=== PATIENT | male | born 1975 | race Caucasian/White ===

== ENCOUNTER 2020-02-05 02:57 | Emergency (ER) | payer MEDICARE, OTHER ==
[~2020-02-05] VITALS: Ht 172.7 cm; Wt 90.0 kg
[2020-02-05] MEDS ORDERED: ASPIRIN 81 MG CHEW TABLET PO ONE (03:30)
[2020-02-05 03:47] LABS: BASO % 0.4 % (0.0-1.0); EOS # 0.2 10^3/uL (0.0-0.5); EOS % 2.5 % (0.0-3.0); HEMATOCRIT 27.3 % (42.0-52.0); HEMOGLOBIN 9.1 g/dl (13.5-17.5); LYMPH % 11.6 % (24.0-44.0); MEAN CORPUSCULAR HEMOGLOBIN 28.5 pg (27.0-33.0); MEAN CORPUSCULAR HGB CONC 33.3 g/dl (32.0-36.5); MEAN CORPUSCULAR VOLUME 85.6 fl (80.0-96.0); MONO # 0.6 10^3/uL (0.0-0.8); MONO % 7.3 % (0.0-5.0); NEUTROPHILS # 6.6 10^3/uL (1.5-8.5); NEUTROPHILS % 77.4 % (36.0-66.0); PLATELET COUNT, AUTOMATED 177 10^3/uL (150-450); RED BLOOD COUNT 3.19 10^6/uL (4.30-6.10); WHITE BLOOD COUNT 8.5 10^3/uL (4.0-10.0)
[2020-02-05 03:57] LABS: INR 0.96
[2020-02-05 03:58] LABS: PARTIAL THROMBOPLASTIN TIME 26.6 SECONDS (24.2-38.5)
--- NOTE | 2020-02-05 04:22 | REPVR ---
PROCEDURE INFORMATION: Exam: XR Chest, 2 Views Exam date and time: 02/05/2020 3:57 AM Age: 44 years old Clinical indication: Chest pain; Type not specified TECHNIQUE: Imaging protocol: XR of the chest Views: 2 views. COMPARISON: No relevant prior studies available. FINDINGS: Lungs: Unremarkable. No consolidation. Pleural space: Unremarkable. No pleural effusion. No pneumothorax. Heart/Mediastinum: Unremarkable. No cardiomegaly. Bones/joints: Unremarkable. IMPRESSION: No acute findings. Electronically signed by: Jenifer Olson On 02/05/2020 04:23:00 AM
--- NOTE | 2020-02-05 04:23 | REPVR ---
PROCEDURE INFORMATION: Exam: US Duplex Lower Extremity Veins, Bilateral Exam date and time: 02/05/2020 4:16 AM Age: 44 years old Clinical indication: Swelling (edema) of limb; Lower extremity, bilateral; Additional info: Leg pain edema R/O dvt TECHNIQUE: Imaging protocol: Real-time duplex ultrasound of the extremities with 2-D elizabeth scale, color Doppler flow and spectral waveform analysis with image documentation. Complete exam focused on the bilateral lower extremity veins. COMPARISON: No relevant prior studies available. FINDINGS: Right deep veins: Unremarkable. The common femoral, femoral, proximal profunda femoral and popliteal veins are patent without thrombus. Normal Doppler waveforms. Normal compressibility and/or augmentation response. Right superficial veins: Saphenofemoral junction is patent without thrombus. Left deep veins: Unremarkable. The common femoral, femoral, proximal profunda femoral and popliteal veins are patent without thrombus. Normal Doppler waveforms. Normal compressibility and/or augmentation response. Left superficial veins: Saphenofemoral junction is patent without thrombus. Soft tissues: Unremarkable. IMPRESSION: No evidence of deep vein thrombosis. Electronically signed by: Jenfier Olson On 02/05/2020 04:24:08 AM
[2020-02-05 04:34] LABS: ALBUMIN 2.7 GM/DL (3.2-5.2); ALT/SGPT 27 U/L (12-78); BILIRUBIN,DIRECT < 0.1 MG/DL (0.0-0.2); BILIRUBIN,TOTAL 0.2 MG/DL (0.2-1.0); BLOOD UREA NITROGEN 98 MG/DL (7-18); CALCIUM LEVEL 7.7 MG/DL (8.5-10.1); CARBON DIOXIDE LEVEL 29 MEQ/L (21-32); CHLORIDE LEVEL 100 MEQ/L (98-107); CK-MB VALUE MASS 7.6 NG/ML (<3.6); CPK CREATINE PHOSPHOKINASE 482 U/L (39-308); GLOMERULAR FILTRATION RATE 4.2 (>60); GLUCOSE, FASTING 285 MG/DL (70-100); LIPASE 451 U/L (73-393); MB/CK RELATIVE INDEX 1.58 (< OR =4); POTASSIUM SERUM 4.5 MEQ/L (3.5-5.1); SODIUM LEVEL 137 MEQ/L (136-145); TOTAL PROTEIN 5.6 GM/DL (6.4-8.2); TROPONIN I 0.02 NG/ML (< 0.10)
--- NOTE | 2020-02-05 06:12 | ECGEPIP ---
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
[2020-02-05 10:02] LABS: CK-MB VALUE MASS 7.4 NG/ML (<3.6); MB/CK RELATIVE INDEX 1.67 (< OR =4); TROPONIN I 0.02 NG/ML (< 0.10)
[2020-02-05 10:23] VITALS: BP 172/85
--- NOTE | 2020-02-06 08:23 | ECGEPIP ---
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
== END 2020-02-05 10:40 | disposition home or self-care (01) ==
LOC: M ED 02:57
DX: R07.89 Other chest pain (principal); E11.9 Type 2 diabetes mellitus without complications; I10 Essential (primary) hypertension; N18.6 End stage renal disease; Z99.2 Dependence on renal dialysis

== ENCOUNTER 2020-04-26 16:35 | Emergency (ER) | payer MEDICARE, OTHER ==
[~2020-04-26] VITALS: Ht 165.1 cm; Wt 80.9 kg
[2020-04-26] MEDS ORDERED: NIFE1POW PO (17:13)
[2020-04-26] MEDS ORDERED: CARV25TA PO (17:13)
[2020-04-26] MEDS ORDERED: INSUH10VL (17:13)
[2020-04-26] MEDS ORDERED: GENT0.1C2 TOP (17:13)
[2020-04-26] MEDS ORDERED: HYDR-3910 PO (17:13)
[2020-04-26] MEDS ORDERED: CLON-412 PO (17:13)
[2020-04-26] MEDS ORDERED: [UNRECOGNIZED DRUG - CODE] PO (17:13)
[2020-04-26] MEDS ORDERED: SEVE800T3 PO (17:13)
[2020-04-26] MEDS ORDERED: LOSA100T50 PO (17:13)
--- NOTE | 2020-04-26 17:22 | REP ---
INDICATION: CHEST PAIN. COMPARISON: 02/05/2020. TECHNIQUE: SINGLE PORTABLE AP VIEW OF THE CHEST WAS PERFORMED. FINDINGS: THERE IS NO ACUTE INFILTRATE OR PULMONARY EDEMA. LUNGS ARE CLEAR. HEART IS NOT SIGNIFICANTLY ENLARGED. MEDIASTINAL SILHOUETTE IS UNREMARKABLE. THE VISUALIZED OSSEOUS STRUCTURES ARE INTACT. IMPRESSION: NO ACUTE PULMONARY DISEASE. <Electronically signed by Gustavo Ivory > 04/26/20 [id number]
[2020-04-26 17:35] LABS: BASO % 0.3 % (0.0-1.0); EOS # 0.1 10^3/uL (0.0-0.5); EOS % 2.1 % (0.0-3.0); HEMATOCRIT 21.8 % (42.0-52.0); HEMOGLOBIN 7.2 g/dl (13.5-17.5); LYMPH # 0.6 10^3/uL (1.5-5.0); LYMPH % 10.8 % (24.0-44.0); MEAN CORPUSCULAR HEMOGLOBIN 30.4 pg (27.0-33.0); MONO # 0.5 10^3/uL (0.0-0.8); NEUTROPHILS # 4.6 10^3/uL (1.5-8.5); NEUTROPHILS % 78.5 % (36.0-66.0); PLATELET COUNT, AUTOMATED 197 10^3/uL (150-450); RED BLOOD COUNT 2.37 10^6/uL (4.30-6.10); WHITE BLOOD COUNT 5.8 10^3/uL (4.0-10.0)
[2020-04-26 18:15] LABS: ALBUMIN 2.2 GM/DL (3.2-5.2); ALT/SGPT 14 U/L (12-78); BILIRUBIN,DIRECT < 0.1 MG/DL (0.0-0.2); BILIRUBIN,TOTAL 0.5 MG/DL (0.2-1.0); BLOOD UREA NITROGEN 55 MG/DL (7-18); CALCIUM LEVEL 7.6 MG/DL (8.5-10.1); CARBON DIOXIDE LEVEL 32 MEQ/L (21-32); CHLORIDE LEVEL 101 MEQ/L (98-107); CK-MB VALUE MASS 4.7 NG/ML (<3.6); CPK CREATINE PHOSPHOKINASE 256 U/L (39-308); GLOMERULAR FILTRATION RATE 5.8 (>60); GLUCOSE, FASTING 65 MG/DL (70-100); LIPASE 96 U/L (73-393); MB/CK RELATIVE INDEX 1.84 (< OR =4); POTASSIUM SERUM 4.7 MEQ/L (3.5-5.1); SODIUM LEVEL 140 MEQ/L (136-145); TOTAL PROTEIN 5.2 GM/DL (6.4-8.2); TROPONIN I < 0.02 NG/ML (< 0.10)
[2020-04-26 19:30] VITALS: BP 121/69
--- NOTE | 2020-04-27 19:53 | ECGEPIP ---
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
== END 2020-04-26 19:47 | disposition home or self-care (01) ==
LOC: M ED 16:35
DX: D64.9 Anemia, unspecified (principal); I10 Essential (primary) hypertension; E11.9 Type 2 diabetes mellitus without complications; Z99.2 Dependence on renal dialysis; Z79.4 Long term (current) use of insulin; Z79.899 Other long term (current) drug therapy

== ENCOUNTER 2020-04-29 21:19 | Inpatient (IN) | payer OTHER, MEDICARE ==
[~2020-04-29] VITALS: Ht 172.7 cm; Wt 75.6 kg
[~2020-04-29 21:19] MED LIST: CARV25TA PO; CLON-412 PO; GENT0.1C2 TOP; HYDR-3910 PO; HumaLOG INSULIN (NovoLOG) PER UNIT SC SCH; INSUH10VL; LOSA100T50 PO; NIFE1POW PO; SEVE800T3 PO; [UNRECOGNIZED DRUG - CODE] PO
[2020-04-29] MEDS ORDERED: MORPHINE 2 MG/ML 1ML VIAL (J2270) IV ONE (21:30)
[2020-04-29] MEDS ORDERED: MORPHINE 4 MG/ML 1ML VIAL/SYRINGE (J2270) IV ONE (21:45)
[2020-04-29 22:09] LABS: BASO % 0.3 % (0.0-1.0); EOS # 0.1 10^3/uL (0.0-0.5); EOS % 0.5 % (0.0-3.0); HEMATOCRIT 23.4 % (42.0-52.0); HEMOGLOBIN 7.6 g/dl (13.5-17.5); LYMPH # 0.5 10^3/uL (1.5-5.0); LYMPH % 5.1 % (24.0-44.0); MEAN CORPUSCULAR HEMOGLOBIN 29.7 pg (27.0-33.0); MEAN CORPUSCULAR HGB CONC 32.5 g/dl (32.0-36.5); MEAN CORPUSCULAR VOLUME 91.4 fl (80.0-96.0); MONO # 0.9 10^3/uL (0.0-0.8); MONO % 8.7 % (2.0-8.0); NEUTROPHILS # 8.3 10^3/uL (1.5-8.5); NEUTROPHILS % 85.1 % (36.0-66.0); PLATELET COUNT, AUTOMATED 240 10^3/uL (150-450); RED BLOOD COUNT 2.56 10^6/uL (4.30-6.10); WHITE BLOOD COUNT 9.8 10^3/uL (4.0-10.0)
[2020-04-29 22:42] LABS: ALBUMIN 2.1 GM/DL (3.2-5.2); ALT/SGPT 13 U/L (12-78); BILIRUBIN,DIRECT < 0.1 MG/DL (0.0-0.2); BILIRUBIN,TOTAL 0.2 MG/DL (0.2-1.0); BLOOD UREA NITROGEN 38 MG/DL (7-18); CALCIUM LEVEL 8.1 MG/DL (8.5-10.1); CARBON DIOXIDE LEVEL 32 MEQ/L (21-32); CHLORIDE LEVEL 97 MEQ/L (98-107); CK-MB VALUE MASS 4.6 NG/ML (<3.6); CPK CREATINE PHOSPHOKINASE 216 U/L (39-308); CREATININE FOR GFR 9.47 MG/DL (0.70-1.30); GLOMERULAR FILTRATION RATE 6.4 (>60); GLUCOSE, FASTING 145 MG/DL (70-100); LIPASE 73 U/L (73-393); MB/CK RELATIVE INDEX 2.13 (< OR =4); POTASSIUM SERUM 3.8 MEQ/L (3.5-5.1); SODIUM LEVEL 138 MEQ/L (136-145); TOTAL PROTEIN 5.5 GM/DL (6.4-8.2); TROPONIN I < 0.02 NG/ML (< 0.10)
--- NOTE | 2020-04-29 23:02 | REPVR ---
PROCEDURE INFORMATION: Exam: CT Abdomen And Pelvis Without Contrast Exam date and time: 04/29/2020 10:36 PM Age: 44 years old Clinical indication: Abdominal pain; Generalized; Additional info: Umbilical hernia, peritoneal dialysis, abd pain TECHNIQUE: Imaging protocol: Computed tomography of the abdomen and pelvis without contrast. Radiation optimization: All CT scans at this facility use at least one of these dose optimization techniques: automated exposure control; mA and/or kV adjustment per patient size (includes targeted exams where dose is matched to clinical indication); or iterative reconstruction. COMPARISON: No relevant prior studies available. FINDINGS: Tubes, catheters and devices: Peritoneal dialysis catheter extending into the posterior pelvis. Lungs: Minimal bibasilar fibro-atelectatic change. Liver: Normal. No mass. Gallbladder and bile ducts: Normal. No calcified stones. No ductal dilation. Pancreas: Normal. No ductal dilation. Spleen: Normal. No splenomegaly. Adrenal glands: Normal. No mass. Kidneys and ureters: Moderate bilateral renal atrophy. Stomach and bowel: Unremarkable. No obstruction. No mucosal thickening. Appendix: There are no changes of appendicitis. A normal appendix is not seen. Intraperitoneal space: Moderate peritoneal ascites with foci of free air consistent with peritoneal dialysis with intraperitoneal catheter. Vasculature: There is mild calcification of the abdominal aorta with extension into the iliac arteries. Lymph nodes: Unremarkable. No enlarged lymph nodes. Urinary bladder: There is bladder wall thickening, however, the bladder is nondistended and is nonspecific. Reproductive: Calcification of the vas deferens. Bones/joints: Unremarkable. No acute fracture. Soft tissues: Moderate epigastric periumbilical hernia containing fat and fluid. IMPRESSION: 1. There is calcification of the vas deferens consistent with diabetes. 2. Peritoneal dialysis catheter in position with intraperitoneal fluid and free air. 3. Moderate epigastric periumbilical hernia containing fluid and fat. 4. Moderate bilateral renal atrophy. 5. There is bladder wall thickening, however, the bladder is nondistended and is nonspecific. Electronically signed by: Manish Recinos On 04/29/2020 23:03:17 PM
[2020-04-30] VITALS (11 sets, daily range): BP systolic 119–178; BP diastolic 54–88
[2020-04-30 00:36] LABS: APPEARANCE, BODY FLUID CLOUDY (CLEAR); PERITONEAL DIALYSATE FL COLOR PALE YELLOW (COLORLESS); SOURCE, BODY FLUID PERITONEAL DIALYSATE
[2020-04-30] MEDS ORDERED: SEVE800T3 PO (01:02)
[2020-04-30] MEDS ORDERED: INSUH10VL SC (01:02)
[2020-04-30] MEDS ORDERED: NIFE90TA20 PO (01:02)
[2020-04-30] MEDS ORDERED: HYDR-3910 PO (01:02)
[2020-04-30] MEDS ORDERED: CLON-412 PO (01:02)
[2020-04-30] MEDS ORDERED: CLOB0.0548 TOP (01:02)
[2020-04-30] MEDS ORDERED: LOSA100T50 PO (01:02)
[2020-04-30] MEDS ORDERED: MIRA1POW3 PO (01:02)
[2020-04-30] MEDS ORDERED: GENT0.1C2 TOP (01:02)
[2020-04-30] MEDS ORDERED: CARV25TA PO (01:02)
[2020-04-30] MEDS ORDERED: CLOBETASOL PROPIONATE EMOLLIENT 0.05% CR 60 GM TOP PRN (01:05)
[2020-04-30] MEDS ORDERED: GLUCAGON INJ 1MG VIAL SC PRN (01:05)
[2020-04-30] MEDS ORDERED: DEXTROSE 50% 50 ML SYRINGE IV PRN (01:05)
[2020-04-30] MEDS ORDERED: GLUCOSE 4GM CHEW TABLET PO PRN (01:05)
[2020-04-30 01:08] LABS: RSV AMPLIFICATION NEGATIVE (NEGATIVE)
[2020-04-30] MEDS ORDERED: MORPHINE 4 MG/ML 1ML VIAL/SYRINGE (J2270) IV PRN (01:10)
[2020-04-30 01:33] LABS: FERRITIN 1260 NG/ML (26-388); IRON (FE) 14 UG/DL (65-175); LDH LACTATE DEHYDROGENASE 160 U/L (87-241); PERCENT SATURATION 6.9 % (19.7-50.0); TOTAL IRON BINDING CAPACITY 203 UG/DL (250-450)
[2020-04-30 01:51] LABS: ERYTHROCYTE SEDIMENTATION RATE 128 mm/hr (0-15)
[2020-04-30] MEDS ORDERED: GENTAMICIN SULF 80MG/2ML VIAL IP ONE ×2 (02:00→23:05)
[2020-04-30] MEDS ORDERED: VANCOMYCIN 1000MG/20ML VIAL IP ONE (02:00)
--- NOTE | 2020-04-30 02:06 | HPEPDOC ---
[facility] Medical History & Physical Date of Admission Apr 30, 2020 Date of Service: Apr 30, 2020 History and Physical CHIEF COMPLAINT: Abdominal pain for months, worse in the past few days HISTORY OF PRESENT ILLNESS: 44-year-old male with history of hypertension, diabetes, end-stage renal disease on peritoneal dialysis for the past 1-1/2 years was in his usual state of health until a month ago when he noticed a pop in his belly without fever or chills, dialysate fluid was examined last Tuesday, which was negative for infection. He presents today due to worsening pain that he noted for the past couple days, described as very sharp and sore from left to right, worsened when the machine is draining. He describes bloating without nausea, vomiting. Pain is described in the lower abdomen moving from left to right, worse with movement, better with laying still, 5 out of 10 on a pain scale, crampy on and off intermittent. No medications were taken for pain. He denies hematuria or dysuria. He also complains of bilateral shoulder pain that he first noticed when the abdominal pain occurred. Patient has a reducible umbilical hernia worsens when he carries his granddaughter and his peritoneal bags. In the emergency room, CT abdomen and pelvis was negative for nephrolithiasis, incarceration, bowel obstruction. He was found to have a normal lactic acid level in a reducible umbilical hernia. Clinically. Dialysate fluid, however, had white blood cell count of 3504, 86% neutrophils. EKG sinus rhythm metrical rate [address] T wave changes. Troponin negative. Patient is admitted for peritonitis secondary to peritoneal dialysis, uncontrolled hypertension with presenting blood pressure 166/87 due to pain, and anemia hemoglobin of 7.6, but patient refused blood transfusion. Patient says he gets IV iron infusion from his die barber, and denies coffee- ground emesis, hematemesis, bright red blood per rectum, melena, black tarry stools, chest pain, pressure, tightness, shortness of breath, lightheadedness, dizziness or near syncope. He complains of chronic fatigue which is unchanged. PAST MEDICAL HISTORY: hypertension, diabetes, end-stage renal disease on peritoneal dialysis for the past 1-1/2 years PAST SURGICAL HISTORY: Left arm fistula, peritoneal dialysis catheter SOCIAL HISTORY: Denies alcohol, cigarettes or recreational drug use. Full code. No healthcare proxy. Patient wants his daughter Yenny [phone] to be called for emergencies FAMILY HISTORY: Father COPD mother with bone disease, pacemaker, low blood pressure ALLERGIES: Please see below. REVIEW OF SYSTEMS: 12 point review of systems negative aside from positive findings on history of present illness HOME MEDICATIONS: Please see below. PHYSICAL EXAMINATION: VITAL SIGNS: See below GENERAL APPEARANCE: Pale, no icterus, jaundice HEENT: Pupils equally round, reactive to light accommodation. Extra muscles intact. Moist mucous membranes. No JVD, no thyromegaly or cervical lymphadenopathy CARDIOVASCULAR: S1, S2 regular rate rhythm. Systolic ejection murmur at the apex without radiation. Nondisplaced PMI. No carotid bruits LUNGS: Air entry is equal bilaterally. Clear to auscultation. No wheezing or rales ABDOMEN: Slightly distended. Reducible umbilical hernia, tender bilateral lower quadrants without radiation. Positive bowel sounds, soft 4 quadrants EXTREMITIES: Left arm fistula. No cyanosis, clubbing or pitting edema LABORATORY DATA: See below. IMAGING: Exam: CT Abdomen And Pelvis Without Contrast Exam date and time: 04/29/2020 10:36 PM Age: 44 years old Clinical indication: Abdominal pain; Generalized; Additional info: Umbilical hernia, peritoneal dialysis, abd pain TECHNIQUE: Imaging protocol: Computed tomography of the abdomen and pelvis without contrast. Radiation optimization: All CT scans at this facility use at least one of these dose optimization techniques: automated exposure control; mA and/or kV adjustment per patient size (includes targeted exams where dose is matched to clinical indication); or iterative reconstruction. COMPARISON: No relevant prior studies available. FINDINGS: Tubes, catheters and devices: Peritoneal dialysis catheter extending into the posterior pelvis. Lungs: Minimal bibasilar fibro-atelectatic change. Liver: Normal. No mass. Gallbladder and bile ducts: Normal. No calcified stones. No ductal dilation. Pancreas: Normal. No ductal dilation. Spleen: Normal. No splenomegaly. Adrenal glands: Normal. No mass. Kidneys and ureters: Moderate bilateral renal atrophy. Stomach and bowel: Unremarkable. No obstruction. No mucosal thickening. Appendix: There are no changes of appendicitis. A normal appendix is not seen. Intraperitoneal space: Moderate peritoneal ascites with foci of free air consistent with peritoneal dialysis with intraperitoneal catheter. Vasculature: There is mild calcification of the abdominal aorta with extension into the iliac arteries. Lymph nodes: Unremarkable. No enlarged lymph nodes. Urinary bladder: There is bladder wall thickening, however, the bladder is nondistended and is nonspecific. Reproductive: Calcification of the vas deferens. Bones/joints: Unremarkable. No acute fracture. Soft tissues: Moderate epigastric periumbilical hernia containing fat and fluid. IMPRESSION: 1. There is calcification of the vas deferens consistent with diabetes. 2. Peritoneal dialysis catheter in position with intraperitoneal fluid and free air. 3. Moderate epigastric periumbilical hernia containing fluid and fat. 4. Moderate bilateral renal atrophy. 5. There is bladder wall thickening, however, the bladder is nondistended and is nonspecific. Electronically signed by: Manish Recinos On 04/29/2020 23:03:17 PM MICROBIOLOGY: Please see below. ASSESSMENT/PLAN: 44-year-old male with history of hypertension, diabetes, end-stage renal disease on peritoneal dialysis for the past 1-1/2 years was in his usual state of health until a month ago when he noticed a pop in his belly without fever or chills, dialysate fluid was examined last Tuesday, which was negative for infection. He presents today due to worsening pain that he noted for the past couple days, described as very sharp and sore from left to right, worsened when the machine is draining. He describes bloating without nausea, vomiting. Pain is described in the lower abdomen moving from left to right, not to the back. No hematuria or dysuria. Patient has a reducible umbilical hernia worsens when he carries his granddaughter and his peritoneal bags. In the emergency room, CT abdomen and pelvis was negative for nephrolithiasis, incarceration, bowel obstruction. He was found to have a normal lactic acid level in a reducible umbilical herniaClinically. Dialysate fluid, however, had white blood cell count of 3504, 86% neutrophils. Patient is admitted for peritonitis secondary to peritoneal dialysis, uncontrolled hypertension with presenting blood pressure 166/87 due to pain, and anemia hemoglobin of 7.6, but patient refused blood transfusion. Patient says he gets IV iron infusion from his die barber, and denies coffee- ground emesis, hematemesis, bright red blood per rectum, melena, black tarry stools, chest pain, pressure, tightness, shortness of breath, lightheadedness, dizziness or near syncope. He complains of chronic fatigue which is unchanged. Peritonitis secondary to peritoneal dialysis catheter -Nephrology managing intraperitoneal antibiotics End-stage renal disease on peritoneal dialysis -Managed by nephrology Reducible umbilical hernia with normal lactic acid -Patient has noticed worsening pain with exertion. No incarceration on CT .surgery consulted. Uncontrolled Hypertension due to abdominal pain from peritonitis -As needed Percocet and IV morphine for breakthrough pain -Resume home Coreg, hydralazine, clonidine , losartan and nifedipine Diabetes -Insulin pump. Fingersticks every before meals at bedtime check A1c in the morning DVT prophylaxis -Compression stockings Diet -Consistent carbohydrate renal diet CODE STATUS: Full code Vital Signs Vital Signs Date Time Temp Pulse Resp B/P (MAP) Pulse Ox O2 Delivery O2 Flow Rate FiO2 04/29/20 23:30 85 168/84 (112) 96 04/29/20 22:06 19 Room Air 04/29/20 21:33 97.9 Laboratory Data Labs 24H Laboratory Tests 2 04/29/20 21:37: Immature Granulocyte % (Auto) 0.3, Neutrophils (%) (Auto) 85.1H, Lymphocytes (%) (Auto) 5.1L, Monocytes (%) (Auto) 8.7H, Eosinophils (%) (Auto) 0.5, Basophils (%) (Auto) 0.3, Neutrophils # (Auto) 8.3, Lymphocytes # (Auto) 0.5L, Monocytes # (Auto) 0.9H, Eosinophils # (Auto) 0.1, Basophils # (Auto) 0.0, Reticulocyte # (auto) 55.9, Nucleated Red Blood Cells % (auto) 0.0, Differential Slide Review Report, Peripheral Blood Smear Path Consult PERIPHERAL SMEAR, Percent Re ticulocyte Count 2.2H, Reticulocyte Hemoglobin Equivalent 32.2, Anion Gap 9, Glomerular Filtration Rate 6.4L, Lactic Acid Level 1.3, Calcium Level 8.1L, Iron Level 14L, Total Iron Binding Capacity 203L, Transferrin % Saturation 6.9L, Ferritin 1260H, Total Bilirubin 0.2, Direct Bilirubin < 0.1, Aspartate Amino Transf (AST/SGOT) 8, Alanine Aminotransferase (ALT/SGPT) 13, Alkaline Phosphatase 66, Lactate Dehydrogenase 160, Total Creatine Kinase 216, Creatine Kinase MB 4.6H, Creatine Kinase MB Relative Index 2.13, Troponin I < 0.02, C- Reactive Protein, Quantitative 7.30H, Total Protein 5.5L, Albumin 2.1L, Albumin/Globulin Ratio 0.6, Lipase 73 3/3/21 00:19: Coronavirus (COVID-19)(PCR) NEGATIVE, Influenza Type A (RT-PCR) NEGATIVE, Influenza Type B (RT-PCR) NEGATIVE, Respiratory Syncytial Virus (PCR) NEGATIVE 04/30/20 00:20: Body Fluid Source PERITONEAL DIALYSATE, Body Fluid WBC (Auto) 3504H, Body Fluid RBC (Auto) < 2, Body Fluid Mononuclear Cells % Auto 13.6H, Fluid Polymorphonuclear Cell % Auto 86.4H, Peritoneal Fluid Color PALE YELLOW, Peritoneal Fluid Appearance CLOUDY CBC/BMP Laboratory Tests 04/29/20 21:37 Microbiology Microbiology 04/30/20 Gram Stain, Received Pending 04/30/20 Body Fluid Culture, Received Pending 04/29/20 Blood Culture, Received Pending 04/29/20 Blood Culture, Received Pending Home Medications Scheduled Carvedilol (Carvedilol) 25 Mg Tablet, 25 MG PO BID Clonidine HCl (Clonidine HCl) 0.1 Mg Tablet, 0.1 MG PO BID Gentamicin Sulfate (Gentamicin Sulfate) 30 Gm Cream..g., 1 DOSE TOP DAILY APPLY TO DRESSING AND TAPE OVER PORT AFTER SHOWER Hydralazine HCl (Hydralazine HCl) 25 Mg Tablet, 25 MG PO QHS HOLD IF SBP<190 Insulin Human Lispro (Novolog) 100 Unit/1 Ml Vial, 1 DOSE SC ASDIRECTED VIA INSULIN PUMP Losartan Potassium (Losartan Potassium) 100 Mg Tablet, 100 MG PO DAILY Nifedipine (Nifedipine ER) 90 Mg Tablet.er, 90 MG PO BID Sevelamer Carbonate (Sevelamer Carbonate) 800 Mg Tablet, 2,400 MG PO BIDWM Scheduled PRN Clobetasol Propionate/Emoll (Clobetasol Emollient 0.05% Crm) 0.05% 15GM Cream..g., 1 DOSE TOP BID PRN for RASH/ITCHING APPLY TO HANDS NEEDED Polyethylene Glycol 3350 (Miralax) 17 Gm Powd.pack, 17 GM PO DAILY PRN for CONS TIPATION Allergies Coded Allergies: No Known Allergies (Unverified , 02/05/20) A-FIB/CHADSVASC A-FIB History Current/History of A-Fib/PAF?: No Current PO Anticoag Therapy: No MARISOL BURDICK MD Apr 30, 2020 02:06
[2020-04-30] MEDS: cloNIDine 0.1MG TABLET PO SCH ×4 (02:45→22:02)
[2020-04-30] MEDS: NIFEdipine 30 MG XL TAB PO SCH ×3 (02:45→22:03)
[2020-04-30] MEDS: CARVedilol 12.5 MG TAB PO SCH ×3 (02:46→22:02)
[2020-04-30] MEDS ORDERED: LOSARTAN 50MG TABLET PO ONE (03:30)
[2020-04-30] MEDS: PERCOCET 5MG/325MG TAB PO PRN ×3 (03:56→22:12)
[2020-04-30 06:21] LABS: BASO % 0.3 % (0.0-1.0); EOS # 0.1 10^3/uL (0.0-0.5); EOS % 1.6 % (0.0-3.0); LYMPH # 0.5 10^3/uL (1.5-5.0); LYMPH % 8.3 % (24.0-44.0); MEAN CORPUSCULAR HEMOGLOBIN 30.5 pg (27.0-33.0); MEAN CORPUSCULAR HGB CONC 33.5 g/dl (32.0-36.5); MEAN CORPUSCULAR VOLUME 91.1 fl (80.0-96.0); MONO # 0.7 10^3/uL (0.0-0.8); MONO % 10.6 % (2.0-8.0); NEUTROPHILS # 4.9 10^3/uL (1.5-8.5); NEUTROPHILS % 78.9 % (36.0-66.0); PLATELET COUNT, AUTOMATED 203 10^3/uL (150-450); RED BLOOD COUNT 2.13 10^6/uL (4.30-6.10); WHITE BLOOD COUNT 6.3 10^3/uL (4.0-10.0)
[2020-04-30 06:25] LABS: HEMATOCRIT 19.4 % (42.0-52.0); HEMOGLOBIN 6.5 g/dl (13.5-17.5)
[2020-04-30 06:39] LABS: CALCIUM LEVEL 7.9 MG/DL (8.5-10.1); CREATININE FOR GFR 9.79 MG/DL (0.70-1.30); GLOMERULAR FILTRATION RATE 6.2 (>60); POTASSIUM SERUM 3.7 MEQ/L (3.5-5.1)
[2020-04-30] MEDS ORDERED: HumaLOG INSULIN (NovoLOG) PER UNIT SC SCH ×2 (07:30→09:00)
[2020-04-30] MEDS ORDERED: NON-FORMULARY 1 EA EA SQ SCH (07:30)
[2020-04-30] MEDS: (RENVELA) SEVELAMER **CARBONate** 800 MG TAB PO SCH ×3 (08:00→18:00)
--- NOTE | 2020-04-30 08:39 | IPN ---
PROGRESS NOTE DATE: 04/30/2020 SUBJECTIVE: Tariq is seen [facility]. He is a new resident to [facility]. He previously was living in [facility]. His cardiac specialist was in [place]. He has a history of diabetes, endstage renal disease, on peritoneal dialysis for the past year and a half, chronic anemia related to his chronic kidney disease, presented with an umbilical hernia which was reduced in the Emergency Room and was discovered to have peritonitis for which he is on antibiotic treatment as directed by Nephrology. He also has a history of hypertensive heart disease. Denies any chest pain, shortness of breath, fevers or chills. The abdominal pain is better than yesterday but still feels his abdomen is fairly tenderness. OBJECTIVE: VITAL SIGNS: Afebrile. T-max is 98 degrees, blood pressure 133/79. GENERAL APPEARANCE: He is alert, conversant in no distress. LUNGS: Clear. HEART: Regular rate and rhythm. ABDOMEN: Soft, diffusely mildly tender. His umbilical hernia is reducible and nontender. EXTREMITIES: Trace peripheral edema. LABORATORY DATA: White count 6.3, hemoglobin is down to 6.5 (patient is refusing transfusion or iron infusion). Platelets 203,000, sodium 138, potassium is 3.7, creatinine is 9.7. Iron studies are pending. COVID test is negative. IMPRESSION: 1. Peritonitis secondary to peritoneal dialysis catheter. Nephrology is managing intraperitoneal antibiotics. I had a discussion with him that if he plans to live in [facility] he might be well-served to have local Nephrology. His cardiac specialist is currently in [place], they have a good relationship. He is hesitant to change cardiac specialist but understands the logistic problems of being three hours away from his cardiac specialist. 2. Umbilical hernia. Surgery has been consulted. Awaiting for written consultation. 3. Hypertension, blood pressure was elevated probably from pain and blood pressure is under better control now. 4. Diabetes, on an insulin bump. Hemoglobin A1c is ordered and pending. 5. Endstage renal disease, on peritoneal dialysis. Nephrology note is pending.
[2020-04-30] MEDS: LOSARTAN 50MG TABLET PO SCH (08:55)
[2020-04-30] MEDS: GENTAMICIN SULFATE 0.1% OINT 15 GM TOP SCH (08:57)
--- NOTE | 2020-04-30 09:47 | REP ---
INDICATION: shoulder pain COMPARISON: None. TECHNIQUE: Internal rotation, external rotation, and Y view right and left shoulder. FINDINGS: Right shoulder demonstrates subtle cortical irregularity and washed out appearance to the calcified glenoid along with similar subtle washed out appearance to the humeral head with subtle subchondral heterogeneity could changes and findings to suggest old Hill-Sachs deformity. The acromioclavicular joint appears relatively normal. Subacromial space is normal. No significant periarticular calcifications are identified. Left shoulder demonstrates subtle cortical irregularity and washed out appearance to the ossified glenoid. The humeral head appears normal. The acromioclavicular joint appears normal. The subacromial space is normal. IMPRESSION: 1. Changes related to the right shoulder may reflect old dislocation injury. 2. Subtle age-related changes to the bilateral glenoid. <Electronically signed by Will Coffman > 04/30/20 0943
--- NOTE | 2020-04-30 11:00 | CR.PDOC ---
General Surgery Consultation Date of Consultation 04/30/20 History and Physical General Surgery Dr Dang. HISTORY OF PRESENT ILLNESS: The patient is a 44-year-old male with history of end-stage renal disease on peritoneal dialysis for the past 1-1/2 years. The patient states he has been having abdominal discomfort for the past 1-2 weeks. Reports that dialysate fluid was examined last Tuesday, which was negative for infection. He was admitted 04/30/20 due to worsening abdominal pain that he noted for the past couple days, described as very sore and the patient stated it worsened when the machine was draining. He has felt bloated. The patient denies nausea, vomiting. Denies diarrhea, constipation, melena, hematochezia. Patient reports he has had an umbilical hernia for some time. He states it sometimes becomes sore to touch but there has been no redness or swelling. He does report that he notices it feels worse if he carries his granddaughter or his peritoneal bags, or does a lot of physical activity. In the emergency room, the patient was noted to have reducible umbilical hernia. The patient was subsequently admitted for peritonitis secondary to peritoneal dialysis catheter. Gen. surgery is consulted for opinion regarding umbilical hernia. PAST MEDICAL HISTORY: Hypertension Diabetes ESRD, on peritoneal dialysis for the past one to one and half years Chronic anemia secondary to ESRD PAST SURGICAL HISTORY: INCLUDES: History of left arm AV fistula placement Her to kneel dialysis catheter placement ALLERGIES: Please see below. FAMILY HISTORY: Father COPD mother with bone disease, pacemaker, low blood pressure SOCIAL HISTORY: Denies alcohol, cigarettes or recreational drug use. HOME MEDICATIONS: Please see below. REVIEW OF SYSTEMS: As noted in HPI otherwise 10 point review of systems unremarkable. PHYSICAL EXAMINATION: VITALS SIGNS: Please see below. GENERAL APPEARANCE:Patient seen sitting up in bed, awake, alert, and oriented. Comfortable, in no acute distress. SKIN: Warm and moist. HEENT: Normocephalic, atraumatic. [place] palpebral conjunctiva, anicteric sclerae. Lips and mucosa appear moist. NECK: Supple, no thyromegaly. No obvious jugular venous distention LUNGS:Clear to auscultation bilaterally. No wheezing appreciated. HEART: Regular rate and rhythm with no murmurs appreciated. ABDOMEN: Abdomen is mildly distended but soft and mild tenderness is noted with palpation in the lower left and right quadrants. No hepatosplenomegaly. Peritoneal dialysis catheter with dressing intact, no drainage is noted. Umbilical hernia is noted however there is no specific tenderness around this area, no erythema, no swelling. No groin herniations noted. No guarding. No grimacing with palpation. No rebound tenderness. No masses appreciated. EXTREMITIES: Extremities have no deformities. No edema identified LABORATORY DATA: Hemoglobin 6.5, mag rate 19.4, platelet 203 Actiq acid 0.9 IMAGING STUDIES: CT abdomen/pelvis without contrast 04/29/20 indicated peritoneal dialysis catheter in position with intraperitoneal fluid and free air. periumbilical hernia containing fluid and fat. IMPRESSION AND PLAN: Umbilical hernia. The patient is reviewed and examined as per Dr. Dang. Could possibly consider umbilical hernia repair electively as an outpatient after he completes treatment for his peritonitis. The patient would need to be placed temporarily on hemodialysis perioperatively. Peritonitis secondary to peritoneal dialysis catheter. Nephrology managing intraperitoneal antibiotics. Monitor need for peritoneal dialysis catheter removal if requested by nephrology. ADDENDUM: I spoke to Mr. Crane and independently examined him. He has been having on and off abdominal pain for the past two weeks, worse the past 2 days. In the ER, he may have had 2 issues, one is possible acute incarceration of his long standing (at least 2 years) umbilical hernia and peritonitis related to his PD catheter. It was reported that the umbilical hernia was reduced back in the ED.He was started on antibiotics for the PD catheter associated peritonitis. Today patient reports improvement of his abdominal pain. No nausea, severe bloating. Afebrile. On exam, abdomen slightly rounded, not distended. roughly about a 4 cm soft bulging at the umbilicus, slight redundant skin, no skin breakdown or ulceration, no leakage of dialysate through skin. no skin redness. mild discomfort on manipulation but reducible. No generalized guarding or rebound. I reviewed his imaging, this shows a roughly 3x 3 cm fascial defect, the tract of the PD cath is close to the left side of the umbilical hernia. This is containing fluid and soft tissue, probably omentum. No bowels within the hernia defect/sac. Impression and Plan PD catheter associated peritonitis seems to be responding to antibiotics. Umbilical hernia no indication for emergent/urgent repair both clinically and on imaging. He has actually spoken to a surgeon in [place] regarding this and from my conversation maybe planning to follow up with him. Either way will need some surgical planning including temporary halt fo peritoneal dialysis, hemodialysis probably for 4 weeks postop to allow for healing and incorporating of mesh. will need to find a way to thread the catheter away from the mesh. If he would like to have procedure done here, can follow up with us as an outpatient. Vital Signs Vital Signs Date Time Temp Pulse Resp B/P (MAP) Pulse Ox O2 Delivery O2 Flow Rate FiO2 04/30/20 08:55 135/79 04/30/20 08:55 77 04/30/20 06:00 97.7 18 96 Room Air I&Os I&O- Last 24 Hours up to 6 AM 04/30/20 06:00 Intake Total 1500 ml Output Total 1900 ml Balance -400 ml Laboratory Data Labs 24H Laboratory Tests 2 04/29/20 21:37: Immature Granulocyte % (Auto) 0.3, Neutrophils (%) (Auto) 85.1H, Lymphocytes (%) (Auto) 5.1L, Monocytes (%) (Auto) 8.7H, Eosinophils (%) (Auto) 0.5, Basophils (%) (Auto) 0.3, Neutrophils # (Auto) 8.3, Lymphocytes # (Auto) 0.5L, Monocytes # (Auto) 0.9H, Eosinophils # (Auto) 0.1, Basophils # (Auto) 0.0, Reticulocyte # (auto) 55.9, Nucleated Red Blood Cells % (auto) 0.0, Differential Slide Review Report, Peripheral Blood Smear Path Consult PERIPHERAL SMEAR, Erythrocyte Sedimentation Rate 128H, Percent Reticulocyte Count 2.2H, Reticulocyte Hemoglobin Equivalent 32.2, Anion Gap 9, Glomerular Filtration Rate 6.4L, Lactic Acid Level 1.3, Calcium Level 8.1L, Iron Level 14L, Total Iron Binding Capacity 203L, Transferrin % Saturation 6.9L, Ferritin 1260H, Total Bilirubin 0.2, Direct Bilirubin < 0.1, Aspartate Amino Transf (AST/SGOT) 8, Alanine Aminotransferase (ALT/SGPT) 13, Alkaline Phosphatase 66, Lactate Dehydrogenase 160, Total Creatine Kinase 216, Creatine Kinase MB 4.6H, Creatine Kinase MB Relative Index 2.13, Troponin I < 0.02, C-Reactive Protein, Quantitative 7.30H, Total Protein 5.5L, Albumin 2.1L, Albumin/Globulin Ratio 0.6, Lipase 73, Procalcitonin 0.48 04/30/20 00:19: Coronavirus (COVID-19)(PCR) NEGATIVE, Influenza Type A (RT-PCR) NEGATIVE, Influenza Type B (RT-PCR) NEGATIVE, Respiratory Syncytial Virus (PCR) NEGATIVE 04/30/20 00:20: Body Fluid Source PERITONEAL DIALYSATE, Body Fluid WBC (Auto) 3504H, Body Fluid RBC (Auto) < 2, Body Fluid Mononuclear Cells % Auto 13.6H, Fluid Polymorphonuclear Cell % Auto 86.4H, Peritoneal Fluid Color PALE YELLOW, Perito aaron Fluid Appearance CLOUDY 04/30/20 03:09: Bedside Glucose (Misc Panel) 81 04/30/20 06:03: Immature Granulocyte % (Auto) 0.3, Neutrophils (%) (Auto) 78.9H, Lymphocytes (%) (Auto) 8.3L, Monocytes (%) (Auto) 10.6H, Eosinophils (%) (Auto) 1.6, Basophils (%) (Auto) 0.3, Neutrophils # (Auto) 4.9, Lymphocytes # (Auto) 0.5L, Monocytes # (Auto) 0.7, Eosinophils # (Auto) 0.1, Basophils # (Auto) 0.0, Nucleated Red Blood Cells % (auto) 0.0, Anion Gap 8, Glomerular Filtration Rate 6.2L, Lactic Acid Level 0.9, Calcium Level 7.9L CBC/BMP Laboratory Tests 04/29/20 21:37 04/30/20 06:03 Microbiology Microbiology 04/30/20 Gram Stain - Final, Resulted 04/30/20 Body Fluid Culture, Resulted Pending 04/29/20 Blood Culture, Received Pending 04/29/20 Blood Culture, Received Pending Home Medications Scheduled Carvedilol (Carvedilol) 25 Mg Tablet, 25 MG PO BID, (Reported) Clonidine HCl (Clonidine HCl) 0.1 Mg Tablet, 0.1 MG PO BID, (Reported) Gentamicin Sulfate (Gentamicin Sulfate) 30 Gm Cream..g., 1 DOSE TOP DAILY, (Reported) APPLY TO DRESSING AND TAPE OVER PORT AFTER SHOWER Hydralazine HCl (Hydralazine HCl) 25 Mg Tablet, 25 MG PO QHS, (Reported) HOLD IF SBP<190 Insulin Human Lispro (Novolog) 100 Unit/1 Ml Vial, 1 DOSE SC ASDIRECTED, (Reported) VIA INSULIN PUMP Losartan Potassium (Losartan Potassium) 100 Mg Tablet, 100 MG PO DAILY, (Reported) Nifedipine (Nifedipine ER) 90 Mg Tablet.er, 90 MG PO BID, (Reported) Sevelamer Carbonate (Sevelamer Carbonate) 800 Mg Tablet, 2,400 MG PO BIDWM, (Reported) Scheduled PRN Clobetasol Propionate/Emoll (Clobetasol Emollient 0.05% Crm) 0.05% 15GM Cream..g., 1 DOSE TOP BID PRN for RASH/ITCHING, (Reported) APPLY TO HANDS NEEDED Polyethylene Glycol 3350 (Miralax) 17 Gm Powd.pack, 17 GM PO DAILY PRN for CONSTIPATION, (Reported) Allergies Coded Allergies: No Known Allergies (Unverified , 02/05/20) Chacha Uriarte Apr 30, 2020 11:00 KAI DANG MD Apr 30, 2020 23:41
[2020-04-30 11:58] LABS: SOURCE, BODY FLUID PERITONEAL
[2020-04-30 11:59] LABS: APPEARANCE, BODY FLUID CLOUDY (CLEAR); PERITONEAL FL COLOR PALE YELLOW (COLORLESS)
[2020-04-30] MEDS ORDERED: IRON SUCROSE 100MG 5ML VIAL (J1756 PER 1MG) IV ONE (12:00)
[2020-04-30] MEDS ORDERED: IRON SUCROSE 25 MG in NS 25 ML IV ONE (14:00)
[2020-04-30] MEDS ORDERED: IRON SUCROSE 275 MG in NS 250 ML IV ONE (14:15)
--- NOTE | 2020-04-30 14:22 | ECGEPIP ---
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
--- NOTE | 2020-04-30 16:32 | CR ---
CONSULTATION DATE: 04/30/2020 REQUESTING PHYSICIAN: Dr. Lily Canseco CONSULTING PHYSICIAN: Dr. Fallon Cabezas REASON FOR CONSULTATION: Management of end-stage renal disease, on peritoneal dialysis and management of peritonitis. HISTORY OF PRESENT ILLNESS: Mr. Crane is previously unknown to me. He is a 44-year-old male with a past medical history of end-stage renal disease, on peritoneal dialysis since 2018. His bereavement counselor is Dr. Ashley. Patient reports end-stage renal disease secondary to diabetes mellitus and also a past medical history of hypertension, umbilical hernia, anemia, secondary hyperparathyroidism, and other comorbid conditions mentioned below. Patient tells me that he has been traveling and has recently been in [place] and did not receive his usual Aranesp. He also notes that his umbilical hernia has been increasing over the past year, but he has not yet followed up with general surgery, as he has been directed to do by his primary bereavement counselor. Patient presented to the emergency room last night due to complaint of sharp abdominal pains, especially when his cycler has been draining his peritoneal dialysis (PD) fluid. In the emergency room, CT of the abdomen and pelvis revealed a moderate periumbilical hernia, and laboratory studies were consistent with peritonitis with white blood cell (WBC) count of 3500 (peritoneal cell count). Patient was also found to be severely anemic with hemoglobin of 6.5 and extremely deficient iron stores. He was refusing blood transfusion overnight for concern of sensitization and trouble with kidney transplant in the future. Overnight he was treated with intraperitoneal vancomycin and gentamicin, and peritoneal cultures are pending. He reports that his abdominal pain has improved. MEDICAL HISTORY: 1. End-stage renal disease secondary to diabetes, on peritoneal dialysis. 2. Anemia related to chronic renal failure and iron deficiency. 3. Periumbilical hernia. 4. Secondary hyperparathyroidism of renal origin. 5. Hypertension. SURGICAL HISTORY: 1. Left arm arteriovenous (AV) fistula. 2. Peritoneal dialysis catheter. SOCIAL HISTORY: Denies alcohol, cigarettes, or drug use. FAMILY HISTORY: Denies a family history of renal failure. ALLERGIES: No known drug allergies. REVIEW OF SYSTEMS: CONSTITUTIONAL: Denies fevers or chills. EYES: Denies visual changes or tearing. ENT: Denies odynophagia or rhinorrhea. CARDIAC: Denies chest pain or palpitations. RESPIRATORY: Denies cough. Does report some dyspnea with exertion. GASTROINTESTINAL: Reports periumbilical hernia and abdominal pain, mostly when his cycler is draining. Denies any trouble with his PD catheter exit site. GENITOURINARY: Denies dysuria or hematuria. MUSCULOSKELETAL: Denies leg swelling or arthralgias or myalgias. NEUROLOGIC: Denies seizure or syncope. HEMATOLOGIC: Reports anemia. Denies ever having blood transfusions in the past. Reports he has missed his last doses of Aranesp. SKIN: Denies any new rashes or ulcers. Remainder review of systems is negative or as per history of present illness (HPI). VITAL SIGNS: Temperature 98.1, pulse 71, respiratory rate 18, blood pressure 132/79, saturating 97% on room air. GENERAL: Patient is seen awake, alert, oriented, comfortable in no apparent distress. Extraocular muscles are intact. There is conjunctival pallor. Mucous membranes are moist. Neck is supple. There is no jugular venous distention. There is carotid bruit. HEART: Sounds are regular, S1, S2. Peripheral pulses are palpable. LUNGS: Clear to auscultation bilaterally. No crackle or rale. ABDOMEN: Distended. There is peritoneal dialysis fluid in situ. He has periumbilical hernia. His PD catheter exit site is clean, dry, and intact with dressing. EXTREMITIES: Negative for edema, clubbing, or cyanosis. There is a patent AV fistula in the left arm with thrill and bruit. SKIN: Shows pallor. NEUROLOGIC: He is oriented times three, interactive and at baseline mentation. LABORATORY DATA: Sodium 138, potassium 3.8, bicarbonate 32, BUN 38. Iron 14, transferrin saturation 6%, ferritin 1200. Albumin 2.1. Hemoglobin 6.5, platelets 203. Peritoneal cell count shows WBC 3500 with polymorphs being 86%. Peritoneal fluid culture shows few gram-positive cocci and many WBC. Blood cultures are pending. CT abdomen and pelvis is noted with moderate epigastric periumbilical hernia containing fluid and fat. INPATIENT MEDICATIONS: - Venofer 300 mg IV times one is ordered. - carvedilol 25 mg by mouth twice a day - clonidine 0.1 mg by mouth twice a day - Aranesp 100 mcg subcutaneous times one dose tomorrow - He received vancomycin 2 grams intraperitoneal times one dose. - gentamicin 80 mg intraperitoneal times one dose - losartan 100 mg by mouth daily - morphine as needed - nifedipine 90 mg by mouth twice a day - Percocet as needed - Renvela 2.4 grams by mouth twice a day with meals PROBLEMS: 1. End-stage renal disease, on peritoneal dialysis. Orders are written to continue peritoneal dialysis with 1.5 liter volume, five daily exchanges with all 2.5% dianeal. He will need to followup closely with surgery as a outpatient to repair his periumbilical hernia. I have advised him of the same at length. He has been putting this off for at least 1 year. He does have a backup AV fistula. Once his abdominal pain related to the peritonitis improves, we will increase the volume of his exchanges to 2 liters. PD orders were discussed with the nurse. I also updated his home peritoneal dialysis nurse, Elisabeth, phone number [phone]. 2. Peritonitis associated with peritoneal dialysis. His peritoneal cell count is consistent with peritonitis. He reports it is his first episode. He was treated overnight with intraperitoneal vancomycin and gentamicin. His cultures are pending. His cell count will be repeated daily. His pain is improving. 3. Anemia related to chronic renal failure and severe iron deficiency. Patient reports he has been traveling, and he has missed his "last couple doses" of Aranesp and has not received any iron supplementation recently. Understandably, he wanted to avoid blood transfusion in view of antibody sensitization. I discussed with him we will give Venofer and Aranesp and transfuse 1 unit of packed red blood cells, as hemoglobin is severely low at 6.5. 4. Hypertension. Blood pressures are well controlled. No change is being made to the home regimen. 5. Moderate periumbilical hernia. It is reducible. General surgery has evaluated him. He will need to get this repaired after acute issues resolve. He has been putting it off for almost a year.
[2020-04-30] MEDS ORDERED: **hydrALAZINE HCL** 25 MG TAB PO SCH (21:00)
[2020-04-30] MEDS: [UNRECOGNIZED DRUG - OTHER] XX SCH (21:00)
[2020-05-01 05:41] LABS: APPEARANCE, BODY FLUID CLEAR (CLEAR); PERITONEAL FL COLOR PALE YELLOW (COLORLESS); SOURCE, BODY FLUID PERITONEAL
[2020-05-01] MEDS: PERCOCET 5MG/325MG TAB PO PRN (05:48)
[2020-05-01 06:00] VITALS: BP 142/83
[2020-05-01 06:22] LABS: HEMATOCRIT 24.8 % (42.0-52.0); MEAN CORPUSCULAR HEMOGLOBIN 30.5 pg (27.0-33.0); MEAN CORPUSCULAR HGB CONC 34.3 g/dl (32.0-36.5); MEAN CORPUSCULAR VOLUME 88.9 fl (80.0-96.0); PLATELET COUNT, AUTOMATED 249 10^3/uL (150-450); RED BLOOD COUNT 2.79 10^6/uL (4.30-6.10); WHITE BLOOD COUNT 6.1 10^3/uL (4.0-10.0)
[2020-05-01 06:28] LABS: HEMOGLOBIN 8.5 g/dl (13.5-17.5)
[2020-05-01 06:47] LABS: CREATININE FOR GFR 10.2 MG/DL (0.70-1.30); GLOMERULAR FILTRATION RATE 5.9 (>60); POTASSIUM SERUM 4.3 MEQ/L (3.5-5.1); VANCOMYCIN RANDOM 18.8 UG/ML
[2020-05-01] MEDS: (RENVELA) SEVELAMER **CARBONate** 800 MG TAB PO SCH ×3 (06:49→18:54)
[2020-05-01 08:08] LABS: HAPTOGLOBIN 431 mg/dL (23-355); TRANSFERRIN 135 mg/dL (177-329)
[2020-05-01] MEDS: cloNIDine 0.1MG TABLET PO SCH ×3 (09:00→20:30)
[2020-05-01] MEDS ORDERED: DARBEPOETIN 100 MCG/0.5 ML *NON-DIALYSIS* SYRINGE (J0881) SC SCH (09:00)
--- NOTE | 2020-05-01 09:33 | IPN ---
PROGRESS NOTE DATE: 05/01/2020 SUBJECTIVE: Tariq is seen [facility], he is feeling better, less abdominal pain. He had a repeat peritoneal wash and has decreasing white cells suggesting appropriate response to treatment. He did consent to blood transfusion so his hemoglobin is improved as well. He met with Dr. Cabezas [facility] and plans to transfer his nephrology care to her. PHYSICAL EXAMINATION: VITAL SIGNS: Blood pressure 142/83, pulse 84, respiratory rate 16, 95% O2 saturation. GENERAL APPEARANCE: He looks better and brighter, not so pale. HEENT: Unremarkable. LUNGS: Clear. HEART: Regular rate and rhythm. ABDOMEN: Soft, mildly tender diffusely but better than yesterday. LABORATORY DATA: Labs today: White count 6.l, hemoglobin 8.5, platelets 249,000, sodium 137, potassium 4.3, creatinine is 10.2. Iron studies confirmed anemia as well as chronic inflammation. ASSESSMENT AND PLAN: 1. Umbilical hernia which was reduced in the Emergency Room has not recurred. He has a surgeon in [place] that he has seen and has had conversations about having this surgically addressed. Would have to halt peritoneal dialysis, go on hemodialysis for about four weeks postop to allow wound healing and incorporation of the mesh, would need to find a way to thread the peritoneal catheter away from the mesh. Appreciate Surgery's input from ELKIN Quarles. 2. Peritonitis secondary to peritoneal dialysis, appears to be responding to treatments, appreciate Dr. Fallon Cabezas's input. Disposition will depend on his response to treatment and I will defer to Nephrology to let me know when they think he is ready to be discharged.
[2020-05-01] MEDS: LOSARTAN 50MG TABLET PO SCH (10:04)
[2020-05-01] MEDS: NIFEdipine 30 MG XL TAB PO SCH ×2 (10:04→20:31)
[2020-05-01] MEDS: CARVedilol 12.5 MG TAB PO SCH ×2 (10:05→20:30)
[2020-05-01] MEDS: GENTAMICIN SULFATE 0.1% OINT 15 GM TOP SCH (10:06)
[2020-05-01 14:00] VITALS: BP 133/78
[2020-05-01 20:00] VITALS: BP 159/90
[2020-05-01] MEDS ORDERED: HEPARIN SOD (PORCINE) 5000UNITS/ML 1ML VIAL/SYRINGE IP ONE (20:15)
[2020-05-01] MEDS: MIRALAX *UNIT DOSE* 17GM PACKET PO PRN (20:28)
[2020-05-01] MEDS ORDERED: NOVOLOG 100 UNIT/ML SQ PRN (23:30)
[2020-05-02 05:48] LABS: HEMOGLOBIN 7.8 g/dl (13.5-17.5); MEAN CORPUSCULAR HEMOGLOBIN 30.4 pg (27.0-33.0); MEAN CORPUSCULAR HGB CONC 33.9 g/dl (32.0-36.5); MEAN CORPUSCULAR VOLUME 89.5 fl (80.0-96.0); PLATELET COUNT, AUTOMATED 243 10^3/uL (150-450); RED BLOOD COUNT 2.57 10^6/uL (4.30-6.10); WHITE BLOOD COUNT 4.7 10^3/uL (4.0-10.0)
[2020-05-02 06:00] VITALS: BP 134/77
[2020-05-02 06:12] LABS: CALCIUM LEVEL 7.5 MG/DL (8.5-10.1); CREATININE FOR GFR 10.8 MG/DL (0.70-1.30); GLOMERULAR FILTRATION RATE 5.5 (>60); VANCOMYCIN RANDOM 17.4 UG/ML
[2020-05-02 06:45] LABS: APPEARANCE, BODY FLUID CLEAR (CLEAR); PERITONEAL FL COLOR PALE YELLOW (COLORLESS); SOURCE, BODY FLUID PERITONEAL
[2020-05-02] MEDS: (RENVELA) SEVELAMER **CARBONate** 800 MG TAB PO SCH ×3 (07:31→17:41)
--- NOTE | 2020-05-02 08:45 | IPN ---
NEPHROLOGY PROGRESS NOTE DATE: 05/01/2020 SUBJECTIVE: The patient was seen and examined this morning at the bedside. He reports his abdominal pain is much better. He is no longer having drain pain. His hemoglobin has improved. He was transfused one unit packed red blood cells yesterday. His peritoneal cell count has normalized and his Vancomycin random level remains therapeutic. OBJECTIVE: PHYSICAL EXAMINATION: VITAL SIGNS: Temperature 97.9, pulse 79, respiratory rate 18, blood pressure 133/78, saturating 98% on room air. INTAKE AND OUTPUT: Reviewed. Weight in the bed scale today is 76.1 kg. GENERAL APPEARANCE: This patient is seen awake, alert, oriented, comfortable, in bed in no apparent distress. HEENT: The extraocular muscles are intact. Tongue is moist. NECK: Supple. LUNGS: He is comfortable on room air. Jugular veins are not elevated. HEART: Regular, S1, S2. There is no peripheral edema. Peripheral pulses are palpable. LUNGS: Clear to auscultation bilaterally. No crackles or rales. ABDOMEN: Soft and the PD catheter exit site has a dressing. There is peritoneal dialysis fluid in place. EXTREMITIES: Negative for clubbing, cyanosis, or edema. There is a left arm fistula which is patent with thrill and bruit. SKIN: Some generalized pallor. LABORATORY STUDIES: Sodium 137, potassium 4.3, bicarbonate 32, hemoglobin 8.5. Peritoneal cell count today shows WBC 124 of which polymorphs are 42%. INPATIENT MEDICATIONS: The patient's medications were reviewed by myself. He is back on his sevelamer phosphorous binder. He got a dose of Aranesp today. His remainder of medications are unchanged as compared to yesterday. PROBLEMS: 1. Peritonitis associated with peritoneal dialysis his peritoneal cell count has improved substantially and is now within normal limits. His culture is still pending but did show gram positive cocci. There is no need to continue with intraperitoneal Gentamicin. His Vancomycin random level remains therapeutic. His peritoneal Vancomycin is typically re-dosed after 4 days and can be done through is outpatient peritoneal dialysis clinic, however date of re-dose will fall over the weekend and the patient also reports some trouble traveling to his clinic. I will likely re-dose his Vancomycin on Tuesday night (with one gram of Vancomycin) and the patient can be discharged over the weekend and follow up with his peritoneal dialysis clinic in [place] next week. I will update his peritoneal dialysis nurse prior to that. 2. End-stage renal disease, on peritoneal dialysis - continue with 5 daily exchanges, two liters volume each, all 2.5% dianeal. Volume status and electrolytes are acceptable. 3. Periumbilical hernia he will follow up with General Surgery outpatient for hernia repair. He does have a back AV fistula for a short term hemodialysis while his hernia is repaired. 4. Anemia related to chronic renal failure and severe iron deficiency he received Venofer and a dose of Aranesp and one unit of packed red blood cells. 5. Hypertension - continue current regimen. Blood pressures are well controlled.
[2020-05-02] MEDS: NIFEdipine 30 MG XL TAB PO SCH ×2 (09:00→21:47)
[2020-05-02] MEDS: CARVedilol 12.5 MG TAB PO SCH ×2 (09:00→21:47)
[2020-05-02] MEDS: cloNIDine 0.1MG TABLET PO SCH ×2 (09:00→21:46)
[2020-05-02] MEDS: LOSARTAN 50MG TABLET PO SCH (09:00)
[2020-05-02] MEDS: GENTAMICIN SULFATE 0.1% OINT 15 GM TOP SCH (09:00)
--- NOTE | 2020-05-02 09:01 | IPN ---
PROGRESS NOTE DATE: 05/02/2020 SUBJECTIVE: Tariq is seen [facility]. He seems to be progressing. He says his peritoneal fluid is clear with less fibrin, less abdominal pain. His appetite is improved. His hernia is not bothering him. OBJECTIVE: PHYSICAL EXAMINATION: VITAL SIGNS: Stable, afebrile. LUNGS: Clear. HEART: Regular rhythm. ABDOMEN: Soft, felt less tender. Local hernia is reduced. LABORATORY STUDIES: Hemoglobin 7.8, potassium is 4.0, creatinine 10.8. Yesterday his white count in his peritoneal fluid was down to 84. IMPRESSION: 1. Peritonitis secondary to peritoneal dialysis catheter and peritoneal dialysis - continue his antibiotic therapy. I will be following Nephrology's feed as far as duration of therapy and when he is stable for discharge. 2. Umbilical hernia this is reduced. On his phone and he has an appointment to see a surgeon as an outpatient. 3. Hypertension - blood pressure is well controlled. 4. Diabetes he is on an insulin pump with good control of his blood sugars.
[2020-05-02] MEDS: HumaLOG INSULIN (NovoLOG) PER UNIT SC SCH ×2 (12:17→17:30)
--- NOTE | 2020-05-02 12:31 | IPN ---
PROGRESS NOTE DATE: 05/02/2020 SUBJECTIVE: The patient is seen and examined this morning at the bedside. The nurse called me last night when the patient had an episode of vomiting. The patient tells me this morning that that is fairly usual for him and he has been told that he likely has diabetic gastroparesis. He reports he has minimal discomfort with filling and draining and manual exchanges. He did have fibrin with his drainage overnight and received heparin with an overnight exchange and the fibrin cleared this morning. Hemoglobin is down to 7.8 today, but the patient declines any further blood transfusion and I discussed discharge plans with him. OBJECTIVE: Temperature 97.0, pulse 79, respiratory rate 20, blood pressure 134/77, saturating 97% on room air. Intake and output yesterday was recorded, net-negative 2 liters. Weight in the bed scale today is 83.7 kg. General: The patient is seen awake, alert, oriented, comfortable in no apparent distress. Tongue is moist. Neck is supple. Jugular veins are not elevated. Heart sounds are regular, S1, S2. There is no peripheral edema. Peripheral pulses are palpable. Lungs are clear to auscultation bilaterally. No crackles, rales or rhonchi. Abdomen is soft. There is a periumbilical hernia. The PD catheter exit site has a dressing. There is PD fluid in situ. Extremities are negative for cyanosis, clubbing or edema. There is a left arm fistula with thrill and bruit. Skin has some generalized pallor. Neurologic: He is alert and oriented x3. No focal deficit. LABORATORY: Today's laboratory study shows white count 4.7, hemoglobin 7.8, platelets 243. Sodium 139, potassium 4.0. His peritoneal fluid culture grew Staphylococcus epidermitis sensitive to vancomycin. His vancomycin random level this morning is 17. INPATIENT MEDICATIONS: Reviewed by myself. He received a dose of Aranesp yesterday. He received 500 units of heparin with his peritoneal dialysis exchange overnight. His remainder of medications are unchanged as compared to yesterday. PROBLEMS: 1. Staphylococcus epidermitis peritonitis. His peritoneal cell count has normalized. His WBCs are less than 100. His culture grew Staphylococcus epidermitis sensitive to vancomycin. I was unable to arrange for him to brick picker antibiotics through the local [facility] clinic and his clinic in [place] will not have antibiotics for him to brick picker until Tuesday. I will re-dose him with intraperitoneal vancomycin tonight and we will plan for discharge on Tuesday and the patient will complete his outpatient antibiotics through his [place] clinic and I have discussed with his PD nurse. 2. End-stage renal disease on peritoneal dialysis. Continue with 5 daily manual exchanges, all 2.5% Dianeal. His volume status and electrolytes are acceptable. 3. Periumbilical hernia. He will follow up with general surgery outpatient hernia repair. 4. Episode of nausea and vomiting, probably related to diabetic gastroparesis. The patient reports that this is a chronic issue for him. 5. Anemia related to chronic renal failure and severe iron deficiency. He received Venofer and a dose of Aranesp along with 1 unit packed red blood cells (PRBCs). Hemoglobin today is 7.8. The patient declines further transfusion in view of ongoing transplant evaluation. 6. Hypertension. Blood pressures are well controlled. Continue current regimen. DISPOSITION: Plan is for discharge on Tuesday after he receives a dose of intraperitoneal vancomycin on Tuesday night and further outpatient antibiotics have been arranged through his [place] clinic.
[2020-05-02 14:22] VITALS: BP 128/78
[2020-05-02] MEDS ORDERED: HumaLOG INSULIN (NovoLOG) PER UNIT SC SCH (21:00)
[2020-05-02] MEDS: MIRALAX *UNIT DOSE* 17GM PACKET PO PRN (21:48)
[2020-05-02 22:00] VITALS: BP 161/91
[2020-05-02] MEDS ORDERED: VANCOMYCIN 1000MG/20ML VIAL IP ONE (22:00)
[2020-05-03] MEDS: [UNRECOGNIZED DRUG - OTHER] XX SCH ×2 (00:29→03:57)
[2020-05-03 06:00] VITALS: BP 163/84
[2020-05-03 06:25] LABS: HEMATOCRIT 26.1 % (42.0-52.0); HEMOGLOBIN 8.7 g/dl (13.5-17.5); MEAN CORPUSCULAR HEMOGLOBIN 30.1 pg (27.0-33.0); MEAN CORPUSCULAR HGB CONC 33.3 g/dl (32.0-36.5); MEAN CORPUSCULAR VOLUME 90.3 fl (80.0-96.0); PLATELET COUNT, AUTOMATED 253 10^3/uL (150-450); RED BLOOD COUNT 2.89 10^6/uL (4.30-6.10); WHITE BLOOD COUNT 4.3 10^3/uL (4.0-10.0)
[2020-05-03 06:50] LABS: CALCIUM LEVEL 8.2 MG/DL (8.5-10.1); CREATININE FOR GFR 11.4 MG/DL (0.70-1.30); GLOMERULAR FILTRATION RATE 5.2 (>60); POTASSIUM SERUM 3.5 MEQ/L (3.5-5.1)
[2020-05-03] MEDS: (RENVELA) SEVELAMER **CARBONate** 800 MG TAB PO SCH ×4 (07:33→18:23)
[2020-05-03] MEDS: NIFEdipine 30 MG XL TAB PO SCH ×2 (08:31→21:12)
[2020-05-03] MEDS: LOSARTAN 50MG TABLET PO SCH (08:31)
[2020-05-03] MEDS: CARVedilol 12.5 MG TAB PO SCH ×2 (08:31→21:12)
[2020-05-03] MEDS: cloNIDine 0.1MG TABLET PO SCH ×2 (08:31→21:11)
[2020-05-03] MEDS: GENTAMICIN SULFATE 0.1% OINT 15 GM TOP SCH (08:32)
--- NOTE | 2020-05-03 08:52 | IPN ---
PROGRESS NOTE DATE: 05/03/2020 SUBJECTIVE: Tariq is up and around in his room. He looks quite well. No fever. No chills. His peritoneal fluid analysis from today is still pending. OBJECTIVE: VITAL SIGNS: Afebrile. Vital signs stable. LUNGS: Clear. HEART: Regular rate and rhythm. ABDOMEN: Soft, nontender. Umbilical hernia is reduced. EXTREMITIES: Trace peripheral edema. LABORATORY DATA: CBC and CMP are both stable. Potassium is 3.5. IMPRESSION: 1. Peritonitis from peritoneal dialysis. Continue current regimen. I appreciate Nephrology's help, Staph epidermidis grew out on a culture. I have reviewed Nephrology's, it looks like they think he can be discharged today if his peritoneal fluid shows continued trend for improvement with outpatient antibiotics through [facility] has been arranged by Dr. Cabezas through the patient's peritoneal dialysis nurse. 2. Periumbilical hernia, follow-up with General Surgery which he already has as an outpatient. 3. Anemia from chronic kidney disease with iron deficiency. He has received Venofer, Aranesp and 1 unit of packed red blood cells. Declines further transfusion in view of ongoing transplant evaluation. 4. Hypertension, blood pressure is adequately controlled for now.
[2020-05-03 09:07] LABS: APPEARANCE, BODY FLUID CLEAR (CLEAR); PERITONEAL FL COLOR COLORLESS (COLORLESS); SOURCE, BODY FLUID PERITONEAL
[2020-05-03] MEDS ORDERED: HEPARIN SOD (PORCINE) 5000UNITS/ML 1ML VIAL/SYRINGE PD ONE (10:00)
--- NOTE | 2020-05-03 13:35 | IPN ---
PROGRESS NOTE DATE: 05/03/2020 Mr. Crane is seen this morning on his bedside. He is lying in his bed and denies any complaints at present. Nursing staff called me earlier and reported fibrin in the peritoneal dialysis fluid. He is being treated for peritonitis and did receive vancomycin intraperitoneally last night. This morning peritoneal fluid white blood cell count is down to 40. PHYSICAL EXAMINATION: Patient is awake and alert and without any acute distress. Temperature 97.8 degrees Fahrenheit, heart rate 83 per minute, respiratory rate 16 per minute, blood pressure 163/84 mmHg, and oxygen saturation 96% on room air. Head is atraumatic. Neck supple and without jugular venous distention (JVD) or thyroid enlargement. Heart sounds are regular and lungs clear to auscultation. Abdomen soft, distended with peritoneal dialysis fluid. Large umbilical hernia is present. Peritoneal dialysis catheter is intact. Extremities without any cyanosis or clubbing. Neurologically, he is awake, alert, and without a focal deficit. Peritoneal dialysis cell count is down to 40, and rest of his labs are appropriate. Sodium is 137, potassium 3.5, BUN 69, and creatinine 11.4. Glucose 104 and calcium 8.2. WBC count 4.3, hemoglobin 8.7, and hematocrit 26.1. PROBLEMS: 1. Peritonitis. Patient is being treated with intraperitoneal vancomycin. He was given a vancomycin dose last evening and will require another dose as an outpatient in about 5 days. This has already been arranged at his outpatient dialysis clinic. 2. End-stage renal disease. Patient continues with peritoneal dialysis and should resume his home prescription when he gets home tonight. 3. Anemia. His anemia improved following transfusion, and at present it is stable. He will continue with chronic anemia management with his primary computational mathematician as an outpatient. 4. Umbilical hernia. Patient has a large hernia, which he reports that he has intention to get surgery done at some point in future. I encouraged him to not ignore it, as his hernia is significant and likely to get worse. DISPOSITION: From a renal standpoint, patient can be discharged to home, and he will followup with his primary computational mathematician as an outpatient.
[2020-05-03 14:00] VITALS: BP 154/89
[2020-05-03] MEDS: ONDANSETRON 4MG/2ML VIAL IV PRN (17:04)
[2020-05-03 22:00] VITALS: BP 154/80
[2020-05-04 06:00] VITALS: BP 150/89
[2020-05-04] MEDS: (RENVELA) SEVELAMER **CARBONate** 800 MG TAB PO SCH (07:20)
[2020-05-04] MEDS: MIRALAX *UNIT DOSE* 17GM PACKET PO PRN (07:24)
[2020-05-04 08:05] LABS: HEMATOCRIT 27.6 % (42.0-52.0); HEMOGLOBIN 9.2 g/dl (13.5-17.5); MEAN CORPUSCULAR HGB CONC 33.3 g/dl (32.0-36.5); MEAN CORPUSCULAR VOLUME 89.9 fl (80.0-96.0); PLATELET COUNT, AUTOMATED 284 10^3/uL (150-450); RED BLOOD COUNT 3.07 10^6/uL (4.30-6.10)
[2020-05-04] MEDS: ONDANSETRON 4MG/2ML VIAL IV PRN (08:12)
[2020-05-04 08:25] LABS: CALCIUM LEVEL 8.2 MG/DL (8.5-10.1); CREATININE FOR GFR 11.7 MG/DL (0.70-1.30); POTASSIUM SERUM 3.5 MEQ/L (3.5-5.1)
[2020-05-04 09:14] VITALS: BP 150/89
[2020-05-04] MEDS: LOSARTAN 50MG TABLET PO SCH (09:14)
[2020-05-04] MEDS: CARVedilol 12.5 MG TAB PO SCH (09:14)
[2020-05-04] MEDS: NIFEdipine 30 MG XL TAB PO SCH (09:14)
[2020-05-04] MEDS: cloNIDine 0.1MG TABLET PO SCH (09:15)
[2020-05-04] MEDS: GENTAMICIN SULFATE 0.1% OINT 15 GM TOP SCH (09:16)
--- NOTE | 2020-05-04 10:58 | DSES ---
DISCHARGE SUMMARY DATE OF ADMISSION: 04/30/2020 DATE OF DISCHARGE: 05/04/2020 CONSULTANTS: 1. Dr. Jazlyn Cabezas, nephrology 2. Dr. Mendez, general surgery HISTORY OF PRESENT ILLNESS: Tariq Crane is a 44-year-old with end-stage renal disease on peritoneal dialysis for the past year and a half, who presented with abdominal discomfort. He had an umbilical hernia that initially caused the abdominal pain, presented to the Emergency Room and was found to have peritonitis secondary to peritoneal dialysis catheter and was admitted for treatment of this. The hernia itself was reduced in the Emergency Room and did not present further problems during this hospitalization. HOSPITAL COURSE: The patient was admitted to a medical bed. His peritonitis was managed by nephrology with intraperitoneal Vancomycin; last dose was on 05/02/2020 and his next dose is scheduled for about 5 days and can be arranged by his outpatient clinic. Nephrology has called and discussed this with the peritoneal dialysis nurse that the patient's uses. He was anemic, initially declined transfusions. He did receive a unit of blood as well as an iron infusion. DISCHARGE PHYSICAL EXAMINATION: GENERAL: On the day of discharge, he is resting comfortable. VITAL SIGNS: His vital signs are stable; blood pressure 150/89. LUNGS: Clear. HEART: Regular rhythm, 1/6 systolic ejection murmur. ABDOMEN: Soft, nontender. Hernia is reduced. DISCHARGE LABORATORY DATA: White count 9, hemoglobin 9.2, platelets 284,000. Sodium 141, potassium 3.5, creatinine 1.7 today. Iron studies were consistent with anemia of chronic kidney disease. High ferritin 1260, low TIBC 203. He also was iron deficient with a percent saturation of 6.9. Someone did a haptoglobin, it was high. His reticulocyte hemoglobin equivalent was normal at 32. DISPOSITION: He is discharged home in improved and stable condition. He will follow-up with his balloon pilot as previously scheduled. He also has a general surgeon that he already has an appointment with for definitive treatment of the hernia. His activity is as tolerated. He is on a renal diet. He will continue his current dialysis schedule. Next dose of intraperitoneal Vancomycin is due on 05/07/20. DISCHARGE MEDICINES: 1. Carvedilol 25 mg b.i.d. 2. Clonidine 0.1 mg b.i.d. 3. Gentamicin topically over port after showering. 4. Hydralazine 25 mg q.h.s. if systolic blood pressure is greater than 190. 5. Sliding scale of insulin via insulin pump. 6. Losartan 100 mg daily. 7. Nifedipine ER 90 mg daily. 8. MiraLax as needed. 9. Sevelamer 2,400 mg b.i.d. with meals. 10.He uses topical Clobetasol p.r.n. for rash or itching. There are no pending labs. ADDENDUM: Peritoneal dialysis fluid grew out a moderate amount of Staph epidermidis sensitive to Vancomycin. Peritoneal dialysis fluid showed decrease in white cells, 3,500 on admission, 2,500 the next day and then decreasing down to 40 yesterday.
== END 2020-05-04 11:12 | disposition home or self-care (01) | DRG 919 ==
LOC: M ED 21:19 → M ED INP 04-30 00:53 → ENRESERV 04-30 01:26 → M MSPAV 04-30 02:30
PROVIDERS: ADMIT General Practice; ATTEND Family Medicine
PROC: 30233N1 Transfusion of Nonautologous Red Blood Cells into Peripheral Vein, Percutaneous Approach (ICD-10-PCS; principal; 2020-04-30)
DX: T85.71XA Infection and inflammatory reaction due to peritoneal dialysis catheter, initial encounter (principal); N18.6 End stage renal disease; K65.0 Generalized (acute) peritonitis; N25.81 Secondary hyperparathyroidism of renal origin; I12.0 Hypertensive chronic kidney disease with stage 5 chronic kidney disease or end stage renal disease; E11.22 Type 2 diabetes mellitus with diabetic chronic kidney disease; Z79.899 Other long term (current) drug therapy; D63.1 Anemia in chronic kidney disease; K42.9 Umbilical hernia without obstruction or gangrene; Y83.1 Surgical operation with implant of artificial internal device as the cause of abnormal reaction of the patient, or of later complication, without mention of misadventure at the time of the procedure

== ENCOUNTER 2020-05-14 15:21 | Emergency (ER) | payer OTHER ==
[~2020-05-14] VITALS: Ht 172.7 cm; Wt 80.9 kg
[~2020-05-14 15:21] MED LIST changes: +CLOB0.0548 TOP; -HumaLOG INSULIN (NovoLOG) PER UNIT SC SCH; +INSUH10VL SC; +MIRA1POW3 PO; +NIFE90TA20 PO
[2020-05-14] MEDS ORDERED: MORPHINE 4 MG/ML 1ML VIAL/SYRINGE (J2270) IV PRN (16:10)
[2020-05-14] MEDS ORDERED: ONDANSETRON 4MG/2ML VIAL IV ONE (16:10)
[2020-05-14 16:41] LABS: BASO # 0.1 10^3/uL (0.0-0.2); BASO % 0.7 % (0.0-1.0); EOS # 0.2 10^3/uL (0.0-0.5); EOS % 2.8 % (0.0-3.0); HEMATOCRIT 31.7 % (42.0-52.0); HEMOGLOBIN 10.3 g/dl (13.5-17.5); LYMPH # 0.8 10^3/uL (1.5-5.0); LYMPH % 10.6 % (24.0-44.0); MEAN CORPUSCULAR HGB CONC 32.5 g/dl (32.0-36.5); MEAN CORPUSCULAR VOLUME 92.4 fl (80.0-96.0); MONO # 0.5 10^3/uL (0.0-0.8); MONO % 6.9 % (2.0-8.0); NEUTROPHILS # 5.7 10^3/uL (1.5-8.5); NEUTROPHILS % 78.6 % (36.0-66.0); PLATELET COUNT, AUTOMATED 211 10^3/uL (150-450); RED BLOOD COUNT 3.43 10^6/uL (4.30-6.10); WHITE BLOOD COUNT 7.2 10^3/uL (4.0-10.0)
[2020-05-14 17:08] LABS: ALBUMIN 2.4 GM/DL (3.2-5.2); ALT/SGPT 24 U/L (12-78); BILIRUBIN,DIRECT < 0.1 MG/DL (0.0-0.2); BILIRUBIN,TOTAL 0.4 MG/DL (0.2-1.0); LIPASE 248 U/L (73-393); TOTAL PROTEIN 5.6 GM/DL (6.4-8.2)
[2020-05-14 17:59] LABS: APPEARANCE, BODY FLUID CLEAR (CLEAR); PERITONEAL FL COLOR PALE YELLOW (COLORLESS); SOURCE, BODY FLUID PERITONEAL; SPEC. GRAVITY BODY FLUIDS 1.013 (NOT ESTABLISHED)
[2020-05-14 18:13] LABS: RSV AMPLIFICATION NEGATIVE (NEGATIVE)
[2020-05-14 18:16] LABS: SOURCE, BODY FLUID ALBUMIN P.DIALYSIS; SOURCE, BODY FLUID GLUCOSE P.DIALYSIS; SOURCE, BODY FLUID TOT PROTEIN ASCITES; TOTAL PROTEIN, BODY FLUID 1.3 G/DL (NOT ESTABLISHED)
[2020-05-14 18:45] VITALS: BP 210/109
--- NOTE | 2020-05-14 18:51 | REPVR ---
PROCEDURE INFORMATION: Exam: CT Abdomen And Pelvis Without Contrast Exam date and time: 05/14/2020 6:36 PM Age: 44 years old Clinical indication: Abdominal pain; Prior surgery; Surgery date: 6+ months; Additional info: Deisy TECHNIQUE: Imaging protocol: Computed tomography of the abdomen and pelvis without contrast. Radiation optimization: All CT scans at this facility use at least one of these dose optimization techniques: automated exposure control; mA and/or kV adjustment per patient size (includes targeted exams where dose is matched to clinical indication); or iterative reconstruction. COMPARISON: CT ABD PELVIS W/O CONTRAST 04/29/2020 10:24 PM FINDINGS: Tubes, catheters and devices: Peritoneal dialysis catheter demonstrated in the peritoneal cavity with the distal portion of the catheter coiled in the pelvis. Lungs: Bibasilar atelectasis. Liver: Normal. No mass. Gallbladder and bile ducts: Normal. No calcified stones. No ductal dilation. Pancreas: There is peripancreatic inflammatory stranding and fluid, consistent with acute pancreatitis. Spleen: Normal. No splenomegaly. Adrenal glands: Normal. No mass. Kidneys and ureters: Normal. No hydronephrosis. Stomach and bowel: There is increased feces throughout the colon consistent with constipation. Appendix: No evidence of appendicitis. Intraperitoneal space: There is a small amount of free intraperitoneal fluid present. Vasculature: Extensive vascular calcifications in calcifications in the vas deferens consistent with history of diabetes mellitus. The aortoiliac vessels demonstrate mild atherosclerotic calcification. Lymph nodes: Unremarkable. No enlarged lymph nodes. Urinary bladder: Thick-walled bladder is partially collapsed. Reproductive: Unremarkable as visualized. Bones/joints: Unremarkable. No acute fracture. Soft tissues: Large umbilical hernia containing herniated fat and fluid. There is mild soft tissue edema demonstrated in the abdominal wall, flanks and buttock regions consistent with anasarca. IMPRESSION: 1. There is increased feces throughout the colon consistent with constipation. 2. There is a small amount of free intraperitoneal fluid present. 3. Extensive vascular calcifications in calcifications in the vas deferens consistent with history of diabetes mellitus. 4. There is peripancreatic inflammatory stranding and fluid, consistent with acute pancreatitis. 5. Large umbilical hernia containing herniated fat and fluid. 6. Anasarca. Electronically signed by: Kris Avalos On 05/14/2020 18:51:13 PM
--- NOTE | 2020-05-15 01:08 | ECGEPIP ---
[facility] - ED Test Date: 2020-05-14 Pat Name: KATIE CORDERO Department: Room: - Gender: Male Director Of Materials Management: Sandy CASON : 1975 Requested By: Katie Pham Order Number: [id number] Reading MD: Juan Luis Cross Measurements Intervals [place] Rate: 72 P: 67 MD: 184 QRS: 0 QRSD: 88 T: 27 QT: 412 QTc: 451 Interpretive Statements Normal sinus rhythm POOR R WAVE PROGRESSION NONSPECIFIC T WAVE ABNORMALITY(S) SIMILAR TO 04/29/20 Electronically Signed on 05-15-2020 1:08:32 EDT by Juan Luis Cross
== END 2020-05-14 19:44 | disposition home or self-care (01) ==
LOC: EDBD 15:21 → M ED 15:21
DX: K42.9 Umbilical hernia without obstruction or gangrene (principal); E11.9 Type 2 diabetes mellitus without complications; I12.0 Hypertensive chronic kidney disease with stage 5 chronic kidney disease or end stage renal disease; N18.6 End stage renal disease; Z99.2 Dependence on renal dialysis; Z79.899 Other long term (current) drug therapy; Z79.4 Long term (current) use of insulin
CPT/HCPCS: 74176; 80047; 80076; 82042; 82945; 83690; 84157; 84315; 85025; 87040; 87070; 87075; 87102; 87116; 87205; 87206; 87631; 89051; 93005; 96374; 96375; 99284; J2270; J2405

== ENCOUNTER 2020-05-17 17:22 | Emergency (ER) | payer OTHER, MEDICAID ==
[~2020-05-17] VITALS: Ht 172.7 cm; Wt 84.3 kg
[2020-05-17 18:50] LABS: BASO % 0.7 % (0.0-1.0); EOS # 0.2 10^3/uL (0.0-0.5); EOS % 2.6 % (0.0-3.0); HEMATOCRIT 28.4 % (42.0-52.0); HEMOGLOBIN 9.2 g/dl (13.5-17.5); LYMPH # 0.8 10^3/uL (1.5-5.0); LYMPH % 13.3 % (24.0-44.0); MEAN CORPUSCULAR HEMOGLOBIN 30.2 pg (27.0-33.0); MEAN CORPUSCULAR HGB CONC 32.4 g/dl (32.0-36.5); MEAN CORPUSCULAR VOLUME 93.1 fl (80.0-96.0); MONO # 0.5 10^3/uL (0.0-0.8); MONO % 8.1 % (2.0-8.0); NEUTROPHILS # 4.6 10^3/uL (1.5-8.5); NEUTROPHILS % 74.8 % (36.0-66.0); PLATELET COUNT, AUTOMATED 191 10^3/uL (150-450); RED BLOOD COUNT 3.05 10^6/uL (4.30-6.10); WHITE BLOOD COUNT 6.1 10^3/uL (4.0-10.0)
[2020-05-17 19:02] LABS: SPEC. GRAVITY BODY FLUIDS 1.008 (NOT ESTABLISHED)
[2020-05-17 19:08] LABS: APPEARANCE, BODY FLUID CLEAR (CLEAR); PERITONEAL FL COLOR COLORLESS (COLORLESS); SOURCE, BODY FLUID PERITONEAL
[2020-05-17 19:19] LABS: CALCIUM LEVEL 7.8 MG/DL (8.5-10.1); GLOMERULAR FILTRATION RATE 4.2 (>60); POTASSIUM SERUM 5.3 MEQ/L (3.5-5.1)
[2020-05-17 19:19] LABS: SOURCE, BODY FLUID ALBUMIN ASCITES; SOURCE, BODY FLUID GLUCOSE PERITONEAL; SOURCE, BODY FLUID TOT PROTEIN ASCITES; TOTAL PROTEIN, BODY FLUID 0.2 G/DL (NOT ESTABLISHED)
[2020-05-17 19:20] LABS: CREATININE FOR GFR 13.7 MG/DL (0.70-1.30)
[2020-05-17 19:40] VITALS: BP 126/78
== END 2020-05-17 19:42 | disposition home or self-care (01) ==
LOC: M ED 17:22
DX: N18.6 End stage renal disease (principal); E11.9 Type 2 diabetes mellitus without complications; Z99.2 Dependence on renal dialysis; Z79.4 Long term (current) use of insulin; Z79.899 Other long term (current) drug therapy

== ENCOUNTER → 2020-07-22 | Outpatient (CLI) | payer MEDICARE, OTHER ==
[~2020-07-22] MED LIST changes: +CINA30TA4 PO; -NIFE1POW PO; +ROCA0.5C PO; +[UNRECOGNIZED DRUG - CODE] PO; +[UNRECOGNIZED DRUG - REMARK] PO
--- NOTE | 2020-07-22 20:45 | ECGEPIP ---
[facility] Test Date: 2020-07-22 Pat Name: KATIE CORDERO Department: Room: - Gender: Male Er Medical Technician: ELLIE : 1975 Requested By: Santhosh Parikh Order Number: [id number] Reading MD: Saqib Whittington Measurements Intervals [place] Rate: 64 P: 25 NV: 198 QRS: 5 QRSD: 96 T: 32 QT: 426 QTc: 439 Interpretive Statements Normal sinus rhythm Delayed anterior R wave progression No significant change when compared to prior tracing of 05/14/2020 Electronically Signed on 07-22-2020 20:45:04 EDT by Saqib Whittington
== END ==
LOC: M EKG 06:16
PROVIDERS: ATTEND Anesthesiology
DX: Z01.818 Encounter for other preprocedural examination (principal); E11.9 Type 2 diabetes mellitus without complications

== ENCOUNTER → 2020-07-26 | Outpatient (CLI) | payer OTHER, MEDICARE | LOC: M LABSMTC 10:13 | PROVIDERS: ATTEND Anesthesiology | DX: Z01.812 Encounter for preprocedural laboratory examination (principal); Z20.822 Contact with and (suspected) exposure to COVID-19 ==

== ENCOUNTER → 2020-10-01 | Outpatient (CLI) | payer OTHER, MEDICARE ==
[~2020-10-01] MED LIST changes: +OMEP1CAP73 PO
== END ==
LOC: M LABSMTC 10:01
PROVIDERS: ATTEND Anesthesiology
DX: Z01.812 Encounter for preprocedural laboratory examination (principal); Z20.822 Contact with and (suspected) exposure to COVID-19

== ENCOUNTER 2020-10-04 00:20 | Inpatient (IN) | payer MEDICARE, OTHER ==
[~2020-10-04] VITALS: Ht 172.7 cm; Wt 85.8 kg
[2020-10-04] MEDS ORDERED: niCARdipine IV 40 MG in IV 1 EA IV SCH ×2 (01:15→04:10)
[2020-10-04 01:33] LABS: BASO % 0.5 % (0.0-1.0); EOS # 0.2 10^3/uL (0.0-0.5); EOS % 4.3 % (0.0-3.0); HEMATOCRIT 27.6 % (42.0-52.0); HEMOGLOBIN 9.5 g/dl (13.5-17.5); LYMPH # 1.1 10^3/uL (1.5-5.0); MEAN CORPUSCULAR HEMOGLOBIN 31.7 pg (27.0-33.0); MEAN CORPUSCULAR HGB CONC 34.4 g/dl (32.0-36.5); MONO # 0.6 10^3/uL (0.0-0.8); MONO % 10.1 % (2.0-8.0); NEUTROPHILS # 3.7 10^3/uL (1.5-8.5); NEUTROPHILS % 65.7 % (36.0-66.0); PLATELET COUNT, AUTOMATED 120 10^3/uL (150-450); WHITE BLOOD COUNT 5.6 10^3/uL (4.0-10.0)
[2020-10-04 02:12] LABS: BLOOD UREA NITROGEN 74 MG/DL (7-18); CALCIUM LEVEL 8.3 MG/DL (8.5-10.1); CARBON DIOXIDE LEVEL 30 MEQ/L (21-32); CHLORIDE LEVEL 102 MEQ/L (98-107); CK-MB VALUE MASS 3.7 NG/ML (<3.6); CPK CREATINE PHOSPHOKINASE 497 U/L (39-308); GLOMERULAR FILTRATION RATE 4.2 (>60); GLUCOSE, FASTING 161 MG/DL (70-100); MB/CK RELATIVE INDEX 0.74 (< OR =4); POTASSIUM SERUM 3.3 MEQ/L (3.5-5.1); SODIUM LEVEL 142 MEQ/L (136-145); TROPONIN I < 0.02 NG/ML (< 0.10)
[2020-10-04] MEDS ORDERED: VELP5CHW PO (02:49)
[2020-10-04] MEDS ORDERED: HOME MED LIST COMPLETE! XX SCH (02:50)
--- NOTE | 2020-10-04 02:54 | REPVR ---
PROCEDURE INFORMATION: Exam: XR Chest Exam date and time: 10/04/20 (1:04am) Age: 45 years old Clinical indication: Chest pain TECHNIQUE: Imaging protocol: Portable CXR Views: 1 view COMPARISON: Portable CXR of 04/26/20 FINDINGS: Lungs: Unremarkable. No consolidation. Pleural spaces: Unremarkable. No pleural effusions. No pneumothorax. Heart/Mediastinum: Unremarkable. No cardiomegaly. Bones/joints: Unremarkable. IMPRESSION: No acute findings. Lung mallory remain clear. Electronically signed by: Lashell Petersen On 10/04/2020 02:53:53 AM
[2020-10-04 03:28] LABS: RSV AMPLIFICATION NEGATIVE (NEGATIVE)
--- NOTE | 2020-10-04 03:42 | HPEPDOC ---
[facility] Medical History & Physical Date of Admission Oct 04, 2020 Date of Service: Oct 04, 2020 History and Physical CHIEF COMPLAINT: hypertensive urgency HISTORY OF PRESENT ILLNESS: 45 yo M with a PMHx of HTN, DM2, ESRD on PD, anemia, peritonitis, umbilical hernia, presented to ER after he found his SBP> 220 at home. He felt some warmth on the face and mild headache. He took some clonidine at home, but it did not improve his BP. He states good compliance with medications and PD. He also complains of slightly worsened lower extremity edema. He denies chest pain, palpitations, n/v/d, subjective fevers, and chills. Found to have BP of 234/112 on arrival to ER. Started on nicardipine infusion. Will be admitted to ICU for titration of nicardipine drip. PAST MEDICAL HISTORY: HTN DM2 ESRD on PD Umbilical hernia peritonitis PAST SURGICAL HISTORY: L arm fistula PD catheter insertion SOCIAL HISTORY: non smoker non drinker no illicit drug FAMILY HISTORY: Father COPD mother with bone disease, pacemaker, low blood pressure ALLERGIES: Please see below. REVIEW OF SYSTEMS: 10 point ROS conducted, relevant findings are noted in the HPI HOME MEDICATIONS: Please see below. PHYSICAL EXAMINATION: VITAL SIGNS: please see below General: NAD, comfortable HEENT: PERRLA, EOMI, sclerae clear Neck: supple, normal ROM, no JVD Respiratory: lungs CTAB, no wheeze, no rales, no crackles CVS: RRR, normal S1, S2, no murmurs Abdo: Umbilical hernia, soft, no overlying skin changes. No pain to palpation. Extremities: no edema, pulses 2+ MSK: no joint deformities, normal ROM Neuro: no focal neuro deficits, moving all 4 extremities, CN2-12 intact. Strength 5/5 in all 4 extremities. No nystagmus. Psych: calm, cooperative, AAO x 3 LABORATORY DATA: See below. IMAGING: CXR (10/04/20): IMPRESSION: No acute findings. Lung mallory remain clear. MICROBIOLOGY: Please see below. ASSESSMENT: 45 yo M with a PMHx of HTN, DM2, ESRD on PD, anemia, peritonitis, umbilical hernia, presented to ER after he found his SBP> 220 at home. He felt some warmth on the face and mild headache. He took some clonidine at home, but it did not improve his BP. He states good compliance with medications and PD. He also complains of slightly worsened lower extremity edema. He denies chest pain, palpitations, n/v/d, subjective fevers, and chills. Found to have BP of 234/112 on arrival to ER. Started on nicardipine infusion. Will be admitted to ICU for titration of nicardipine drip. . PLAN: #Hypertensive urgency - SBP > 230 on arrival. - started on nicardipine drip - admit to ICU for titration - home regimen: carvedilol 25 mg BID. Clonidine 0.1 mg BID. Hydralazine 25 mg PO qhs. Losartan 100 mg PO daily. Nifedipine 90 mg PO BID #ESRD on PD - nephrology consult placed #Anemia - secondary to ESRD - Hgb 9.5, appears to be at baseline #DM2 - ISS and FSBS AC and HS - hypoglycemic precautions #Umbilical hernia - was planned for repair by Dr. Mendez on 10/06/20. Dispo: pending clinical improvement. Vital Signs Vital Signs Date Time Temp Pulse Resp B/P (MAP) Pulse Ox O2 Delivery O2 Flow Rate FiO2 10/04/20 03:20 82 99 10/04/20 03:15 183/91 (121) 10/04/20 02:15 18 10/04/20 00:20 98.0 Room Air Laboratory Data Labs 24H Laboratory Tests 2 10/04/20 01:17: Immature Granulocyte % (Auto) 0.4, Neutrophils (%) (Auto) 65.7, Lymphocytes (%) (Auto) 19.0L, Monocytes (%) (Auto) 10.1H, Eosinophils (%) (Auto) 4.3H, Basophils (%) (Auto) 0.5, Neutrophils # (Auto) 3.7, Lymphocytes # (Auto) 1.1L, Monocytes # (Auto) 0.6, Eosinophils # (Auto) 0.2, Basophils # (Auto) 0.0, Nucleated Red Bloo d Cells % (auto) 0.0, Anion Gap 10, Glomerular Filtration Rate 4.2L, Calcium Level 8.3L, Total Creatine Kinase 497H, Creatine Kinase MB 3.7H, Creatine Kinase MB Relative Index 0.74, Troponin I < 0.02 10/04/20 02:37: Coronavirus (COVID-19)(PCR) NEGATIVE, Influenza Type A (RT-PCR) NEGATIVE, Influenza Type B (RT-PCR) NEGATIVE, Respiratory Syncytial Virus (PCR) NEGATIVE CBC/BMP Laboratory Tests 10/04/20 01:17 Home Medications Scheduled Calcitriol (Rocaltrol) 0.5 Mcg Capsule, 0.5 MCG PO DAILY Carvedilol (Carvedilol) 25 Mg Tablet, 25 MG PO BID Cinacalcet (Sensipar) 30 Mg Tablet, 30 MG PO DAILY Clonidine HCl (Clonidine HCl) 0.1 Mg Tablet, 0.1 MG PO BID TAKE IF SBP > 150 Gentamicin Sulfate (Gentamicin Sulfate) 30 Gm Cream..g., 1 DOSE TOP DAILY APPLY TO DRESSING AND TAPE OVER PORT AFTER SHOWER Hydralazine HCl (Hydralazine HCl) 25 Mg Tablet, 25 MG PO QHS TAKE IF SBP > 190 Insulin Human Lispro (Novolog) 100 Unit/1 Ml Vial, 1 DOSE SC ASDIRECTED VIA INSULIN PUMP Losartan Potassium (Losartan Potassium) 100 Mg Tablet, 100 MG PO DAILY Nifedipine (Nifedipine ER) 90 Mg Tablet.er, 90 MG PO BID TAKE IF SBP > 130 Omeprazole (Omeprazole) 20 Mg Capsule.dr, 20 MG PO DAILY Polyethylene Glycol 3350 (Miralax) 17 Gm Powd.pack, 17 GM PO Q2D Sevelamer Carbonate (Sevelamer Carbonate) 800 Mg Tablet, 3,200 MG PO WM Sucroferric Oxyhydroxide (Velphoro) 500 Mg Tab.chew, 500 MG PO WM Scheduled PRN Clobetasol Propionate/Emoll (Clobetasol Emollient 0.05% Crm) 0.05% 15GM Cream..g., 1 DOSE TOP BID PRN for RASH/ITCHING APPLY TO HANDS NEEDED Allergies Coded Allergies: No Known Allergies (Unverified , 02/05/20) A-FIB/CHADSVASC A-FIB History Current/History of A-Fib/PAF?: No JOHANA CASTAÑEDA MD Oct 04, 2020 03:42
[2020-10-04] MEDS ORDERED: CLOBETASOL PROPIONATE EMOLLIENT 0.05% CR 60 GM TOP PRN (04:10)
[2020-10-04] MEDS ORDERED: MOM 30ML SUSPENSION UDC PO PRN (04:15)
[2020-10-04] MEDS ORDERED: ACETAMINOPHEN TAB 650MG DOSE (2X325MG) PO PRN (04:15)
[2020-10-04] MEDS ORDERED: MAALOX 30 ML SUSP *UDC PO PRN (04:15)
[2020-10-04] MEDS ORDERED: niCARdipine 40MG IN 200ML NACL IV BAG As Ordered ONE (05:37)
[2020-10-04] MEDS: (RENVELA) SEVELAMER **CARBONate** 800 MG TAB PO SCH ×3 (08:00→18:00)
--- NOTE | 2020-10-04 08:00 | ECGEPIP ---
[facility] - ED Test Date: 2020-10-04 Pat Name: KATIE CORDERO Department: Room: [facility]02 Gender: Male Senior National Account Manager: felice : 1975 Requested By: Juan Luis Munoz Order Number: [id number] Reading MD: Juan Luis Cross Measurements Intervals [place] Rate: 79 P: 33 MT: 156 QRS: -1 QRSD: 84 T: 17 QT: 426 QTc: 488 Interpretive Statements Normal sinus rhythm POOR R WAVE PROGRESSION Prolonged QT SIMILAR TO 07/22/20 Electronically Signed on 10-04-2020 8:00:37 EDT by Juan Luis Cross
[2020-10-04] MEDS: CARVedilol 12.5 MG TAB PO SCH ×2 (09:00→20:38)
[2020-10-04] MEDS: cloNIDine 0.1MG TABLET PO SCH ×2 (09:00→20:38)
[2020-10-04] MEDS ORDERED: MIRALAX *UNIT DOSE* 17GM PACKET PO SCH (09:00)
[2020-10-04] MEDS ORDERED: POTASSIUM CHLORIDE 10 MEQ SR TABLET PO ONE (09:00)
[2020-10-04] MEDS: DOCUSATE SODIUM 100MG CAPSULE PO SCH ×2 (09:00→20:37)
[2020-10-04] MEDS: LOSARTAN 50MG TABLET PO SCH (09:00)
[2020-10-04] MEDS: OMEPRAZOLE 20 MG CAP PO SCH (10:42)
[2020-10-04 14:01] VITALS: BP 166/77
[2020-10-04 14:05] VITALS: BP 152/78
[2020-10-04] MEDS: SUCROFERRIC OXYHYDROXIDE 500MG CHEW TAB (VELPHORO) PO SCH ×3 (14:39→18:00)
[2020-10-04] MEDS: CINACALCET 30 MG TAB (SENSIPAR) PO SCH (14:47)
[2020-10-04] MEDS: CALCITRIOL 0.25 MCG CAP (S0169) PO SCH (14:47)
[2020-10-04] MEDS ORDERED: SLF 3 ML SYR IV PRN (15:25)
[2020-10-04 16:00] VITALS: BP 148/78
[2020-10-04] MEDS: GENTAMICIN SULFATE 0.1% OINT 15 GM TOP SCH (17:20)
[2020-10-04 20:00] VITALS: BP 185/93
[2020-10-04] MEDS: NIFEdipine 30 MG XL TAB PO SCH (20:38)
[2020-10-04] MEDS ORDERED: **hydrALAZINE HCL** 25 MG TAB PO SCH (21:00)
--- NOTE | 2020-10-04 21:27 | CR ---
NEPHROLOGY CONSULTATION DATE: 10/04/2020 REQUESTING PHYSICIAN: Dr. Preston Guerrero CONSULTING PHYSICIAN: Dr. Kellie Carroll REASON FOR CONSULTATION: Management of end-stage renal disease and peritoneal dialysis in this patient with hypertensive urgency. CHIEF COMPLAINT: The patient presented to the hospital with headache and elevated blood pressures. HISTORY OF PRESENT ILLNESS: Tariq Crane is a 45-year-old male with a past medical history of end-stage renal disease, on peritoneal dialysis, well known to myself from the outpatient clinic. He has a large umbilical hernia. He is actually scheduled to have the hernia repaired on this coming Tuesday. However he presented to the Emergency Room yesterday with headache and uncontrolled blood pressure. Systolic blood pressures at home in the 200's. The patient admits to eating outside from [employer] and [employer]. His home blood pressure medications did not help lower his blood pressure. In the E.R. he was found to have a blood pressure of 234/112. He was started on Nicardipine infusion. He was admitted under the Hospitalist service. Nephrology service was called for further help in the management of this patient's volume status and peritoneal dialysis. I saw and evaluated the patient today morning at the bedside. He was given all of his home medications and his Nicardipine drip had been weaned off by the time I saw him in the morning. PAST MEDICAL HISTORY: The patient's past medical history is significant for: 1. End-stage renal disease on peritoneal dialysis. 2. Diabetes mellitus type 2. 3. Hypertension. 4. Umbilical hernia. 5. History of peritonitis in the past. PAST SURGICAL HISTORY: The patient's past surgical history is significant for: 1. Status post a left arm AV fistula. 2. Peritoneal dialysis catheter placement. ALLERGIES: No known drug allergies. FAMILY HISTORY: No significant family history of end-stage renal disease requiring hemodialysis. SOCIAL HISTORY: The patient denies any smoking, illicit drug abuse or alcohol abuse. REVIEW OF SYSTEMS: Constitutional: He denies any fevers or chills. Eyes: He denies any blurry vision, double vision. ENT: He denies any dysphagia or odynophagia. He did report headache on arrival. Cardiovascular: He denies any chest pain or palpitations. Respiratory: He denies any shortness of breath. Gastrointestinal: He denies any nausea or vomiting. Genitourinary: He reports decreased urine output. Musculoskeletal: He denies any muscle aches and pains. Skin: He denies any rashes or ulcers. Hematological/Oncological: He denies any easy bleeding or bruising. 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 All other review of systems is negative. PHYSICAL EXAMINATION: GENERAL APPEARANCE: The patient is awake, alert, oriented x3. VITAL SIGNS: When I saw him in the morning his temperature was 98 degrees Fahrenheit, blood pressure 128/63, pulse 78, respiratory rate of 18, saturating 99% on room air. HEAD AND NECK: Extraocular muscles intact. Pupils are equally round and reactive to light. Mucous membranes are moist. Neck is supple. There is no significant jugular venous distention. CARDIOVASCULAR: S1, S2, regular rate. EXTREMITIES: 1+ edema of the bilateral lower extremities. RESPIRATORY: Chest is clear to auscultation bilaterally. Bilaterally currently no rales or rhonchi. ABDOMEN: Soft, positive bowel sounds. Large tender umbilical hernia is noted. Peritoneal dialysis catheter is noted. Exit site is clear. MUSCULOSKELETAL: No clubbing, no cyanosis. Pulses are 2+. BULK TANK CAR UNLOADER: No focal deficits. Power is 5/5 in all extremities. LAB REVIEW: CBC showed a WBC count of 5.6, hemoglobin 9.5, platelet count 120. BMP showed sodium of 142, potassium 3.3, chloride 102, bicarbonate 30, BUN 74, creatinine is 13.7, calcium 8.3. Troponin is less than 0.02. IMAGING: A chest x-ray was done today morning which showed no acute findings. CURRENT INPATIENT MEDICATIONS: The patient's medications were all reviewed by myself. He was on Nicardipine drip which has been weaned off. He is on Calcitriol 0.5 mcg p.o. daily, Coreg 25 mg p.o. twice daily, Sensipar 30 mg p.o. daily, Clonidine 0.1 mg p.o. twice daily, Gentamicin topical ointment at the catheter site, Hydralazine 25 mg p.o. q. h.s., Losartan 100 mg p.o. daily, Milk of Magnesia 30 mL p.o. daily, Nifedipine 90 mg p.o. twice daily, Omeprazole 20 mg p.o. daily, Miralax one packet p.o. every other day, potassium chloride 40 mEq one dose was given. He is on Renvela 200 mg p.o. with meals and Velphoro 500 mg p.o. with meals. ASSESSMENT AND PLAN: 1. End-stage renal disease - The patient is on peritoneal dialysis. He has signs of some volume overload and he is hypertensive. I have changed is peritoneal regimen to three exchanges of 2.5% and two exchanges of 4.25% all manuals, all 2 liters. 2. Hypertensive urgency his blood pressures were more than 300 on arrival. Volume management is as mentioned above. His Nicardipine has been weaned off. Continue current dose of Clonidine, Coreg, Hydralazine, Losartan and Nifedipine. 3. Anemia in end-stage renal disease - hemoglobin is slightly suboptimal. However I would avoid giving the patient DREW in this patient with hypertension. 4. Chronic kidney disease, mineral bone disease, - continue current dose of Renvela and Velphoro. 5. Secondary hyperparathyroidism - continue current dose of Calcitriol and Sensipar. 6. Hypokalemia - The patient was given a dose of potassium chloride 40 mEq today morning. 7. Large umbilical hernia - This patient is scheduled to have the hernia surgery done on Tuesday, October 06, 2020. Thank you for involving me in the care of this patient. I shall be happy to follow the patient along with you tomorrow morning.
[2020-10-04] MEDS: SLF 3 ML SYR IV SCH (22:58)
[2020-10-05] VITALS: BP 166/94
[2020-10-05 04:00] VITALS: BP 157/79
[2020-10-05] MEDS: SLF 3 ML SYR IV SCH ×2 (06:16→13:09)
[2020-10-05 08:00] VITALS: BP 165/84
[2020-10-05] MEDS: SUCROFERRIC OXYHYDROXIDE 500MG CHEW TAB (VELPHORO) PO SCH ×2 (08:09→12:30)
[2020-10-05] MEDS: (RENVELA) SEVELAMER **CARBONate** 800 MG TAB PO SCH ×2 (08:09→12:30)
[2020-10-05] MEDS: CINACALCET 30 MG TAB (SENSIPAR) PO SCH (08:12)
[2020-10-05 08:13] VITALS: BP 165/84
[2020-10-05] MEDS: CARVedilol 12.5 MG TAB PO SCH (08:13)
[2020-10-05] MEDS: NIFEdipine 30 MG XL TAB PO SCH (08:13)
[2020-10-05] MEDS: LOSARTAN 50MG TABLET PO SCH (08:14)
[2020-10-05] MEDS: OMEPRAZOLE 20 MG CAP PO SCH (08:14)
[2020-10-05] MEDS: CALCITRIOL 0.25 MCG CAP (S0169) PO SCH (08:14)
[2020-10-05] MEDS: cloNIDine 0.1MG TABLET PO SCH (08:14)
[2020-10-05] MEDS: DOCUSATE SODIUM 100MG CAPSULE PO SCH (08:15)
[2020-10-05] MEDS: GENTAMICIN SULFATE 0.1% OINT 15 GM TOP SCH (08:29)
[2020-10-05 09:35] LABS: HEMATOCRIT 25.9 % (42.0-52.0); HEMOGLOBIN 8.6 g/dl (13.5-17.5); MEAN CORPUSCULAR HEMOGLOBIN 31.5 pg (27.0-33.0); MEAN CORPUSCULAR HGB CONC 33.2 g/dl (32.0-36.5); MEAN CORPUSCULAR VOLUME 94.9 fl (80.0-96.0); PLATELET COUNT, AUTOMATED 121 10^3/uL (150-450); RED BLOOD COUNT 2.73 10^6/uL (4.30-6.10); WHITE BLOOD COUNT 4.4 10^3/uL (4.0-10.0)
[2020-10-05 10:12] LABS: CALCIUM LEVEL 7.5 MG/DL (8.5-10.1); CREATININE FOR GFR 13.9 MG/DL (0.70-1.30); GLOMERULAR FILTRATION RATE 4.1 (>60); POTASSIUM SERUM 3.8 MEQ/L (3.5-5.1)
[2020-10-05 12:00] VITALS: BP 140/78
--- NOTE | 2020-10-05 15:57 | DS.PDOC ---
Discharge Summary General Date of Admission Oct 04, 2020 at 04:13 Date of Discharge 10/05/20 Discharge Summary PROCEDURES PERFORMED DURING STAY: [None]. ADMITTING DIAGNOSES: Hypertensive urgency DISCHARGE DIAGNOSES: HTN DM2 ESRD on PD Umbilical hernia peritonitis COMPLICATIONS/CHIEF COMPLAINT: Esrd On Peritoneal Dialysis, Hypertenstive Urgency. HISTORY OF PRESENT ILLNESS: 45 yo M with a PMHx of HTN, DM2, ESRD on PD, anemia, peritonitis, umbilical hernia, presented to ER after he found his SBP> 220 at home. He felt some warmth on the face and mild headache. He took some clonidine at home, but it did not improve his BP. He states good compliance with medications and PD. He also complains of slightly worsened lower extremity edema. He denies chest pain, palpitations, n/v/d, subjective fevers, and chills. Found to have BP of 234/112 on arrival to ER. Started on nicardipine infusion. Will be admitted to ICU for titration of nicardipine drip. HOSPITAL COURSE: Patient was admitted for further evaluation and treatment. He responded well to Nocardia. Drip which was discontinued a few hours after initiation. Patient was anxious to return home. His blood pressures remained within acceptable limits during his hospital stay. He was seen in consultation by by nephrology., He was deemed safe for return home with outpatient follow-up. DISCHARGE MEDICATIONS: Please see below. ALLERGIES: Please see below. PHYSICAL EXAMINATION ON DISCHARGE: VITAL SIGNS: Please see below. General: NAD, comfortable HEENT: PERRLA, EOMI, sclerae clear Neck: supple, normal ROM, no JVD Respiratory: lungs CTAB, no wheeze, no rales, no crackles CVS: RRR, normal S1, S2, no murmurs Abdo: Umbilical hernia, soft, no overlying skin changes. No pain to palpation. Extremities: no edema, pulses 2+ MSK: no joint deformities, normal ROM Neuro: no focal neuro deficits, moving all 4 extremities, CN2-12 intact. Strength 5/5 in all 4 extremities. No nystagmus. Psych: calm, cooperative, AAO x 3 LABORATORY DATA: Please see below. ACTIVITY: [As tolerated]. DISPOSITION: 01 Home, Self-Care. DISCHARGE INSTRUCTIONS: 1. Follow up PCP in 3-5 days 2. Follow up nephrology as scheduled. DISCHARGE CONDITION: [Stable]. TIME SPENT ON DISCHARGE: 35 minutes. Vital Signs/I&Os Vital Signs Date Time Temp Pulse Resp B/P (MAP) Pulse Ox O2 Delivery O2 Flow Rate FiO2 10/05/20 12:00 97.3 75 18 140/78 (98) 97 Room Air I&O- Last 24 Hours up to 6 AM 10/05/20 06:00 Intake Total 26390 ml Output Total 30669 ml Balance 954 ml Laboratory Data Labs 24H Laboratory Tests 2 10/05/20 09:11: Nucleated Red Blood Cells % (auto) 0.0, Anion Gap 8, Glomerular Filtration Rate 4.1L, Calcium Level 7.5L CBC/BMP Laboratory Tests 10/05/20 09:11 Discharge Medications Scheduled Calcitriol (Rocaltrol) 0.5 Mcg Capsule, 0.5 MCG PO DAILY, (Reported) Carvedilol (Carvedilol) 25 Mg Tablet, 25 MG PO BID, (Reported) Cinacalcet (Sensipar) 30 Mg Tablet, 30 MG PO DAILY, (Reported) Clonidine HCl (Clonidine HCl) 0.1 Mg Tablet, 0.1 MG PO BID, (Reported) TAKE IF SBP > 150 Gentamicin Sulfate (Gentamicin Sulfate) 30 Gm Cream..g., 1 DOSE TOP DAILY, (Reported) APPLY TO DRESSING AND TAPE OVER PORT AFTER SHOWER Hydralazine HCl (Hydralazine HCl) 25 Mg Tablet, 25 MG PO QHS, (Reported) TAKE IF SBP > 190 Insulin Human Lispro (Novolog) 100 Unit/1 Ml Vial, 1 DOSE SC ASDIRECTED, (Reported) VIA INSULIN PUMP Losartan Potassium (Losartan Potassium) 100 Mg Tablet, 100 MG PO DAILY, (Reported) Nifedipine (Nifedipine ER) 90 Mg Tablet.er, 90 MG PO BID, (Reported) TAKE IF SBP > 130 Omeprazole (Omeprazole) 20 Mg Capsule.dr, 20 MG PO DAILY, (Reported) Polyethylene Glycol 3350 (Miralax) 17 Gm Powd.pack, 17 GM PO Q2D, (Reported) Sevelamer Carbonate (Sevelamer Carbonate) 800 Mg Tablet, 3,200 MG PO WM, (Reported) Sucroferric Oxyhydroxide (Velphoro) 500 Mg Tab.chew, 500 MG PO WM, (Reported) Scheduled PRN Clobetasol Propionate/Emoll (Clobetasol Emollient 0.05% Crm) 0.05% 15GM Cream..g., 1 DOSE TOP BID PRN for RASH/ITCHING, (Reported) APPLY TO HANDS NEEDED Allergies Coded Allergies: No Known Allergies (Unverified , 02/05/20) NAMITA AMOS MD Oct 05, 2020 15:57
--- NOTE | 2020-10-05 22:44 | IPN ---
NEPHROLOGY PROGRESS NOTE DATE: 10/05/2020 SUBJECTIVE: The patient was seen and examined at the bedside today morning. He reports that he is feeling much better. His blood pressure is controlled. He also reports improving edema of the lower extremities with the use of 4.25% peritoneal dialysis. OBJECTIVE: VITAL SIGNS: Temperature is 97.3 degrees Fahrenheit, blood pressure is 140/78, pulse is 75, respiratory rate of 18, saturating 97% on room air. INTAKE AND OUTPUT: Urine output is not recorded and the peritoneal dialysis output is 5 liters so far. Weight in the bed scale is 85.5 kg. PHYSICAL EXAMINATION: GENERAL APPEARANCE: The patient is awake, alert, oriented x3, sitting up in the sofa in no apparent distress. HEAD AND NECK: Extraocular muscles intact. Pupils are equally round and reactive to light. Mucous membranes are moist. Neck is supple. There is no jugular venous distention. CARDIOVASCULAR: S1, S2, regular rate. EXTREMITIES: 1+ edema of the bilateral lower extremities. RESPIRATORY: Chest is clear to auscultation bilaterally. Bilaterally currently no rales or rhonchi. ABDOMEN: Soft, tender, large umbilical hernia is noted. Peritoneal dialysis catheter exit site is clean. MUSCULOSKELETAL: No clubbing, no cyanosis. Pulses are 2+. 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 Power is 5/5 in all extremities. LAB REVIEW: CBC showed a WBC of 4.4, hemoglobin 8.6, platelet count 121. BMP showed sodium 142, potassium 3.8, chloride 105, bicarbonate 29, BUN 79, creatinine is 13.9. CURRENT INPATIENT MEDICATIONS: The patient's medications were all reviewed by myself. There is no significant change in the medications today as compared with yesterday. ASSESSMENT AND PLAN: 1. End-stage renal disease - The patient is peritoneal dialysis dependent. He is tolerating the manual exchanges. When he goes home he will use the cycler and I advised him to use 4.25% to get rid of extra fluids. 2. Hypertensive urgency - blood pressures are significantly better controlled. Continue home dose of Clonidine, Coreg, Hydralazine, Losartan and Nifedipine and optimization of fluid status was advised. 3. Lower extremity edema - continue combination of 2.5% and 4.25% at home as well. 4. Anemia in end-stage renal disease - hemoglobin is suboptimal, however DREW was not given because of elevated blood pressures. 5. Large umbilical hernia - The patient is scheduled to have umbilical hernia surgery to be done as an outpatient tomorrow morning. 6. Disposition - The patient is optimized to be discharged from a nephrology standpoint. He will follow up with the [facility] after his hernia surgery.
== END 2020-10-05 13:48 | disposition home or self-care (01) | DRG 682 ==
LOC: M ED 00:20 → M ED INP 04:13 → ENRESERV 12:55 → M PCU 14:00
PROVIDERS: ADMIT Family Medicine; ATTEND Internal Medicine Nephrology
DX: I12.0 Hypertensive chronic kidney disease with stage 5 chronic kidney disease or end stage renal disease (principal); N18.6 End stage renal disease; N25.81 Secondary hyperparathyroidism of renal origin; E11.9 Type 2 diabetes mellitus without complications; K42.9 Umbilical hernia without obstruction or gangrene; Z79.899 Other long term (current) drug therapy; I16.0 Hypertensive urgency; D63.1 Anemia in chronic kidney disease; E87.6 Hypokalemia

== ENCOUNTER → 2020-10-13 | Outpatient (CLI) | payer OTHER ==
[~2020-10-13] MED LIST changes: +VELP5CHW PO
== END ==
LOC: M LABSMTC 10:20
PROVIDERS: ATTEND Anesthesiology
DX: Z01.812 Encounter for preprocedural laboratory examination (principal)

== ENCOUNTER 2021-03-16 13:53 | Emergency (ER) | payer MEDICARE, OTHER ==
[~2021-03-16] VITALS: Ht 172.7 cm; Wt 80.2 kg
[~2021-03-16 13:53] MED LIST changes: +LOSA100T45 PO; -LOSA100T50 PO
[2021-03-16] MEDS ORDERED: NIFEdipine 30 MG XL TAB PO STA (16:06)
[2021-03-16 16:33] LABS: BASO # 0.1 10^3/uL (0.0-0.2); BASO % 0.6 % (0.0-1.0); EOS # 0.2 10^3/uL (0.0-0.5); EOS % 2.1 % (0.0-3.0); HEMATOCRIT 28.7 % (42.0-52.0); HEMOGLOBIN 9.4 g/dl (13.5-17.5); LYMPH # 0.8 10^3/uL (1.5-5.0); LYMPH % 7.7 % (24.0-44.0); MEAN CORPUSCULAR HEMOGLOBIN 30.6 pg (27.0-33.0); MEAN CORPUSCULAR HGB CONC 32.8 g/dl (32.0-36.5); MEAN CORPUSCULAR VOLUME 93.5 fl (80.0-96.0); MONO # 0.6 10^3/uL (0.0-0.8); MONO % 5.2 % (2.0-8.0); NEUTROPHILS % 83.8 % (36.0-66.0); PLATELET COUNT, AUTOMATED 224 10^3/uL (150-450); RED BLOOD COUNT 3.07 10^6/uL (4.30-6.10); WHITE BLOOD COUNT 10.7 10^3/uL (4.0-10.0)
[2021-03-16 17:09] LABS: CALCIUM LEVEL 9.4 MG/DL (8.5-10.1); CREATININE FOR GFR 13.2 MG/DL (0.70-1.30); GLOMERULAR FILTRATION RATE 4.3 (>60); POTASSIUM SERUM 4.7 MEQ/L (3.5-5.1)
[2021-03-16] MEDS ORDERED: CARVedilol 12.5 MG TAB PO ONE (18:25)
[2021-03-16 18:55] VITALS: BP 200/100
[2021-03-16 19:58] VITALS: BP 200/100
[2021-03-16] MEDS ORDERED: NIFEdipine 30 MG XL TAB PO ONE (21:00)
[2021-03-17] MEDS ORDERED: NIFEdipine 30 MG XL TAB PO ONE (09:00)
== END 2021-03-16 21:26 | disposition home or self-care (01) ==
LOC: M ED 13:53 → EDBD 13:53 → M ED 21:26
DX: I16.0 Hypertensive urgency (principal); E11.9 Type 2 diabetes mellitus without complications; E78.5 Hyperlipidemia, unspecified; N18.6 End stage renal disease; Z99.2 Dependence on renal dialysis; E03.9 Hypothyroidism, unspecified; K21.9 Gastro-esophageal reflux disease without esophagitis; Z85.038 Personal history of other malignant neoplasm of large intestine; Z79.4 Long term (current) use of insulin; Z79.899 Other long term (current) drug therapy

== ENCOUNTER 2021-07-14 11:16 | Emergency (ER) | payer MEDICARE, OTHER ==
[~2021-07-14] VITALS: Ht 172.7 cm; Wt 84.5 kg
[2021-07-14 13:26] LABS: BASO # 0.1 10^3/uL (0.0-0.2); BASO % 0.5 % (0.0-1.0); EOS # 0.1 10^3/uL (0.0-0.5); EOS % 1.3 % (0.0-3.0); HEMATOCRIT 29.4 % (42.0-52.0); HEMOGLOBIN 10.3 g/dl (13.5-17.5); LYMPH # 0.9 10^3/uL (1.5-5.0); LYMPH % 9.8 % (24.0-44.0); MEAN CORPUSCULAR HEMOGLOBIN 32.7 pg (27.0-33.0); MEAN CORPUSCULAR VOLUME 93.3 fl (80.0-96.0); MONO # 0.8 10^3/uL (0.0-0.8); MONO % 8.2 % (2.0-8.0); NEUTROPHILS # 7.6 10^3/uL (1.5-8.5); NEUTROPHILS % 79.8 % (36.0-66.0); PLATELET COUNT, AUTOMATED 188 10^3/uL (150-450); RED BLOOD COUNT 3.15 10^6/uL (4.30-6.10); WHITE BLOOD COUNT 9.5 10^3/uL (4.0-10.0)
[2021-07-14] MEDS: MORPHINE 2 MG/ML 1ML VIAL IV ONE (13:54)
[2021-07-14] MEDS: ONDANSETRON 4MG/2ML VIAL IV ONE (13:54)
[2021-07-14 14:02] LABS: ALBUMIN 2.9 GM/DL (3.2-5.2); BILIRUBIN,DIRECT 0.2 MG/DL (0.0-0.2); BILIRUBIN,TOTAL 0.4 MG/DL (0.2-1.0); CALCIUM LEVEL 9.1 MG/DL (8.5-10.1); CREATININE FOR GFR 13.6 MG/DL (0.70-1.30); GLOMERULAR FILTRATION RATE 4.2 (>60); POTASSIUM SERUM 3.2 MEQ/L (3.5-5.1); TOTAL PROTEIN 5.9 GM/DL (6.4-8.2)
[2021-07-14 15:30] VITALS: BP 173/81
== END 2021-07-14 15:57 | disposition home or self-care (01) ==
LOC: M ED 11:16
DX: I12.0 Hypertensive chronic kidney disease with stage 5 chronic kidney disease or end stage renal disease (principal); N18.6 End stage renal disease; K42.9 Umbilical hernia without obstruction or gangrene; E11.9 Type 2 diabetes mellitus without complications; K21.9 Gastro-esophageal reflux disease without esophagitis; Z79.4 Long term (current) use of insulin; Z79.899 Other long term (current) drug therapy; Z98.890 Other specified postprocedural states
CPT/HCPCS: 74176; 80048; 80076; 83690; 84484; 85025; 93005; 93041; 96374; 96375; 99285; J2270; J2405

== ENCOUNTER → 2021-08-09 | Outpatient (CLI) | payer MEDICARE ==
[~2021-08-09] MED LIST changes: +CLON0.2D6 TD; +DITR5TAB PO; +VITA1CAP25 PO
== END ==
LOC: M LABSMTC 11:15
PROVIDERS: ATTEND Anesthesiology
DX: Z01.812 Encounter for preprocedural laboratory examination (principal); Z20.822 Contact with and (suspected) exposure to COVID-19

== ENCOUNTER 2021-08-12 12:21 | Day surgery (SDC) | payer OTHER, MEDICARE ==
[~2021-08-12] VITALS: Ht 172.7 cm; Wt 85.6 kg
[~2021-08-12 12:21] MED LIST changes: +NS 1,000 ML IV ONE
[2021-08-12] MEDS ORDERED: LIDOCAINE 2% 100MG/5ML SDV (FOR ANES.) As Ordered ONE (15:01)
[2021-08-12] MEDS ORDERED: propofoL 200 MG/20 ML VIAL As Ordered ONE (15:01)
[2021-08-12 15:25] VITALS: BP 190/95
== END 2021-08-12 15:33 | disposition home or self-care (01) ==
LOC: M OPP 12:21
PROVIDERS: ATTEND Surgery
DX: Z12.11 Encounter for screening for malignant neoplasm of colon (principal); I10 Essential (primary) hypertension; E10.9 Type 1 diabetes mellitus without complications; K21.9 Gastro-esophageal reflux disease without esophagitis; L30.9 Dermatitis, unspecified; Z79.4 Long term (current) use of insulin; Z79.899 Other long term (current) drug therapy
CPT/HCPCS: 36415; 84132; G0121

== ENCOUNTER 2021-08-31 12:37 | Emergency (ER) | payer OTHER ==
[~2021-08-31] VITALS: Ht 172.7 cm; Wt 83.8 kg
[~2021-08-31 12:37] MED LIST changes: -NS 1,000 ML IV ONE
[2021-08-31 12:38] VITALS: BP 180/85
== END 2021-08-31 14:00 | disposition left against medical advice (07) ==
LOC: M ED 12:37
DX: Z53.21 Procedure and treatment not carried out due to patient leaving prior to being seen by health care provider (principal)

== ENCOUNTER → 2021-11-25 | Outpatient (CLI) | payer OTHER ==
[~2021-11-25] MED LIST changes: +PANT20TA6 PO
== END ==
LOC: M LABSMTC 10:36
PROVIDERS: ATTEND Anesthesiology
DX: Z01.818 Encounter for other preprocedural examination (principal); Z11.52 Encounter for screening for COVID-19

== ENCOUNTER 2021-11-30 06:19 | Day surgery (SDC) | payer OTHER ==
[~2021-11-30] VITALS: Ht 172.7 cm; Wt 84.7 kg
[~2021-11-30 06:19] MED LIST changes: +CelecoXIB 400 MG CAP PO ONE; +ceFAZolin SOD 2 GM in IV 1 EA IV ONE
[2021-11-30] MEDS ORDERED: LR 1,000 ML IV SCH ×2 (06:30→13:15)
[2021-11-30] MEDS ORDERED: NS 1,000 ML IV SCH (07:05)
[2021-11-30] MEDS ORDERED: DESFLURANE 240 ML INHALANT As Ordered ONE (07:11)
[2021-11-30] MEDS ORDERED: BUPIVACAINE HCL 0.25% 30ML VIAL As Ordered ONE (07:13)
[2021-11-30] MEDS ORDERED: LIDOCAINE 1% SDV 30ML VIAL As Ordered ONE (07:13)
[2021-11-30] MEDS ORDERED: BUPIVACAINE HCL 0.25% 10ML VIAL As Ordered ONE (07:13)
[2021-11-30] MEDS ORDERED: BUPIVACAINE LIPOSOME/PF 1.3% 20ML VIAL (13.3MG/ML)(EXPAREL) As Ordered ONE (07:14)
[2021-11-30] MEDS ORDERED: LACRILUBE (AKWA TEARS) OPHTH OINT 3.5 GM As Ordered ONE (07:16)
[2021-11-30] MEDS ORDERED: propofoL 200 MG/20 ML VIAL As Ordered ONE (07:17)
[2021-11-30] MEDS ORDERED: LIDOCAINE 2% 100MG/5ML SDV (FOR ANES.) As Ordered ONE (07:17)
[2021-11-30] MEDS ORDERED: ROCURONIUM BROMIDE 50 MG/5 ML VIAL As Ordered ONE (07:18)
[2021-11-30] MEDS ORDERED: fentaNYL 250 MCG/5 ML INJECTION As Ordered ONE (07:18)
[2021-11-30] MEDS ORDERED: MIDAZOLAM INJ 2MG/2ML VIAL (J2250 PER 1MG) As Ordered ONE (07:18)
[2021-11-30] MEDS ORDERED: dexameTHASONE 4 MG/ML 1ML VIAL (J1100 PER 1MG) As Ordered ONE (07:18)
[2021-11-30] MEDS ORDERED: ONDANSETRON 4MG 2ML VIAL As Ordered ONE (07:18)
[2021-11-30] MEDS ORDERED: VECURONIUM BROMIDE 10MG VIAL As Ordered ONE ×2 (08:34→11:17)
[2021-11-30] MEDS ORDERED: fentaNYL 100 MCG/2 ML INJECTION As Ordered ONE (11:13)
[2021-11-30] MEDS ORDERED: HEPARIN SOD (PORCINE) 5000UNITS/ML 1ML VIAL/SYRINGE As Ordered ONE (12:05)
[2021-11-30] MEDS ORDERED: ACETAMINOPHEN 1000MG 100ML IV BTL (OFIRMEV) (J0131 PER 10MG) As Ordered ONE (12:36)
[2021-11-30] MEDS ORDERED: SUGAMMADEX SODIUM 500 MG/5 ML VIAL (BRIDION) As Ordered ONE (12:38)
[2021-11-30] MEDS ORDERED: KETOROLAC 60MG 2ML VIAL As Ordered ONE (12:38)
[2021-11-30] MEDS ORDERED: PERCOCET 5MG/325MG TAB PO PRN ×2 (12:55)
[2021-11-30] MEDS ORDERED: ONDANSETRON 4MG 2ML VIAL IV PRN ×2 (12:55→13:15)
[2021-11-30] MEDS ORDERED: CLOBETASOL PROPIONATE EMOLLIENT 0.05% CR 60 GM TOP PRN (12:55)
[2021-11-30] MEDS ORDERED: MORPHINE 4 MG/ML 1ML VIAL/SYRINGE IV PRN (12:55)
[2021-11-30] MEDS ORDERED: oxyCODONE 5MG TAB PO PRN (13:15)
[2021-11-30] MEDS ORDERED: INSULIN LISPRO (NovoLOG) PER UNIT SC PRN (13:15)
[2021-11-30] MEDS: fentaNYL 100 MCG/2 ML INJECTION IV PRN ×2 (13:59→14:23)
[2021-11-30] MEDS: CelecoXIB (CeleBREX) 100 MG CAP PO SCH ×2 (14:00→20:41)
[2021-11-30 15:30] VITALS: BP 159/84
[2021-11-30 16:00] VITALS: BP 155/83
[2021-11-30 17:00] VITALS: BP 157/84
[2021-11-30 18:00] VITALS: BP 158/84
[2021-11-30 19:00] VITALS: BP 159/85
[2021-11-30] MEDS: SENOKOT S TAB PO SCH (20:40)
[2021-11-30] MEDS ORDERED: ceFAZolin SOD 2 GM in IV 1 EA IV ONE (21:00)
[2021-11-30 22:00] VITALS: BP 159/85; O2SAT 96
[2021-11-30] MEDS: NIFEdipine 30 MG XL TAB PO SCH (22:20)
[2021-12-01 02:28] VITALS: BP 161/85
[2021-12-01 05:45] VITALS: BP_SYST 190; BP_SYST 192; BP_DIAS 96
[2021-12-01] MEDS: NIFEdipine 30 MG XL TAB PO SCH (06:01)
[2021-12-01 06:43] LABS: BASO % 0.5 % (0.0-1.0); EOS % 0.5 % (0.0-3.0); HEMATOCRIT 24.3 % (42.0-52.0); HEMOGLOBIN 7.9 g/dl (13.5-17.5); LYMPH % 11.3 % (24.0-44.0); MEAN CORPUSCULAR HEMOGLOBIN 30.5 pg (27.0-33.0); MEAN CORPUSCULAR HGB CONC 32.5 g/dl (32.0-36.5); MEAN CORPUSCULAR VOLUME 93.8 fl (80.0-96.0); MONO # 0.8 10^3/uL (0.0-0.8); MONO % 9.2 % (2.0-8.0); NEUTROPHILS # 6.8 10^3/uL (1.5-8.5); NEUTROPHILS % 77.9 % (36.0-66.0); PLATELET COUNT, AUTOMATED 162 10^3/uL (150-450); RED BLOOD COUNT 2.59 10^6/uL (4.30-6.10); WHITE BLOOD COUNT 8.8 10^3/uL (4.0-10.0)
[2021-12-01 06:48] VITALS: BP 192/96
[2021-12-01 06:50] VITALS: BP 180/82
[2021-12-01 07:16] LABS: CALCIUM LEVEL 8.8 MG/DL (8.5-10.1); CREATININE FOR GFR 15.3 MG/DL (0.70-1.30); GLOMERULAR FILTRATION RATE 3.6 (>60); POTASSIUM SERUM 4.8 MEQ/L (3.5-5.1)
[2021-12-01] MEDS: SENOKOT S TAB PO SCH (08:25)
[2021-12-01] MEDS: CelecoXIB (CeleBREX) 100 MG CAP PO SCH (08:25)
[2021-12-01 08:31] VITALS: BP 180/82
[2021-12-01] MEDS ORDERED: LOSARTAN 50MG TABLET PO SCH (09:00)
[2021-12-01] MEDS ORDERED: CARVedilol 12.5 MG TAB PO SCH (09:00)
[2021-12-01] MEDS ORDERED: GENTAMICIN SULFATE 0.1% OINT 15 GM TOP SCH (09:00)
[2021-12-01] MEDS ORDERED: cloNIDine HCL 0.2 MG/24 HR PATCH TD SCH (09:00)
[2021-12-01] MEDS ORDERED: oxyBUTYnin *DITROPAN XL* 5 MG TABCR PO SCH (09:00)
[2021-12-01] MEDS ORDERED: ENOXAPARIN 30MG/0.3ML SYRINGE (J1650 PER 10MG) SC SCH (09:00)
[2021-12-01] MEDS ORDERED: OXYC1TAB23 PO (09:43)
[2021-12-02] MEDS ORDERED: CALCITRIOL 0.25 MCG CAP (S0169) PO SCH (09:00)
[2021-12-02] MEDS ORDERED: CINACALCET 30 MG TAB (SENSIPAR) PO SCH (09:00)
== END 2021-12-01 13:05 | disposition home or self-care (01) ==
LOC: M SDC 06:19 → M MS5PR 15:25 → M SDC 12-01 13:05
PROVIDERS: ATTEND Surgery
DX: K42.9 Umbilical hernia without obstruction or gangrene (principal); M62.00 Separation of muscle (nontraumatic), unspecified site; L98.7 Excessive and redundant skin and subcutaneous tissue; Z98.84 Bariatric surgery status; N18.6 End stage renal disease; Z99.2 Dependence on renal dialysis; Z79.899 Other long term (current) drug therapy; E11.9 Type 2 diabetes mellitus without complications; I12.0 Hypertensive chronic kidney disease with stage 5 chronic kidney disease or end stage renal disease
CPT/HCPCS: 15830; 36415; 49652; 80048; 84132; 85025; 96365; 96372; C1781; C9290; J0131; J0690; J1100; J1642; J1644; J1650; J1885; J2250; J2405; J3010; S2900

== ENCOUNTER → 2022-04-22 | Outpatient (CLI) | payer OTHER ==
[~2022-04-22] MED LIST changes: +CATA0.2D; -CelecoXIB 400 MG CAP PO ONE; +OXYC1TAB23 PO; -ceFAZolin SOD 2 GM in IV 1 EA IV ONE
== END ==
LOC: M LABSMTC 10:26
PROVIDERS: ATTEND Anesthesiology
DX: Z01.812 Encounter for preprocedural laboratory examination (principal); Z11.52 Encounter for screening for COVID-19

== ENCOUNTER 2022-04-27 13:14 | Day surgery (SDC) | payer OTHER ==
[~2022-04-27] VITALS: Ht 172.7 cm; Wt 74.4 kg
[~2022-04-27 13:14] MED LIST changes: +LIDOCAINE 2% 100MG/5ML SDV (FOR ANES.) As Ordered ONE; +NS 1,000 ML IV ONE; +propofoL 200 MG/20 ML VIAL As Ordered ONE
[2022-04-27] MEDS ORDERED: propofoL 200 MG/20 ML VIAL As Ordered ONE (14:52)
[2022-04-27] MEDS ORDERED: fentaNYL 100 MCG/2 ML INJECTION As Ordered ONE (14:54)
[2022-04-27 15:31] VITALS: BP 155/74
== END 2022-04-27 15:35 | disposition home or self-care (01) ==
LOC: M OPP 13:14
PROVIDERS: ATTEND Surgery
DX: R13.10 Dysphagia, unspecified (principal); Z79.899 Other long term (current) drug therapy; Z79.4 Long term (current) use of insulin; E11.9 Type 2 diabetes mellitus without complications; I10 Essential (primary) hypertension
CPT/HCPCS: 36415; 43235; 84132; J3010

== ENCOUNTER → 2022-04-28 | Outpatient (CLI) | payer OTHER ==
[~2022-04-28] MED LIST changes: -LIDOCAINE 2% 100MG/5ML SDV (FOR ANES.) As Ordered ONE; -NS 1,000 ML IV ONE; -propofoL 200 MG/20 ML VIAL As Ordered ONE
== END ==
LOC: M RAD 09:51
PROVIDERS: ATTEND Surgery
DX: K30 Functional dyspepsia (principal)
CPT/HCPCS: 78264; A9541

== ENCOUNTER 2022-10-17 15:54 | Inpatient (IN) | payer OTHER ==
[~2022-10-17] VITALS: Ht 172.7 cm; Wt 79.3 kg
[~2022-10-17 15:54] MED LIST changes: -LOSA100T45 PO; +LOSA100T46 PO; -NIFE90TA20 PO; +NIFE90TA46 PO
[2022-10-17] MEDS ORDERED: NS 500 ML IV ONE (17:50)
[2022-10-17] MEDS ORDERED: MORPHINE 4 MG/ML 1ML VIAL IV ONE (18:00)
[2022-10-17 18:27] LABS: PERITONEAL FL COLOR COLORLESS (COLORLESS); SOURCE, BODY FLUID PERITONEAL
[2022-10-17 18:28] LABS: APPEARANCE, BODY FLUID HAZY (CLEAR)
[2022-10-17 18:33] LABS: SOURCE, BODY FLUID ALBUMIN PERITONEAL
[2022-10-17 18:38] LABS: SOURCE, BODY FLUID GLUCOSE P.DIALYSIS
[2022-10-17 18:40] LABS: SOURCE, BODY FLUID TOT PROTEIN P.DIALYSIS; TOTAL PROTEIN, BODY FLUID < 2.0 G/DL (NOT ESTABLISHED)
[2022-10-17] MEDS ORDERED: ISOVUE-370 76% 100ML VIAL As Ordered ONE (19:20)
[2022-10-17 19:35] LABS: BASO % 0.2 % (0.0-1.0); EOS % 0.1 % (0.0-3.0); HEMATOCRIT 32.2 % (42.0-52.0); HEMOGLOBIN 11.3 g/dl (13.5-17.5); LYMPH # 0.6 10^3/uL (1.5-5.0); LYMPH % 3.2 % (24.0-44.0); MEAN CORPUSCULAR HEMOGLOBIN 29.5 pg (27.0-33.0); MEAN CORPUSCULAR HGB CONC 35.1 g/dl (32.0-36.5); MEAN CORPUSCULAR VOLUME 84.1 fl (80.0-96.0); MONO # 1.1 10^3/uL (0.0-0.8); MONO % 5.6 % (2.0-8.0); NEUTROPHILS # 17.1 10^3/uL (1.5-8.5); NEUTROPHILS % 90.2 % (36.0-66.0); PLATELET COUNT, AUTOMATED 329 10^3/uL (150-450); RED BLOOD COUNT 3.83 10^6/uL (4.30-6.10)
[2022-10-17 20:06] LABS: CK-MB VALUE MASS 2.6 NG/ML (<3.6); LIPASE 21 U/L (12-53)
[2022-10-17 20:12] LABS: ALBUMIN 2.5 G/DL (3.2-5.2); ALKALINE PHOSPHATASE 68 U/L (46-116); ALT/SGPT 19 U/L (7.0-40); AST/SGOT 23 U/L (<34); BILIRUBIN,DIRECT < 0.1 MG/DL (<0.4); BILIRUBIN,TOTAL 0.2 MG/DL (0.3-1.2); BLOOD UREA NITROGEN 38 MG/DL (9-23); CARBON DIOXIDE LEVEL 30 MMOL/L (20-31); CHLORIDE LEVEL 92 MMOL/L (98-107); CPK CREATINE PHOSPHOKINASE 81 U/L (46-171); GLOMERULAR FILTRATION RATE 7.6 (>60); GLUCOSE, FASTING 105 MG/DL (60-100); POTASSIUM SERUM 3.6 MMOL/L (3.5-5.1); SODIUM LEVEL 133 MMOL/L (136-145); TOTAL PROTEIN 6.3 G/DL (5.7-8.2)
[2022-10-17] MEDS ORDERED: VANCOMYCIN HCL 1,500 MG in IV FLUID PLACE HOLDER 1 EA IV ONE (20:30)
[2022-10-17] MEDS ORDERED: ceFAZolin SOD 2 GM in IV 1 EA IV ONE (20:30)
[2022-10-17] MEDS ORDERED: HYDROMORPHONE HCL 0.5 MG/ 0.5 ML SYRINGE IV ONE (20:45)
[2022-10-17] MEDS ORDERED: VANCOMYCIN HCL 750 MG, VIAL MATE ADAPTER 1 EACH in D5W 250 ML IV ONE ×2 (21:00→22:00)
[2022-10-17 21:02] LABS: INR 1.07; PROTHROMBIN TIME 13.6 SECONDS (12.5-14.5)
[2022-10-17 21:03] LABS: PARTIAL THROMBOPLASTIN TIME 28.5 SECONDS (24.8-34.2)
[2022-10-17] MEDS ORDERED: CLON0.3D8 TOP (22:42)
[2022-10-17] MEDS ORDERED: AMIT50TA PO (22:42)
[2022-10-17] MEDS ORDERED: OXYB5TAB10 PO (22:42)
[2022-10-17] MEDS ORDERED: METO5TAB2 PO (22:45)
[2022-10-17] MEDS ORDERED: NIFE90TA46 PO (22:45)
[2022-10-17] MEDS ORDERED: hydrALAZINE 20MG/ML 1ML VIAL IV STA (22:49)
[2022-10-17] MEDS ORDERED: PANT40TA29 PO (23:03)
[2022-10-17] MEDS ORDERED: SENN-122 PO (23:04)
[2022-10-17] MEDS ORDERED: HOME MED LIST COMPLETE! XX SCH (23:05)
[2022-10-17] MEDS ORDERED: METOPROLOL 5 MG/5 ML VIAL IV STA (23:30)
[2022-10-17] MEDS ORDERED: METOCLOPRAMIDE INJ 10MG/2ML VIAL IV PRN (23:40)
[2022-10-17] MEDS ORDERED: GLUCAGON INJ 1MG VIAL SC PRN (23:45)
[2022-10-17] MEDS ORDERED: GLUCOSE 4GM CHEW TABLET PO PRN (23:45)
[2022-10-17] MEDS ORDERED: hydrALAZINE 20MG/ML 1ML VIAL IV PRN (23:45)
[2022-10-17] MEDS ORDERED: DEXTROSE 50% 50ML SYRINGE IV PRN (23:45)
[2022-10-17] MEDS ORDERED: HYDROMORPHONE HCL 0.5 MG/ 0.5 ML SYRINGE IV PRN (23:45)
[2022-10-17] MEDS ORDERED: ONDANSETRON 4MG 2ML VIAL IV PRN (23:45)
[2022-10-18] VITALS (9 sets, daily range): BP systolic 137–202; BP diastolic 72–96; TEMP 97.2–98.3; O2SAT 95–100
[2022-10-18] MEDS ORDERED: LABETALOL 100MG/20ML VIAL IV ONE (00:10)
[2022-10-18] MEDS ORDERED: VANCOMYCIN HCL 1,000 MG, VIAL MATE ADAPTER 1 EACH in NS 250 ML IV SCH (00:50)
[2022-10-18] MEDS ORDERED: VANCOMYCIN INTERMITTENT/PULSE DOSING BY CLINICAL PHARMACIST PER DOSING PROTOCOL XX SCH (01:20)
[2022-10-18] MEDS ORDERED: LABETALOL 100MG/20ML VIAL IV PRN ×2 (01:35→14:50)
[2022-10-18] MEDS: hydrALAZINE 20MG/ML 1ML VIAL IV STA ×2 (03:00→03:10)
[2022-10-18] MEDS ORDERED: CEFEPIME HCL 1 GM in D5W 50 ML IV SCH (05:00)
[2022-10-18 05:19] LABS: HEMATOCRIT 28.1 % (42.0-52.0); HEMOGLOBIN 9.8 g/dl (13.5-17.5); MEAN CORPUSCULAR HEMOGLOBIN 29.4 pg (27.0-33.0); MEAN CORPUSCULAR HGB CONC 34.9 g/dl (32.0-36.5); MEAN CORPUSCULAR VOLUME 84.4 fl (80.0-96.0); PLATELET COUNT, AUTOMATED 276 10^3/uL (150-450); RED BLOOD COUNT 3.33 10^6/uL (4.30-6.10); WHITE BLOOD COUNT 16.3 10^3/uL (4.0-10.0)
[2022-10-18] MEDS: HEPARIN SOD (PORCINE) 5000UNITS/ML 1ML VIAL/SYRINGE SC SCH ×3 (05:21→22:03)
[2022-10-18 05:50] LABS: ALBUMIN 1.7 G/DL (3.2-5.2); ALKALINE PHOSPHATASE 52 U/L (46-116); ALT/SGPT 11 U/L (7.0-40); AST/SGOT < 8 U/L (<34); BILIRUBIN,TOTAL < 0.2 MG/DL (0.3-1.2); BLOOD UREA NITROGEN 41 MG/DL (9-23); CALCIUM LEVEL 7.9 MG/DL (8.5-10.1); CARBON DIOXIDE LEVEL 30 MMOL/L (20-31); CHLORIDE LEVEL 95 MMOL/L (98-107); CREATININE FOR GFR 9.13 MG/DL (0.70-1.30); GLOMERULAR FILTRATION RATE 6.6 (>60); GLUCOSE, FASTING 57 MG/DL (60-100); MAGNESIUM LEVEL 1.3 MG/DL (1.8-2.4); POTASSIUM SERUM 3.1 MMOL/L (3.5-5.1); SODIUM LEVEL 134 MMOL/L (136-145); TOTAL PROTEIN 4.8 G/DL (5.7-8.2)
[2022-10-18] MEDS ORDERED: INSULIN LISPRO (NovoLOG) PER UNIT SC SCH ×2 (07:30→21:00)
[2022-10-18] MEDS: (RENVELA) SEVELAMER **CARBONate** 800 MG TAB PO SCH ×3 (08:51→18:11)
[2022-10-18] MEDS: LOSARTAN 50MG TABLET PO SCH (08:51)
[2022-10-18] MEDS: oxyBUTYnin 5 MG TAB PO SCH ×2 (08:52→21:20)
[2022-10-18] MEDS: CARVedilol 12.5 MG TAB PO SCH ×2 (08:52→21:20)
[2022-10-18] MEDS: CALCITRIOL 0.25 MCG CAP (S0169) PO SCH (08:52)
[2022-10-18] MEDS: NIFEdipine 30MG XL TAB PO SCH (08:52)
[2022-10-18] MEDS: PANTOPRAZOLE 40MG VIAL IV SCH ×2 (08:52→21:20)
[2022-10-18] MEDS: MAG SULF 1GM/100ML (MAG RUN) 1 GM in IV 1 EA IV SCH ×2 (08:53→10:50)
[2022-10-18] MEDS ORDERED: POTASSIUM CHLORIDE 10MEQ SR TABLET PO ONE (09:00)
[2022-10-18] MEDS ORDERED: MAG SULF 1GM/100ML (MAG RUN) 1 GM in IV 1 EA IV SCH (09:50)
[2022-10-18] MEDS: FLUCONAZOLE 100 MG TAB PO SCH (10:49)
[2022-10-18] MEDS: MAGNESIUM OXIDE 400MG TAB (MAG-OX) PO SCH ×2 (10:50→21:20)
[2022-10-18] MEDS: MORPHINE 2 MG/ML 1ML VIAL IV PRN ×2 (11:34→21:39)
[2022-10-18] MEDS: AMITRIPTYLINE 50 MG TAB PO SCH (21:20)
[2022-10-18] MEDS ORDERED: VANCOMYCIN 1000MG/20ML VIAL IP ONE (22:00)
[2022-10-18] MEDS: RAMELTEON 8 MG TAB (ROZEREM) PO SCH (23:44)
[2022-10-19] MEDS: MORPHINE 2 MG/ML 1ML VIAL IV PRN ×5 (01:45→21:12)
[2022-10-19 04:21] VITALS: BP 117/62; TEMP 97.8; O2SAT 95
[2022-10-19 04:40] LABS: BASO % 0.6 % (0.0-1.0); EOS # 0.2 10^3/uL (0.0-0.5); EOS % 2.1 % (0.0-3.0); HEMOGLOBIN 8.2 g/dl (13.5-17.5); LYMPH # 0.8 10^3/uL (1.5-5.0); LYMPH % 11.1 % (24.0-44.0); MEAN CORPUSCULAR HEMOGLOBIN 29.8 pg (27.0-33.0); MEAN CORPUSCULAR HGB CONC 34.2 g/dl (32.0-36.5); MEAN CORPUSCULAR VOLUME 87.3 fl (80.0-96.0); MONO # 0.7 10^3/uL (0.0-0.8); MONO % 10.2 % (2.0-8.0); NEUTROPHILS # 5.2 10^3/uL (1.5-8.5); NEUTROPHILS % 73.9 % (36.0-66.0); PLATELET COUNT, AUTOMATED 247 10^3/uL (150-450); RED BLOOD COUNT 2.75 10^6/uL (4.30-6.10)
[2022-10-19 05:03] LABS: VANCOMYCIN RANDOM 23.7 UG/ML
[2022-10-19 05:21] LABS: CALCIUM LEVEL 7.7 MG/DL (8.5-10.1); CREATININE FOR GFR 9.29 MG/DL (0.70-1.30); GLOMERULAR FILTRATION RATE 6.5 (>60); MAGNESIUM LEVEL 1.7 MG/DL (1.8-2.4); PHOSPHORUS LEVEL 4.7 MG/DL (2.5-4.9); POTASSIUM SERUM 3.4 MMOL/L (3.5-5.1)
[2022-10-19] MEDS: HEPARIN SOD (PORCINE) 5000UNITS/ML 1ML VIAL/SYRINGE SC SCH ×3 (05:41→21:11)
[2022-10-19] MEDS ORDERED: POTASSIUM CHLORIDE 10MEQ SR TABLET PO ONE (07:30)
[2022-10-19] MEDS ORDERED: MAG SULF 1GM/100ML (MAG RUN) 1 GM in IV 1 EA IV ONE (07:30)
[2022-10-19 07:35] LABS: APPEARANCE, BODY FLUID CLEAR (CLEAR); PERITONEAL DIALYSATE FL COLOR COLORLESS (COLORLESS); SOURCE, BODY FLUID PERITONEAL DIALYSATE
[2022-10-19 07:49] VITALS: BP 138/78; TEMP 97.1; O2SAT 99
[2022-10-19] MEDS ORDERED: DARBEPOETIN 100MCG/0.5ML *DIALYSIS* SYRINGE SC SCH (09:00)
[2022-10-19] MEDS: PANTOPRAZOLE 40MG VIAL IV SCH (09:06)
[2022-10-19] MEDS: CALCITRIOL 0.25 MCG CAP (S0169) PO SCH (09:07)
[2022-10-19] MEDS: LOSARTAN 50MG TABLET PO SCH (09:07)
[2022-10-19] MEDS: (RENVELA) SEVELAMER **CARBONate** 800 MG TAB PO SCH ×3 (09:07→19:06)
[2022-10-19] MEDS: FLUCONAZOLE 100 MG TAB PO SCH (09:08)
[2022-10-19] MEDS: oxyBUTYnin 5 MG TAB PO SCH ×2 (09:08→21:12)
[2022-10-19] MEDS: MAGNESIUM OXIDE 400MG TAB (MAG-OX) PO SCH ×2 (09:08→21:12)
[2022-10-19] MEDS: CARVedilol 12.5 MG TAB PO SCH ×2 (09:08→21:11)
[2022-10-19] MEDS: NIFEdipine 30MG XL TAB PO SCH (09:13)
[2022-10-19] MEDS ORDERED: CEFEPIME 1GM VIAL (MAXIPIME) IP SCH (10:00)
[2022-10-19 12:59] VITALS: BP 137/77; TEMP 96.3; O2SAT 97
[2022-10-19 20:02] VITALS: BP 108/61; TEMP 96.7; O2SAT 99
[2022-10-19] MEDS: RAMELTEON 8 MG TAB (ROZEREM) PO SCH (21:11)
[2022-10-19] MEDS: PANTOPRAZOLE 40MG TAB (PROTONIX) PO SCH (21:12)
[2022-10-19] MEDS: AMITRIPTYLINE 50 MG TAB PO SCH (21:16)
[2022-10-19] MEDS ORDERED: VANCOMYCIN 1000MG/20ML VIAL IP SCH (22:00)
[2022-10-19] MEDS ORDERED: VANCOMYCIN 500MG/10ML VIAL IP SCH (22:00)
[2022-10-20] VITALS: BP 159/85; TEMP 97.2; O2SAT 99
[2022-10-20] MEDS: MORPHINE 2 MG/ML 1ML VIAL IV PRN (05:27)
[2022-10-20] MEDS: HEPARIN SOD (PORCINE) 5000UNITS/ML 1ML VIAL/SYRINGE SC SCH ×2 (05:36→14:00)
[2022-10-20 05:43] LABS: BASO # 0.1 10^3/uL (0.0-0.2); BASO % 1.1 % (0.0-1.0); EOS # 0.3 10^3/uL (0.0-0.5); EOS % 5.1 % (0.0-3.0); HEMATOCRIT 25.2 % (42.0-52.0); HEMOGLOBIN 8.4 g/dl (13.5-17.5); LYMPH # 0.8 10^3/uL (1.5-5.0); LYMPH % 15.3 % (24.0-44.0); MEAN CORPUSCULAR HEMOGLOBIN 29.5 pg (27.0-33.0); MEAN CORPUSCULAR HGB CONC 33.3 g/dl (32.0-36.5); MEAN CORPUSCULAR VOLUME 88.4 fl (80.0-96.0); MONO # 0.6 10^3/uL (0.0-0.8); MONO % 10.4 % (2.0-8.0); NEUTROPHILS # 3.5 10^3/uL (1.5-8.5); NEUTROPHILS % 63.7 % (36.0-66.0); PLATELET COUNT, AUTOMATED 295 10^3/uL (150-450); RED BLOOD COUNT 2.85 10^6/uL (4.30-6.10); WHITE BLOOD COUNT 5.5 10^3/uL (4.0-10.0)
[2022-10-20 06:20] VITALS: BP 152/82; TEMP 97.5; O2SAT 99
[2022-10-20 06:23] LABS: CALCIUM LEVEL 7.8 MG/DL (8.5-10.1); CREATININE FOR GFR 8.85 MG/DL (0.70-1.30); GLOMERULAR FILTRATION RATE 6.8 (>60); MAGNESIUM LEVEL 1.9 MG/DL (1.8-2.4); POTASSIUM SERUM 3.6 MMOL/L (3.5-5.1)
[2022-10-20 07:19] LABS: APPEARANCE, BODY FLUID CLEAR (CLEAR); PERITONEAL DIALYSATE FL COLOR COLORLESS (COLORLESS); SOURCE, BODY FLUID PERITONEAL DIALYSATE
[2022-10-20] MEDS: oxyBUTYnin 5 MG TAB PO SCH (08:27)
[2022-10-20] MEDS: FLUCONAZOLE 100 MG TAB PO SCH (08:27)
[2022-10-20] MEDS: PANTOPRAZOLE 40MG TAB (PROTONIX) PO SCH (08:27)
[2022-10-20] MEDS: (RENVELA) SEVELAMER **CARBONate** 800 MG TAB PO SCH ×2 (08:27→12:30)
[2022-10-20] MEDS: CALCITRIOL 0.25 MCG CAP (S0169) PO SCH (08:28)
[2022-10-20] MEDS: MAGNESIUM OXIDE 400MG TAB (MAG-OX) PO SCH (08:28)
[2022-10-20] MEDS: LOSARTAN 50MG TABLET PO SCH (08:30)
[2022-10-20] MEDS: NIFEdipine 30MG XL TAB PO SCH (08:30)
[2022-10-20] MEDS: CARVedilol 12.5 MG TAB PO SCH (08:31)
[2022-10-20 11:21] VITALS: BP 142/81
[2022-10-20] MEDS ORDERED: VANC-7 IP (13:45)
[2022-10-20 14:00] VITALS: BP 121/59; TEMP 97.7; O2SAT 96
[2022-10-20] MEDS ORDERED: VANCOMYCIN 1000MG/20ML VIAL IP ONE (22:00)
== END 2022-10-20 15:22 | disposition home or self-care (01) | DRG 919 ==
LOC: M ED 15:54 → M ED INP 23:44 → M PCU 10-18 01:17 → M MSPAV 10-19 23:31
PROVIDERS: ADMIT Family Medicine; ATTEND Student in an Organized Health Care Education/Training Program
PROC: 5A1D70Z Performance of Urinary Filtration, Intermittent, Less than 6 Hours Per Day (ICD-10-PCS; principal; 2022-10-19)
DX: T85.71XA Infection and inflammatory reaction due to peritoneal dialysis catheter, initial encounter (principal); A41.9 Sepsis, unspecified organism; N18.6 End stage renal disease; K65.9 Peritonitis, unspecified; I12.0 Hypertensive chronic kidney disease with stage 5 chronic kidney disease or end stage renal disease; I16.9 Hypertensive crisis, unspecified; E11.42 Type 2 diabetes mellitus with diabetic polyneuropathy; E11.22 Type 2 diabetes mellitus with diabetic chronic kidney disease; I48.0 Paroxysmal atrial fibrillation; E87.6 Hypokalemia; D63.1 Anemia in chronic kidney disease; E11.43 Type 2 diabetes mellitus with diabetic autonomic (poly)neuropathy; E83.42 Hypomagnesemia; R19.7 Diarrhea, unspecified; Z79.4 Long term (current) use of insulin; Z79.890 Hormone replacement therapy; Z79.899 Other long term (current) drug therapy; Z20.822 Contact with and (suspected) exposure to COVID-19; Z99.2 Dependence on renal dialysis; E11.649 Type 2 diabetes mellitus with hypoglycemia without coma; K21.9 Gastro-esophageal reflux disease without esophagitis

== ENCOUNTER 2022-11-10 19:30 | Inpatient (IN) | payer OTHER ==
[~2022-11-10] VITALS: Ht 172.7 cm; Wt 76.8 kg
[~2022-11-10 19:30] MED LIST changes: +AMIT50TA PO; +CLON0.3D8 TOP; +METO5TAB2 PO; +OXYB5TAB10 PO; +PANT40TA29 PO; +SENN-122 PO; +VANC-7 IP
[2022-11-10 20:26] LABS: BASO % 0.2 % (0.0-1.0); HEMOGLOBIN 9.9 g/dl (13.5-17.5); LYMPH # 0.5 10^3/uL (1.5-5.0); LYMPH % 2.8 % (24.0-44.0); MEAN CORPUSCULAR HEMOGLOBIN 29.6 pg (27.0-33.0); MEAN CORPUSCULAR HGB CONC 34.1 g/dl (32.0-36.5); MEAN CORPUSCULAR VOLUME 86.6 fl (80.0-96.0); MONO % 5.1 % (2.0-8.0); NEUTROPHILS # 17.8 10^3/uL (1.5-8.5); NEUTROPHILS % 91.3 % (36.0-66.0); PLATELET COUNT, AUTOMATED 285 10^3/uL (150-450); RED BLOOD COUNT 3.35 10^6/uL (4.30-6.10); WHITE BLOOD COUNT 19.5 10^3/uL (4.0-10.0)
[2022-11-10 20:42] LABS: LIPASE 21 U/L (12-53)
[2022-11-10 20:50] LABS: ALBUMIN 2.6 G/DL (3.2-5.2); ALKALINE PHOSPHATASE 61 U/L (46-116); ALT/SGPT 18 U/L (7.0-40); AST/SGOT 27 U/L (<34); BILIRUBIN,DIRECT < 0.1 MG/DL (<0.4); BILIRUBIN,TOTAL 0.2 MG/DL (0.3-1.2); TOTAL PROTEIN 5.5 G/DL (5.7-8.2)
[2022-11-10] MEDS ORDERED: ONDANSETRON 4MG 2ML VIAL As Ordered ONE (21:24)
[2022-11-10] MEDS ORDERED: ONDANSETRON 4MG 2ML VIAL IV ONE (21:25)
[2022-11-10] MEDS ORDERED: KCL 10MEQ/100ML SWI (KRUN) 10 MEQ in IV 1 EA IV ONE ×4 (21:35)
[2022-11-10] MEDS ORDERED: MORPHINE 2 MG/ML 1ML VIAL IV ONE (21:50)
[2022-11-10] MEDS ORDERED: PROMETHAZINE 25MG/ML 1ML VIAL IV ONE (22:05)
[2022-11-10] MEDS ORDERED: PIPERACILLIN/TAZOBACTAM SOD 4.5 GM in D5W MINI-BAG PLUS 50 ML IV ONE (23:05)
[2022-11-10] MEDS ORDERED: VANCOMYCIN HCL 1,000 MG in IV FLUID PLACE HOLDER 1 EA IV ONE (23:05)
[2022-11-10] MEDS ORDERED: KCL 20MEQ in NS 1000ML 1,000 ML IV SCH (23:10)
[2022-11-10] MEDS ORDERED: POTASSIUM CHLORIDE 10% LIQ 20MEQ/15ML UDC PO ONE (23:25)
[2022-11-10 23:26] LABS: APPEARANCE, BODY FLUID CLEAR (CLEAR); PERITONEAL FL COLOR COLORLESS (COLORLESS); SOURCE, BODY FLUID PERITONEAL
[2022-11-11] VITALS (13 sets, daily range): BP systolic 136–240; BP diastolic 80–108; TEMP 97.1–98.4; O2SAT 93–98
[2022-11-11] MEDS ORDERED: hydrALAZINE 20MG/ML 1ML VIAL IV STA (00:02)
[2022-11-11] MEDS ORDERED: PANTOPRAZOLE 40MG VIAL IV ONE (00:45)
[2022-11-11] MEDS ORDERED: ACETAMINOPHEN TAB 650MG DOSE (2X325MG) PO PRN (01:00)
[2022-11-11] MEDS ORDERED: MAALOX 30 ML SUSP *UDC PO PRN (01:00)
[2022-11-11] MEDS ORDERED: VANCOMYCIN HCL 1,000 MG in IV FLUID PLACE HOLDER 1 EA IV SCH (01:00)
[2022-11-11] MEDS ORDERED: MOM 30ML SUSPENSION UDC PO PRN (01:00)
[2022-11-11] MEDS ORDERED: VANCOMYCIN HCL 750 MG, VIAL MATE ADAPTER 1 EACH in D5W 250 ML IV ONE ×4 (01:00)
[2022-11-11] MEDS ORDERED: MORPHINE 2 MG/ML 1ML VIAL IV ONE (01:15)
[2022-11-11] MEDS ORDERED: hydrALAZINE 20MG/ML 1ML VIAL IV ONE (01:45)
[2022-11-11] MEDS ORDERED: NEPR1LIQ2 PO (02:37)
[2022-11-11] MEDS ORDERED: SODI325T9 PO (02:37)
[2022-11-11] MEDS ORDERED: GENT1OI TOP (02:37)
[2022-11-11] MEDS ORDERED: ERGO500029 PO (02:37)
[2022-11-11] MEDS ORDERED: HOME MED LIST COMPLETE! XX SCH (02:40)
[2022-11-11] MEDS ORDERED: DEXTROSE 50% 50ML SYRINGE IV PRN ×2 (02:55→11:40)
[2022-11-11] MEDS ORDERED: GLUCAGON INJ 1MG VIAL SC PRN ×2 (02:55→11:40)
[2022-11-11] MEDS ORDERED: GLUCOSE 4GM CHEW TABLET PO PRN ×2 (02:55→11:40)
[2022-11-11] MEDS ORDERED: METOPROLOL 5 MG/5 ML VIAL IV STA (03:00)
[2022-11-11] MEDS ORDERED: SCOPOLAMINE 1MG TRANSDERMAL PATCH TOP ONE (03:15)
[2022-11-11] MEDS ORDERED: LABETALOL 100MG/20ML VIAL IV STA (03:50)
[2022-11-11] MEDS ORDERED: PROCHLORPERAZINE 10MG 2ML VIAL IV PRN (05:00)
[2022-11-11] MEDS: HEPARIN SOD (PORCINE) 5000UNITS/ML 1ML VIAL/SYRINGE SC SCH ×3 (05:24→21:47)
[2022-11-11] MEDS ORDERED: INSULIN LISPRO (NovoLOG) PER UNIT SC SCH ×2 (07:30→21:00)
[2022-11-11] MEDS ORDERED: hydrALAZINE 20MG/ML 1ML VIAL IV PRN ×3 (07:40→14:55)
[2022-11-11 07:57] LABS: HEMATOCRIT 28.3 % (42.0-52.0); HEMOGLOBIN 9.4 g/dl (13.5-17.5); MEAN CORPUSCULAR HGB CONC 33.2 g/dl (32.0-36.5); MEAN CORPUSCULAR VOLUME 90.4 fl (80.0-96.0); PLATELET COUNT, AUTOMATED 257 10^3/uL (150-450); RED BLOOD COUNT 3.13 10^6/uL (4.30-6.10)
[2022-11-11] MEDS: SUCROFERRIC OXYHYDROXIDE 500MG CHEW TAB (VELPHORO) PO SCH ×2 (08:00→11:48)
[2022-11-11] MEDS ORDERED: SUCROFERRIC OXYHYDROXIDE 500MG CHEW TAB (VELPHORO) PO SCH (08:00)
[2022-11-11 08:28] LABS: ALBUMIN 2.4 G/DL (3.2-5.2); CALCIUM LEVEL 8.4 MG/DL (8.5-10.1); CREATININE FOR GFR 11.17 MG/DL (0.70-1.30); GLOMERULAR FILTRATION RATE 5.2 (>60); POTASSIUM SERUM 3.1 MMOL/L (3.5-5.1)
[2022-11-11] MEDS ORDERED: KCL 20MEQ in NS 1000ML 1,000 ML IV SCH (08:40)
[2022-11-11] MEDS ORDERED: POTASSIUM CHLORIDE 10MEQ SR TABLET PO ONE (08:40)
[2022-11-11] MEDS: CARVedilol 12.5 MG TAB PO SCH ×4 (09:00→20:08)
[2022-11-11] MEDS: NIFEdipine 30MG XL TAB PO SCH (09:00)
[2022-11-11] MEDS: oxyBUTYnin 5 MG TAB PO SCH ×2 (09:00→09:03)
[2022-11-11] MEDS: LOSARTAN 50MG TABLET PO SCH ×3 (09:00→14:41)
[2022-11-11] MEDS: PANTOPRAZOLE 40MG VIAL IV SCH ×2 (09:02→20:08)
[2022-11-11 09:12] LABS: BASO % 0.2 % (0.0-1.0); LYMPH # 0.9 10^3/uL (1.5-5.0); LYMPH % 4.7 % (24.0-44.0); MONO % 7.8 % (2.0-8.0); NEUTROPHILS # 17.1 10^3/uL (1.5-8.5); NEUTROPHILS % 86.6 % (36.0-66.0)
[2022-11-11] MEDS: PIPERACILLIN/TAZOBACTAM SOD 2.25 GM in D5W MINI-BAG PLUS 50 ML IV SCH ×3 (09:22→23:24)
[2022-11-11 09:47] LABS: MONO # 1.5 10^3/uL (0.0-0.8)
[2022-11-11] MEDS ORDERED: HEPARIN SOD (PORCINE) 5000UNITS/ML 1ML VIAL/SYRINGE PD ONE (10:25)
[2022-11-11] MEDS ORDERED: ISOVUE-370 76% 100ML VIAL As Ordered ONE (10:52)
[2022-11-11] MEDS ORDERED: VANCOMYCIN INTERMITTENT/PULSE DOSING BY CLINICAL PHARMACIST PER DOSING PROTOCOL XX SCH (11:00)
[2022-11-11] MEDS ORDERED: METOCLOPRAMIDE INJ 10MG/2ML VIAL IV PRN (11:40)
[2022-11-11] MEDS: KCL 20MEQ IN D5/NS 1000ML 1,000 ML IV SCH (12:16)
[2022-11-11 12:22] LABS: MAGNESIUM LEVEL 1.5 MG/DL (1.8-2.4)
[2022-11-11] MEDS: INSULIN LISPRO (NovoLOG) PER UNIT SC SCH ×3 (12:27→23:24)
[2022-11-11 12:31] LABS: PROCALCITONIN 0.24 ng/ml
[2022-11-11] MEDS ORDERED: VARIBAR NECTAR 40% w/v 240ML SUSP BTL As Ordered ONE (13:21)
[2022-11-11] MEDS ORDERED: VARIBAR PUDDING 40% w/v 230ML TUBE As Ordered ONE (13:21)
[2022-11-11] MEDS ORDERED: BARIUM SULFATE 700 MG TABLET (E-Z-DISK) As Ordered ONE (13:22)
[2022-11-11] MEDS ORDERED: E-Z-PAQUE 96% w/w SUSP 176GM BTL As Ordered ONE (13:22)
[2022-11-11 13:49] LABS: APPEARANCE, BODY FLUID HAZY (CLEAR); PERITONEAL DIALYSATE FL COLOR COLORLESS (COLORLESS); SOURCE, BODY FLUID PERITONEAL DIALYSATE
[2022-11-11] MEDS ORDERED: LIDOCAINE 1% MDV 20ML VIAL As Ordered ONE (13:51)
[2022-11-11] MEDS ORDERED: VANCOMYCIN HCL 1,000 MG, VIAL MATE ADAPTER 1 EACH in D5W 250 ML IV SCH (16:00)
[2022-11-11] MEDS: SODIUM CHLORIDE 0.9% INJ 10 ML SYR IV SCH (18:18)
[2022-11-11] MEDS: CLOTRIMAZOLE 10 MG TROCHE PO SCH (20:08)
[2022-11-11] MEDS ORDERED: AMITRIPTYLINE 50 MG TAB PO SCH (21:00)
[2022-11-11] MEDS: **hydrALAZINE** 50 MG TAB PO SCH (21:47)
[2022-11-12] VITALS: BP 160/82; TEMP 98.4; O2SAT 94
[2022-11-12] MEDS: KCL 20MEQ IN D5/NS 1000ML 1,000 ML IV SCH ×2 (01:23→11:16)
[2022-11-12 04:00] VITALS: BP 162/84; TEMP 98.2; O2SAT 96
[2022-11-12] MEDS: INSULIN LISPRO (NovoLOG) PER UNIT SC SCH ×4 (05:46→23:58)
[2022-11-12] MEDS: **hydrALAZINE** 50 MG TAB PO SCH ×3 (05:47→21:16)
[2022-11-12] MEDS: SODIUM CHLORIDE 0.9% INJ 10 ML SYR IV SCH ×2 (05:48→17:53)
[2022-11-12] MEDS: CLOTRIMAZOLE 10 MG TROCHE PO SCH ×5 (05:48→21:15)
[2022-11-12] MEDS: HEPARIN SOD (PORCINE) 5000UNITS/ML 1ML VIAL/SYRINGE SC SCH ×3 (05:48→21:15)
[2022-11-12 07:29] VITALS: BP 134/62; TEMP 99; O2SAT 91
[2022-11-12] MEDS: PIPERACILLIN/TAZOBACTAM SOD 2.25 GM in D5W MINI-BAG PLUS 50 ML IV SCH ×3 (08:12→23:53)
[2022-11-12] MEDS: PANTOPRAZOLE 40MG VIAL IV SCH ×2 (08:12→21:15)
[2022-11-12] MEDS: LOSARTAN 50MG TABLET PO SCH (08:13)
[2022-11-12] MEDS: CARVedilol 12.5 MG TAB PO SCH ×2 (08:13→21:16)
[2022-11-12 08:45] LABS: BASO % 0.3 % (0.0-1.0); EOS # 0.2 10^3/uL (0.0-0.5); EOS % 1.5 % (0.0-3.0); HEMATOCRIT 23.2 % (42.0-52.0); HEMOGLOBIN 7.5 g/dl (13.5-17.5); LYMPH # 0.9 10^3/uL (1.5-5.0); LYMPH % 8.8 % (24.0-44.0); MEAN CORPUSCULAR HEMOGLOBIN 29.4 pg (27.0-33.0); MEAN CORPUSCULAR HGB CONC 32.3 g/dl (32.0-36.5); MONO # 0.9 10^3/uL (0.0-0.8); MONO % 9.7 % (2.0-8.0); NEUTROPHILS # 7.7 10^3/uL (1.5-8.5); NEUTROPHILS % 79.2 % (36.0-66.0); PLATELET COUNT, AUTOMATED 179 10^3/uL (150-450); RED BLOOD COUNT 2.55 10^6/uL (4.30-6.10); WHITE BLOOD COUNT 9.7 10^3/uL (4.0-10.0)
[2022-11-12] MEDS ORDERED: DARBEPOETIN 100MCG/0.5ML *DIALYSIS* SYRINGE SC SCH (09:00)
[2022-11-12 09:27] LABS: CALCIUM LEVEL 7.4 MG/DL (8.5-10.1); CREATININE FOR GFR 10.33 MG/DL (0.70-1.30); GLOMERULAR FILTRATION RATE 5.7 (>60); MAGNESIUM LEVEL 1.4 MG/DL (1.8-2.4)
[2022-11-12] MEDS: MAG SULF 1GM/100ML (MAG RUN) 1 GM in IV 1 EA IV SCH ×3 (11:15→13:47)
[2022-11-12] MEDS: SUCRALFATE SUSP 1GM/10ML UD PO SCH ×3 (11:15→23:52)
[2022-11-12 12:11] VITALS: BP 141/61; TEMP 97.8; O2SAT 92
[2022-11-12 12:16] LABS: PERCENT SATURATION 79.4 % (19.7-50.0)
[2022-11-12 14:23] VITALS: BP 121/56; TEMP 98.1; O2SAT 96
[2022-11-12] MEDS: SODIUM CHLORIDE 0.9% INJ 10 ML SYR IV PRN (17:53)
[2022-11-12 20:00] VITALS: BP 165/70; TEMP 97.8; O2SAT 96
[2022-11-13] VITALS: BP 120/60; TEMP 97.6; O2SAT 94
[2022-11-13] MEDS: KCL 20MEQ IN D5/NS 1000ML 1,000 ML IV SCH (02:27)
[2022-11-13 04:00] VITALS: BP 135/62; TEMP 98.1; O2SAT 97
[2022-11-13] MEDS: SODIUM CHLORIDE 0.9% INJ 10 ML SYR IV SCH ×2 (05:59→18:00)
[2022-11-13] MEDS: SUCRALFATE SUSP 1GM/10ML UD PO SCH ×4 (06:08→23:47)
[2022-11-13] MEDS: CLOTRIMAZOLE 10 MG TROCHE PO SCH ×5 (06:09→21:04)
[2022-11-13] MEDS: **hydrALAZINE** 50 MG TAB PO SCH ×3 (06:09→21:26)
[2022-11-13] MEDS: HEPARIN SOD (PORCINE) 5000UNITS/ML 1ML VIAL/SYRINGE SC SCH ×3 (06:10→21:26)
[2022-11-13] MEDS: INSULIN LISPRO (NovoLOG) PER UNIT SC SCH ×3 (06:21→18:02)
[2022-11-13 06:40] LABS: BASO % 0.5 % (0.0-1.0); EOS # 0.6 10^3/uL (0.0-0.5); EOS % 7.1 % (0.0-3.0); HEMATOCRIT 23.6 % (42.0-52.0); HEMOGLOBIN 7.6 g/dl (13.5-17.5); LYMPH % 12.9 % (24.0-44.0); MEAN CORPUSCULAR HEMOGLOBIN 29.5 pg (27.0-33.0); MEAN CORPUSCULAR HGB CONC 32.2 g/dl (32.0-36.5); MEAN CORPUSCULAR VOLUME 91.5 fl (80.0-96.0); MONO # 0.6 10^3/uL (0.0-0.8); MONO % 8.1 % (2.0-8.0); NEUTROPHILS # 5.5 10^3/uL (1.5-8.5); PLATELET COUNT, AUTOMATED 200 10^3/uL (150-450); RED BLOOD COUNT 2.58 10^6/uL (4.30-6.10); WHITE BLOOD COUNT 7.8 10^3/uL (4.0-10.0)
[2022-11-13 07:10] LABS: C REACTIVE PROTEIN QUANTITATIV 3.7 MG/DL (<1.0)
[2022-11-13 07:18] LABS: CALCIUM LEVEL 7.6 MG/DL (8.5-10.1); CREATININE FOR GFR 9.72 MG/DL (0.70-1.30); GLOMERULAR FILTRATION RATE 6.1 (>60); MAGNESIUM LEVEL 1.9 MG/DL (1.8-2.4); POTASSIUM SERUM 3.1 MMOL/L (3.5-5.1)
[2022-11-13 07:46] VITALS: BP 130/63; TEMP 97.5; O2SAT 98
[2022-11-13] MEDS: PIPERACILLIN/TAZOBACTAM SOD 2.25 GM in D5W MINI-BAG PLUS 50 ML IV SCH (08:20)
[2022-11-13] MEDS: PANTOPRAZOLE 40MG VIAL IV SCH ×2 (08:20→21:04)
[2022-11-13] MEDS: LOSARTAN 50MG TABLET PO SCH (08:21)
[2022-11-13] MEDS: CARVedilol 12.5 MG TAB PO SCH ×2 (08:22→21:04)
[2022-11-13] MEDS: POTASSIUM CHLORIDE IV SCH ×4 (10:00→21:20)
[2022-11-13 11:45] VITALS: BP 143/62; TEMP 97.2; O2SAT 100
[2022-11-13] MEDS ORDERED: GLUCOSE 4GM CHEW TABLET PO PRN (14:00)
[2022-11-13] MEDS ORDERED: DEXTROSE 50% 50ML SYRINGE IV PRN (14:00)
[2022-11-13] MEDS ORDERED: GLUCAGON INJ 1MG VIAL SC PRN (14:00)
[2022-11-13 19:58] VITALS: BP 136/65; TEMP 97.5; O2SAT 99
[2022-11-13] MEDS ORDERED: INSULIN LISPRO (NovoLOG) PER UNIT SC SCH (21:00)
[2022-11-14 03:46] VITALS: BP 129/60; TEMP 97.3; O2SAT 97
[2022-11-14] MEDS: HEPARIN SOD (PORCINE) 5000UNITS/ML 1ML VIAL/SYRINGE SC SCH ×2 (05:57→12:49)
[2022-11-14] MEDS: CLOTRIMAZOLE 10 MG TROCHE PO SCH ×3 (05:57→12:49)
[2022-11-14] MEDS: SUCRALFATE SUSP 1GM/10ML UD PO SCH (05:58)
[2022-11-14] MEDS: **hydrALAZINE** 50 MG TAB PO SCH ×2 (05:58→12:50)
[2022-11-14] MEDS: SODIUM CHLORIDE 0.9% INJ 10 ML SYR IV SCH (05:59)
[2022-11-14] MEDS: SUCRALFATE 1 GM TAB PO SCH ×3 (06:00→12:50)
[2022-11-14 07:46] LABS: BASO # 0.1 10^3/uL (0.0-0.2); EOS # 0.8 10^3/uL (0.0-0.5); EOS % 12.9 % (0.0-3.0); HEMATOCRIT 25.2 % (42.0-52.0); HEMOGLOBIN 8.2 g/dl (13.5-17.5); LYMPH % 15.8 % (24.0-44.0); MEAN CORPUSCULAR HEMOGLOBIN 29.4 pg (27.0-33.0); MEAN CORPUSCULAR HGB CONC 32.5 g/dl (32.0-36.5); MEAN CORPUSCULAR VOLUME 90.3 fl (80.0-96.0); MONO # 0.6 10^3/uL (0.0-0.8); MONO % 9.6 % (2.0-8.0); NEUTROPHILS # 3.7 10^3/uL (1.5-8.5); NEUTROPHILS % 60.4 % (36.0-66.0); PLATELET COUNT, AUTOMATED 214 10^3/uL (150-450); RED BLOOD COUNT 2.79 10^6/uL (4.30-6.10); WHITE BLOOD COUNT 6.1 10^3/uL (4.0-10.0)
[2022-11-14 08:18] LABS: CREATININE FOR GFR 9.21 MG/DL (0.70-1.30); GLOMERULAR FILTRATION RATE 6.5 (>60); POTASSIUM SERUM 3.6 MMOL/L (3.5-5.1)
[2022-11-14] MEDS: PANTOPRAZOLE 40MG VIAL IV SCH (09:44)
[2022-11-14] MEDS: INSULIN LISPRO (NovoLOG) PER UNIT SC SCH ×2 (09:45→12:49)
[2022-11-14] MEDS: CARVedilol 12.5 MG TAB PO SCH (09:46)
[2022-11-14] MEDS: LOSARTAN 50MG TABLET PO SCH (09:53)
[2022-11-14] MEDS: SODIUM CHLORIDE 0.9% INJ 10 ML SYR IV PRN (10:23)
[2022-11-14] MEDS ORDERED: SUCR1TA PO ×2 (11:47→11:54)
[2022-11-14 11:48] VITALS: BP 141/63; TEMP 97; O2SAT 99
[2022-11-14] MEDS ORDERED: CLOT10TR PO (11:54)
[2022-11-14 12:50] VITALS: BP 141/63
== END 2022-11-14 14:55 | disposition home or self-care (01) | DRG 391 ==
LOC: M ED 19:30 → M ED INP 11-11 00:56 → ENRESERV 11-11 01:37 → M PCU 11-11 02:29
PROVIDERS: ADMIT Internal Medicine; ATTEND Internal Medicine
PROC: 05HB33Z Insertion of Infusion Device into Right Basilic Vein, Percutaneous Approach (ICD-10-PCS; 2022-11-11)
PROC: 0CJS8ZZ Inspection of Larynx, Via Natural or Artificial Opening Endoscopic (ICD-10-PCS; principal; 2022-11-11 13:00)
DX: R11.2 Nausea with vomiting, unspecified (principal); N18.6 End stage renal disease; I12.0 Hypertensive chronic kidney disease with stage 5 chronic kidney disease or end stage renal disease; E87.3 Alkalosis; I16.9 Hypertensive crisis, unspecified; R10.9 Unspecified abdominal pain; E87.6 Hypokalemia; E11.22 Type 2 diabetes mellitus with diabetic chronic kidney disease; E11.43 Type 2 diabetes mellitus with diabetic autonomic (poly)neuropathy; D63.8 Anemia in other chronic diseases classified elsewhere; E21.1 Secondary hyperparathyroidism, not elsewhere classified; K21.9 Gastro-esophageal reflux disease without esophagitis; J02.9 Acute pharyngitis, unspecified; J04.0 Acute laryngitis; R13.12 Dysphagia, oropharyngeal phase; R13.14 Dysphagia, pharyngoesophageal phase; K31.84 Gastroparesis; E83.42 Hypomagnesemia; Z79.899 Other long term (current) drug therapy; E86.0 Dehydration

== ENCOUNTER 2022-12-11 14:47 | Inpatient (IN) | payer OTHER ==
[~2022-12-11] VITALS: Ht 172.7 cm; Wt 83.5 kg
[~2022-12-11 14:47] MED LIST changes: -CATA0.2D; +CLON1PAT4; +CLOT10TR PO; +ERGO500029 PO; +GENT1OI TOP; +NEPR1LIQ2 PO; -OXYB5TAB10 PO; +OXYB5TAB11 PO; +SODI325T9 PO; +SUCR1TA PO
[2022-12-11 15:41] LABS: BASO % 0.3 % (0.0-1.0); EOS % 0.2 % (0.0-3.0); HEMOGLOBIN 10.8 g/dl (13.5-17.5); LYMPH # 0.7 10^3/uL (1.5-5.0); LYMPH % 7.3 % (24.0-44.0); MEAN CORPUSCULAR HGB CONC 34.8 g/dl (32.0-36.5); MEAN CORPUSCULAR VOLUME 83.3 fl (80.0-96.0); MONO # 0.4 10^3/uL (0.0-0.8); NEUTROPHILS # 7.9 10^3/uL (1.5-8.5); NEUTROPHILS % 87.8 % (36.0-66.0); PLATELET COUNT, AUTOMATED 216 10^3/uL (150-450); RED BLOOD COUNT 3.72 10^6/uL (4.30-6.10)
[2022-12-11] MEDS ORDERED: METOCLOPRAMIDE INJ 10MG/2ML VIAL IV ONE (15:45)
[2022-12-11] MEDS ORDERED: SEVE800T3 PO (15:55)
[2022-12-11] MEDS ORDERED: LOSARTAN 50MG TABLET PO ONE (16:00)
[2022-12-11] MEDS ORDERED: NIFEdipine 30MG XL TAB PO ONE (16:00)
[2022-12-11] MEDS ORDERED: CARVedilol 12.5 MG TAB PO ONE (16:00)
[2022-12-11 16:14] LABS: ALBUMIN 2.9 G/DL (3.2-5.2); ALKALINE PHOSPHATASE 71 U/L (46-116); ALT/SGPT 25 U/L (7.0-40); AST/SGOT 41 U/L (<34); BILIRUBIN,DIRECT 0.1 MG/DL (<0.4); BILIRUBIN,TOTAL 0.4 MG/DL (0.3-1.2); BLOOD UREA NITROGEN 50 MG/DL (9-23); CALCIUM LEVEL 9.4 MG/DL (8.5-10.1); CARBON DIOXIDE LEVEL 34 MMOL/L (20-31); CHLORIDE LEVEL 96 MMOL/L (98-107); CREATININE FOR GFR 9.61 MG/DL (0.70-1.30); GLOMERULAR FILTRATION RATE 6.2 (>60); GLUCOSE, FASTING 456 MG/DL (60-100); MAGNESIUM LEVEL 1.6 MG/DL (1.8-2.4); POTASSIUM SERUM 3.2 MMOL/L (3.5-5.1); SODIUM LEVEL 139 MMOL/L (136-145); TOTAL PROTEIN 5.8 G/DL (5.7-8.2)
[2022-12-11] MEDS ORDERED: KCL 10MEQ/100ML SWI (KRUN) 10 MEQ in IV 1 EA IV ONE (16:45)
[2022-12-11] MEDS ORDERED: MAG SULF 1GM/100ML (MAG RUN) 1 GM in IV 1 EA IV ONE (16:45)
[2022-12-11] MEDS ORDERED: ACETAMINOPHEN TAB 650MG DOSE (2X325MG) PO PRN (17:35)
[2022-12-11] MEDS ORDERED: hydrALAZINE 20MG/ML 1ML VIAL IV STA (17:38)
[2022-12-11] MEDS ORDERED: SCOPOLAMINE 1MG TRANSDERMAL PATCH TOP SCH (18:00)
[2022-12-11] MEDS ORDERED: SUCR1TAB56 PO (18:23)
[2022-12-11] MEDS ORDERED: CLON0.3D8 TOP (18:23)
[2022-12-11] MEDS ORDERED: HOME MED LIST COMPLETE! XX SCH (18:25)
[2022-12-11] MEDS ORDERED: GLUCAGON INJ 1MG VIAL SC PRN (18:40)
[2022-12-11] MEDS ORDERED: DEXTROSE 50% 50ML SYRINGE IV PRN (18:40)
[2022-12-11] MEDS ORDERED: GLUCOSE 4GM CHEW TABLET PO PRN (18:40)
[2022-12-11 18:56] LABS: C REACTIVE PROTEIN QUANTITATIV < 0.40 MG/DL (<1.0)
[2022-12-11 19:04] LABS: PROCALCITONIN 0.22 ng/ml
[2022-12-11] MEDS ORDERED: NS 1,000 ML IV SCH (19:20)
[2022-12-11 19:36] LABS: ERYTHROCYTE SEDIMENTATION RATE 11 mm/hr (0-15)
[2022-12-11] MEDS: INSULIN LISPRO (NovoLOG) PER UNIT SC SCH ×2 (20:00→22:58)
[2022-12-11] MEDS ORDERED: METOCLOPRAMIDE INJ 10MG/2ML VIAL IV SCH (21:00)
[2022-12-11] MEDS ORDERED: hydrALAZINE 20MG/ML 1ML VIAL IV SCH (21:00)
[2022-12-11] MEDS ORDERED: hydrALAZINE 20MG/ML 1ML VIAL IV PRN (21:00)
[2022-12-11] MEDS: HEPARIN SOD (PORCINE) 5000UNITS/ML 1ML VIAL/SYRINGE SC SCH (22:14)
[2022-12-11 22:32] VITALS: BP 172/108; TEMP 97.3; O2SAT 97
[2022-12-11] MEDS: METOCLOPRAMIDE INJ 10MG/2ML VIAL IV SCH (23:40)
[2022-12-12] VITALS (7 sets, daily range): BP systolic 154–234; BP diastolic 80–110; TEMP 97–99.1; O2SAT 97–100
[2022-12-12] MEDS: INSULIN LISPRO (NovoLOG) PER UNIT SC SCH ×4 (03:46→17:13)
[2022-12-12] MEDS: HEPARIN SOD (PORCINE) 5000UNITS/ML 1ML VIAL/SYRINGE SC SCH ×3 (05:28→21:02)
[2022-12-12] MEDS ORDERED: MIRALAX *UNIT DOSE* 17GM PACKET PO PRN (07:15)
[2022-12-12] MEDS ORDERED: SENOKOT S TAB PO PRN (07:15)
[2022-12-12] MEDS ORDERED: GENTAMICIN SULFATE 0.1% OINT 15GM TOP SCH (07:15)
[2022-12-12 07:21] LABS: BASO # 0.1 10^3/uL (0.0-0.2); BASO % 0.6 % (0.0-1.0); EOS # 0.1 10^3/uL (0.0-0.5); EOS % 1.7 % (0.0-3.0); HEMATOCRIT 28.7 % (42.0-52.0); HEMOGLOBIN 9.8 g/dl (13.5-17.5); LYMPH # 1.2 10^3/uL (1.5-5.0); LYMPH % 15.5 % (24.0-44.0); MEAN CORPUSCULAR HEMOGLOBIN 28.4 pg (27.0-33.0); MEAN CORPUSCULAR HGB CONC 34.1 g/dl (32.0-36.5); MEAN CORPUSCULAR VOLUME 83.2 fl (80.0-96.0); MONO # 0.7 10^3/uL (0.0-0.8); MONO % 9.2 % (2.0-8.0); NEUTROPHILS # 5.7 10^3/uL (1.5-8.5); NEUTROPHILS % 72.6 % (36.0-66.0); PLATELET COUNT, AUTOMATED 180 10^3/uL (150-450); RED BLOOD COUNT 3.45 10^6/uL (4.30-6.10); WHITE BLOOD COUNT 7.8 10^3/uL (4.0-10.0)
[2022-12-12 07:51] LABS: ALBUMIN 2.3 G/DL (3.2-5.2); CALCIUM LEVEL 8.8 MG/DL (8.5-10.1); CREATININE FOR GFR 10.64 MG/DL (0.70-1.30); GLOMERULAR FILTRATION RATE 5.5 (>60); MAGNESIUM LEVEL 1.7 MG/DL (1.8-2.4); PHOSPHORUS LEVEL 3.4 MG/DL (2.5-4.9); POTASSIUM SERUM 2.6 MMOL/L (3.5-5.1)
[2022-12-12] MEDS: SUCROFERRIC OXYHYDROXIDE 500MG CHEW TAB (VELPHORO) PO SCH ×3 (08:00→17:13)
[2022-12-12] MEDS: (RENVELA) SEVELAMER **CARBONate** 800 MG TAB PO SCH ×4 (08:00→17:13)
[2022-12-12] MEDS: METOCLOPRAMIDE INJ 10MG/2ML VIAL IV SCH ×3 (08:11→21:03)
[2022-12-12] MEDS: oxyBUTYnin 5 MG TAB PO SCH ×2 (08:12→21:07)
[2022-12-12] MEDS: PANTOPRAZOLE 40MG TAB (PROTONIX) PO SCH ×2 (08:12→21:06)
[2022-12-12] MEDS: SUCRALFATE 1 GM TAB PO SCH (08:12)
[2022-12-12] MEDS: CALCITRIOL 0.25 MCG CAP (S0169) PO SCH ×2 (08:12→21:04)
[2022-12-12] MEDS: NIFEdipine 30MG XL TAB PO SCH (08:12)
[2022-12-12] MEDS: CARVedilol 12.5 MG TAB PO SCH ×2 (08:13→21:06)
[2022-12-12] MEDS ORDERED: POTASSIUM CHLORIDE 10MEQ SR TABLET PO ONE (09:00)
[2022-12-12] MEDS: CAPTOpril 6.25 MG PER 1/2 TABLET PO SCH ×2 (09:32→15:50)
[2022-12-12] MEDS: MAG SULF 1GM/100ML (MAG RUN) 1 GM in IV 1 EA IV SCH ×2 (09:33→10:39)
[2022-12-12] MEDS ORDERED: POTASSIUM CHLORIDE XX SCH (11:25)
[2022-12-12] MEDS ORDERED: POTASSIUM CHLORIDE IV SCH (14:00)
[2022-12-12] MEDS: POTASSIUM CHLORIDE IV SCH ×2 (18:03→22:00)
[2022-12-12] MEDS ORDERED: LOSARTAN 50MG TABLET PO SCH (21:00)
[2022-12-12] MEDS ORDERED: AMITRIPTYLINE 50 MG TAB PO SCH (21:00)
[2022-12-12] MEDS ORDERED: INSULIN LISPRO (NovoLOG) PER UNIT SC SCH (21:00)
[2022-12-13] VITALS: BP 136/88; TEMP 98.2; O2SAT 98
[2022-12-13 03:58] VITALS: BP 164/96; TEMP 98.2; O2SAT 100
[2022-12-13 05:08] LABS: BASO % 0.7 % (0.0-1.0); EOS # 0.2 10^3/uL (0.0-0.5); HEMATOCRIT 27.8 % (42.0-52.0); HEMOGLOBIN 9.3 g/dl (13.5-17.5); LYMPH # 1.4 10^3/uL (1.5-5.0); LYMPH % 24.3 % (24.0-44.0); MEAN CORPUSCULAR HEMOGLOBIN 28.3 pg (27.0-33.0); MEAN CORPUSCULAR HGB CONC 33.5 g/dl (32.0-36.5); MEAN CORPUSCULAR VOLUME 84.5 fl (80.0-96.0); MONO # 0.5 10^3/uL (0.0-0.8); MONO % 9.1 % (2.0-8.0); NEUTROPHILS # 3.6 10^3/uL (1.5-8.5); NEUTROPHILS % 62.4 % (36.0-66.0); PLATELET COUNT, AUTOMATED 170 10^3/uL (150-450); RED BLOOD COUNT 3.29 10^6/uL (4.30-6.10); WHITE BLOOD COUNT 5.7 10^3/uL (4.0-10.0)
[2022-12-13] MEDS: HEPARIN SOD (PORCINE) 5000UNITS/ML 1ML VIAL/SYRINGE SC SCH (05:27)
[2022-12-13 05:41] LABS: ALBUMIN 2.4 G/DL (3.2-5.2); CREATININE FOR GFR 10.46 MG/DL (0.70-1.30); GLOMERULAR FILTRATION RATE 5.6 (>60); PHOSPHORUS LEVEL 3.8 MG/DL (2.5-4.9); POTASSIUM SERUM 3.4 MMOL/L (3.5-5.1)
[2022-12-13] MEDS: POTASSIUM CHLORIDE IV SCH ×2 (06:00→10:21)
[2022-12-13 07:30] VITALS: BP 204/104; TEMP 97.2; O2SAT 99
[2022-12-13] MEDS: INSULIN LISPRO (NovoLOG) PER UNIT SC SCH ×2 (07:58→12:37)
[2022-12-13 08:00] VITALS: BP 198/104
[2022-12-13] MEDS: SUCROFERRIC OXYHYDROXIDE 500MG CHEW TAB (VELPHORO) PO SCH ×2 (08:00→12:37)
[2022-12-13] MEDS: (RENVELA) SEVELAMER **CARBONate** 800 MG TAB PO SCH ×2 (08:00→12:37)
[2022-12-13] MEDS: NIFEdipine 30MG XL TAB PO SCH (08:06)
[2022-12-13] MEDS: CALCITRIOL 0.25 MCG CAP (S0169) PO SCH (08:07)
[2022-12-13] MEDS: PANTOPRAZOLE 40MG TAB (PROTONIX) PO SCH (08:07)
[2022-12-13] MEDS: CARVedilol 12.5 MG TAB PO SCH (08:07)
[2022-12-13] MEDS: METOCLOPRAMIDE INJ 10MG/2ML VIAL IV SCH (08:08)
[2022-12-13] MEDS: oxyBUTYnin 5 MG TAB PO SCH (08:08)
[2022-12-13] MEDS: SUCRALFATE 1 GM TAB PO SCH (08:10)
[2022-12-13] MEDS ORDERED: VITAMIN D 50,000 UNITS CAPSULE (ERGOCALCIFEROL 1.25MG) PO SCH (09:00)
[2022-12-13] MEDS ORDERED: METOCLOPRAMIDE 10MG TAB PO PRN (10:40)
[2022-12-13] MEDS ORDERED: METO10TA2 PO (10:45)
[2022-12-13] MEDS ORDERED: TRAN1DIS4 TOP (10:45)
[2022-12-13] MEDS ORDERED: HYDR25TA PO (10:45)
[2022-12-13] MEDS ORDERED: **hydrALAZINE HCL** 25 MG TAB PO ONE (11:00)
[2022-12-13 11:01] VITALS: BP 204/104
[2022-12-13 12:00] VITALS: BP_SYST 178; BP_SYST 192; BP_DIAS 92; TEMP 97.3; O2SAT 96
[2022-12-13] MEDS ORDERED: **hydrALAZINE HCL** 25 MG TAB PO SCH (14:00)
== END 2022-12-13 15:33 | disposition home or self-care (01) | DRG 73 ==
LOC: M ED 14:47 → M ED INP 17:24 → M PCU 21:44
PROVIDERS: ADMIT Student in an Organized Health Care Education/Training Program; ATTEND Student in an Organized Health Care Education/Training Program
PROC: 5A1D70Z Performance of Urinary Filtration, Intermittent, Less than 6 Hours Per Day (ICD-10-PCS; principal; 2022-12-13)
DX: E10.43 Type 1 diabetes mellitus with diabetic autonomic (poly)neuropathy (principal); N18.6 End stage renal disease; I12.0 Hypertensive chronic kidney disease with stage 5 chronic kidney disease or end stage renal disease; E87.3 Alkalosis; E10.22 Type 1 diabetes mellitus with diabetic chronic kidney disease; Z99.2 Dependence on renal dialysis; K21.9 Gastro-esophageal reflux disease without esophagitis; D63.1 Anemia in chronic kidney disease; I48.91 Unspecified atrial fibrillation; K59.00 Constipation, unspecified; R13.10 Dysphagia, unspecified; E87.6 Hypokalemia; E83.42 Hypomagnesemia; N32.81 Overactive bladder; K31.84 Gastroparesis; I16.0 Hypertensive urgency; K52.9 Noninfective gastroenteritis and colitis, unspecified; E10.65 Type 1 diabetes mellitus with hyperglycemia; Z79.4 Long term (current) use of insulin; Z79.899 Other long term (current) drug therapy; Z20.822 Contact with and (suspected) exposure to COVID-19

== ENCOUNTER 2023-01-30 11:00 | Inpatient (IN) | payer OTHER ==
[~2023-01-30] VITALS: Ht 172.7 cm; Wt 75.2 kg
[~2023-01-30 11:00] MED LIST changes: +HYDR25TA PO; +METO10TA2 PO; +SUCR1TAB56 PO; +TRAN1DIS4 TOP
[2023-01-30] MEDS ORDERED: POTA1TAB23 PO (11:17)
[2023-01-30] MEDS ORDERED: NS 500 ML IV ONE (12:10)
[2023-01-30] MEDS ORDERED: MORPHINE 4 MG/ML 1ML VIAL IV ONE (12:25)
[2023-01-30] MEDS ORDERED: ONDANSETRON 4MG 2ML VIAL IV ONE ×2 (12:25→18:05)
[2023-01-30 12:28] LABS: BASO % 0.2 % (0.0-1.0); EOS # 0.1 10^3/uL (0.0-0.5); EOS % 0.5 % (0.0-3.0); HEMATOCRIT 23.7 % (42.0-52.0); LYMPH # 0.6 10^3/uL (1.5-5.0); LYMPH % 5.5 % (24.0-44.0); MEAN CORPUSCULAR HEMOGLOBIN 28.5 pg (27.0-33.0); MEAN CORPUSCULAR HGB CONC 33.8 g/dl (32.0-36.5); MEAN CORPUSCULAR VOLUME 84.3 fl (80.0-96.0); MONO # 0.9 10^3/uL (0.0-0.8); MONO % 8.2 % (2.0-8.0); NEUTROPHILS # 9.5 10^3/uL (1.5-8.5); NEUTROPHILS % 85.2 % (36.0-66.0); PLATELET COUNT, AUTOMATED 212 10^3/uL (150-450); RED BLOOD COUNT 2.81 10^6/uL (4.30-6.10); WHITE BLOOD COUNT 11.2 10^3/uL (4.0-10.0)
[2023-01-30 12:49] LABS: LIPASE 25 U/L (12-53)
[2023-01-30 12:51] LABS: ALBUMIN 2.5 G/DL (3.2-5.2); ALKALINE PHOSPHATASE 136 U/L (46-116); ALT/SGPT 11 U/L (7.0-40); AST/SGOT < 8 U/L (<34); BILIRUBIN,DIRECT < 0.1 MG/DL (<0.4); BILIRUBIN,TOTAL 0.2 MG/DL (0.3-1.2); TOTAL PROTEIN 5.5 G/DL (5.7-8.2)
[2023-01-30 18:26] LABS: APPEARANCE, BODY FLUID CLEAR (CLEAR); PERITONEAL FL COLOR PALE YELLOW (COLORLESS); SOURCE, BODY FLUID PERITONEAL
[2023-01-30 18:31] LABS: SOURCE, BODY FLUID ALBUMIN PERITONEAL
[2023-01-30 18:38] LABS: SOURCE, BODY FLUID TOT PROTEIN PERITONEAL; TOTAL PROTEIN, BODY FLUID < 2.0 G/DL (NOT ESTABLISHED)
[2023-01-30 18:40] LABS: SOURCE, BODY FLUID GLUCOSE PERITONEAL
[2023-01-30] MEDS ORDERED: VANCOMYCIN HCL 1,000 MG, VIAL MATE ADAPTER 1 EACH in D5W 250 ML IV STA (19:26)
[2023-01-30] MEDS ORDERED: **hydrALAZINE HCL** 25 MG TAB PO ONE (19:50)
[2023-01-30] MEDS ORDERED: METOCLOPRAMIDE INJ 10MG/2ML VIAL IV ONE (19:55)
[2023-01-30] MEDS ORDERED: GLUCOSE 4GM CHEW TABLET PO PRN (20:00)
[2023-01-30] MEDS ORDERED: PIPERACILLIN/TAZOBACTAM SOD 3.375 GM in D5W MINI-BAG PLUS 50 ML IV ONE (20:00)
[2023-01-30] MEDS ORDERED: GLUCAGON INJ 1MG VIAL SC PRN (20:00)
[2023-01-30] MEDS ORDERED: DEXTROSE 50% 50ML SYRINGE IV PRN (20:00)
[2023-01-30] MEDS ORDERED: PIPERACILLIN/TAZOBACTAM SOD 3.375 GM in D5W MINI-BAG PLUS 50 ML IV SCH (20:15)
[2023-01-30] MEDS ORDERED: VANCOMYCIN HCL 1,000 MG, VIAL MATE ADAPTER 1 EACH in NS 250 ML IV SCH (20:15)
[2023-01-30] MEDS ORDERED: VANCOMYCIN HCL 1,000 MG, VIAL MATE ADAPTER 1 EACH in D5W 250 ML IV ONE (21:00)
[2023-01-30] MEDS ORDERED: CARVedilol 12.5 MG TAB PO ONE (21:00)
[2023-01-30] MEDS: INSULIN LISPRO (NovoLOG) PER UNIT SC SCH (21:00)
[2023-01-30] MEDS ORDERED: HOME MED LIST COMPLETE! XX SCH (21:05)
[2023-01-30 22:26] VITALS: BP 190/98; TEMP 98.4; O2SAT 96
[2023-01-30] MEDS ORDERED: MIRALAX *UNIT DOSE* 17GM PACKET PO PRN (23:00)
[2023-01-30] MEDS ORDERED: SENOKOT S TAB PO PRN (23:00)
[2023-01-30] MEDS: HYDROMORPHONE HCL 0.5 MG/ 0.5 ML SYRINGE IV PRN (23:09)
[2023-01-30 23:32] VITALS: BP 180/110; TEMP 98.2; O2SAT 92
[2023-01-31] VITALS (10 sets, daily range): BP systolic 117–200; BP diastolic 62–120; TEMP 96.7–98.1; O2SAT 91–98
[2023-01-31] MEDS ORDERED: VANCOMYCIN INTERMITTENT/PULSE DOSING BY CLINICAL PHARMACIST PER DOSING PROTOCOL XX SCH (00:30)
[2023-01-31] MEDS: PANTOPRAZOLE 40MG TAB (PROTONIX) PO SCH ×3 (00:30→20:48)
[2023-01-31] MEDS: AMITRIPTYLINE 50 MG TAB PO SCH ×2 (00:30→21:15)
[2023-01-31] MEDS: NIFEdipine 30MG XL TAB PO SCH ×3 (00:31→20:49)
[2023-01-31] MEDS ORDERED: VANCOMYCIN HCL 500 MG in D5W MINI-BAG PLUS 100 ML IV ONE (01:00)
[2023-01-31] MEDS: cloNIDine 0.1MG TABLET PO SCH ×3 (01:26→20:49)
[2023-01-31 01:44] LABS: RSV AMPLIFICATION NEGATIVE (NEGATIVE)
[2023-01-31] MEDS: PIPERACILLIN/TAZOBACTAM SOD 2.25 GM in D5W MINI-BAG PLUS 50 ML IV SCH ×2 (04:16→12:44)
[2023-01-31] MEDS ORDERED: cloNIDine 0.1MG TABLET PO ONE (05:00)
[2023-01-31] MEDS: HEPARIN SOD (PORCINE) 5000UNITS/ML 1ML VIAL/SYRINGE SC SCH ×3 (05:36→22:00)
[2023-01-31 06:23] LABS: CALCIUM LEVEL 8.9 MG/DL (8.5-10.1)
[2023-01-31 06:24] LABS: CREATININE FOR GFR 11.11 MG/DL (0.70-1.30); GLOMERULAR FILTRATION RATE 5.3 (>60)
[2023-01-31 07:29] LABS: C REACTIVE PROTEIN QUANTITATIV 18.1 MG/DL (<1.0)
[2023-01-31 07:42] LABS: PROCALCITONIN 0.64 ng/ml
[2023-01-31 07:58] LABS: BASO % 0.3 % (0.0-1.0); EOS # 0.1 10^3/uL (0.0-0.5); EOS % 1.7 % (0.0-3.0); LYMPH # 0.6 10^3/uL (1.5-5.0); MEAN CORPUSCULAR HEMOGLOBIN 28.3 pg (27.0-33.0); MEAN CORPUSCULAR HGB CONC 33.2 g/dl (32.0-36.5); MEAN CORPUSCULAR VOLUME 85.4 fl (80.0-96.0); MONO # 0.7 10^3/uL (0.0-0.8); MONO % 9.4 % (2.0-8.0); NEUTROPHILS % 80.2 % (36.0-66.0); PLATELET COUNT, AUTOMATED 168 10^3/uL (150-450); RED BLOOD COUNT 2.19 10^6/uL (4.30-6.10); WHITE BLOOD COUNT 7.5 10^3/uL (4.0-10.0)
[2023-01-31] MEDS: (RENVELA) SEVELAMER **CARBONate** 800 MG TAB PO SCH ×3 (08:00→18:51)
[2023-01-31] MEDS: SUCROFERRIC OXYHYDROXIDE 500MG CHEW TAB (VELPHORO) PO SCH ×3 (08:00→18:51)
[2023-01-31 08:01] LABS: HEMATOCRIT 18.7 % (42.0-52.0); HEMOGLOBIN 6.2 g/dl (13.5-17.5)
[2023-01-31] MEDS: INSULIN LISPRO (NovoLOG) PER UNIT SC SCH ×4 (08:29→20:47)
[2023-01-31] MEDS: LOSARTAN 50MG TABLET PO SCH (08:31)
[2023-01-31] MEDS: **hydrALAZINE HCL** 25 MG TAB PO SCH ×3 (08:32→20:48)
[2023-01-31] MEDS: CARVedilol 12.5 MG TAB PO SCH ×2 (08:32→20:48)
[2023-01-31] MEDS ORDERED: NIFEdipine 30MG XL TAB PO SCH (09:00)
[2023-01-31] MEDS ORDERED: VANCOMYCIN 1000MG/20ML VIAL IP ONE (14:00)
[2023-01-31 20:21] LABS: BASO % 0.4 % (0.0-1.0); EOS # 0.3 10^3/uL (0.0-0.5); EOS % 3.2 % (0.0-3.0); HEMATOCRIT 31.9 % (42.0-52.0); HEMOGLOBIN 10.9 g/dl (13.5-17.5); LYMPH # 0.7 10^3/uL (1.5-5.0); LYMPH % 8.5 % (24.0-44.0); MEAN CORPUSCULAR HEMOGLOBIN 27.9 pg (27.0-33.0); MEAN CORPUSCULAR HGB CONC 34.2 g/dl (32.0-36.5); MEAN CORPUSCULAR VOLUME 81.6 fl (80.0-96.0); MONO # 0.6 10^3/uL (0.0-0.8); MONO % 6.9 % (2.0-8.0); NEUTROPHILS # 6.5 10^3/uL (1.5-8.5); NEUTROPHILS % 80.5 % (36.0-66.0); PLATELET COUNT, AUTOMATED 227 10^3/uL (150-450); RED BLOOD COUNT 3.91 10^6/uL (4.30-6.10)
[2023-01-31] MEDS ORDERED: CEFEPIME 1GM VIAL (MAXIPIME) IP SCH (22:00)
[2023-02-01] VITALS: BP 134/78; TEMP 97.6; O2SAT 95
[2023-02-01 04:00] VITALS: BP 119/70; TEMP 97.7; O2SAT 95
[2023-02-01] MEDS: HEPARIN SOD (PORCINE) 5000UNITS/ML 1ML VIAL/SYRINGE SC SCH ×3 (05:28→22:28)
[2023-02-01] MEDS: ONDANSETRON 4MG 2ML VIAL IV PRN ×2 (05:29→17:40)
[2023-02-01 05:43] LABS: BASO % 0.2 % (0.0-1.0); EOS # 0.3 10^3/uL (0.0-0.5); EOS % 3.3 % (0.0-3.0); HEMATOCRIT 27.8 % (42.0-52.0); HEMOGLOBIN 9.5 g/dl (13.5-17.5); LYMPH # 0.7 10^3/uL (1.5-5.0); LYMPH % 8.3 % (24.0-44.0); MEAN CORPUSCULAR HEMOGLOBIN 27.6 pg (27.0-33.0); MEAN CORPUSCULAR HGB CONC 34.2 g/dl (32.0-36.5); MEAN CORPUSCULAR VOLUME 80.8 fl (80.0-96.0); MONO # 0.5 10^3/uL (0.0-0.8); MONO % 6.4 % (2.0-8.0); NEUTROPHILS # 6.6 10^3/uL (1.5-8.5); NEUTROPHILS % 81.3 % (36.0-66.0); PLATELET COUNT, AUTOMATED 220 10^3/uL (150-450); RED BLOOD COUNT 3.44 10^6/uL (4.30-6.10); WHITE BLOOD COUNT 8.1 10^3/uL (4.0-10.0)
[2023-02-01 06:09] LABS: VANCOMYCIN RANDOM 24.1 UG/ML
[2023-02-01 06:11] LABS: PERCENT SATURATION 40.8 % (19.7-50.0)
[2023-02-01 06:12] LABS: FERRITIN 1335.7 NG/ML (10.5-307.3)
[2023-02-01 06:18] LABS: ALBUMIN 2.1 G/DL (3.2-5.2); CALCIUM LEVEL 9.3 MG/DL (8.5-10.1); CREATININE FOR GFR 10.45 MG/DL (0.70-1.30); GLOMERULAR FILTRATION RATE 5.6 (>60); MAGNESIUM LEVEL 1.7 MG/DL (1.8-2.4); PHOSPHORUS LEVEL 5.1 MG/DL (2.5-4.9); POTASSIUM SERUM 3.8 MMOL/L (3.5-5.1)
[2023-02-01 07:52] VITALS: BP 131/72; TEMP 98; O2SAT 92
[2023-02-01] MEDS: (RENVELA) SEVELAMER **CARBONate** 800 MG TAB PO SCH ×3 (08:00→18:00)
[2023-02-01] MEDS: SUCROFERRIC OXYHYDROXIDE 500MG CHEW TAB (VELPHORO) PO SCH ×3 (08:00→18:00)
[2023-02-01] MEDS: CARVedilol 12.5 MG TAB PO SCH ×2 (08:58→22:26)
[2023-02-01] MEDS: cloNIDine 0.1MG TABLET PO SCH ×2 (08:58→22:27)
[2023-02-01] MEDS: INSULIN LISPRO (NovoLOG) PER UNIT SC SCH ×5 (08:58→22:29)
[2023-02-01] MEDS: NIFEdipine 30MG XL TAB PO SCH ×2 (08:59→22:26)
[2023-02-01] MEDS: **hydrALAZINE HCL** 25 MG TAB PO SCH ×3 (08:59→22:27)
[2023-02-01] MEDS: LOSARTAN 50MG TABLET PO SCH (08:59)
[2023-02-01] MEDS: PANTOPRAZOLE 40MG TAB (PROTONIX) PO SCH ×2 (08:59→22:27)
[2023-02-01] MEDS: HYDROMORPHONE HCL 0.5 MG/ 0.5 ML SYRINGE IV PRN (09:46)
[2023-02-01] MEDS ORDERED: LEVEMIR (INSULIN DETEMIR) 1 UNITS/0.01ML SC ONE (10:00)
[2023-02-01] MEDS: METOCLOPRAMIDE INJ 10MG/2ML VIAL IV PRN ×2 (10:25→22:28)
[2023-02-01] MEDS: MIRALAX *UNIT DOSE* 17GM PACKET PO SCH (10:30)
[2023-02-01 11:26] VITALS: BP 125/58; TEMP 98.1; O2SAT 93
[2023-02-01] MEDS ORDERED: MORPHINE 2 MG/ML 1ML VIAL IV ONE (12:30)
[2023-02-01 15:52] VITALS: BP 133/75; TEMP 97.4; O2SAT 97
[2023-02-01] MEDS ORDERED: LEVEMIR (INSULIN DETEMIR) 1 UNITS/0.01ML SC SCH (21:00)
[2023-02-01] MEDS ORDERED: ceFAZolin 1GM VIAL IP SCH (22:00)
[2023-02-01] MEDS ORDERED: D5W MINI IV SCH (22:00)
[2023-02-01] MEDS ORDERED: CEFAZOLIN SOD IV SCH (22:00)
[2023-02-01 22:15] VITALS: BP 139/60; TEMP 98.2; O2SAT 95
[2023-02-01] MEDS: AMITRIPTYLINE 50 MG TAB PO SCH (23:28)
[2023-02-02 00:16] VITALS: BP 132/70; TEMP 98; O2SAT 97
[2023-02-02 04:00] VITALS: BP 128/69; TEMP 97.6; O2SAT 96
[2023-02-02] MEDS: HEPARIN SOD (PORCINE) 5000UNITS/ML 1ML VIAL/SYRINGE SC SCH (05:48)
[2023-02-02] MEDS: INSULIN LISPRO (NovoLOG) PER UNIT SC SCH ×4 (07:30→12:42)
[2023-02-02 07:59] VITALS: BP 111/57; TEMP 97.2; O2SAT 92
[2023-02-02] MEDS: SUCROFERRIC OXYHYDROXIDE 500MG CHEW TAB (VELPHORO) PO SCH ×2 (08:00→12:30)
[2023-02-02] MEDS: MIRALAX *UNIT DOSE* 17GM PACKET PO SCH (09:00)
[2023-02-02] MEDS ORDERED: LEVEMIR (INSULIN DETEMIR) 1 UNITS/0.01ML SC SCH (09:00)
[2023-02-02] MEDS ORDERED: SENOKOT S TAB PO SCH (09:00)
[2023-02-02] MEDS ORDERED: VANCOMYCIN 1000MG/20ML VIAL IP ONE (09:50)
[2023-02-02] MEDS: PANTOPRAZOLE 40MG TAB (PROTONIX) PO SCH (10:02)
[2023-02-02] MEDS: **hydrALAZINE HCL** 25 MG TAB PO SCH (10:02)
[2023-02-02 10:03] VITALS: BP 111/57
[2023-02-02] MEDS: (RENVELA) SEVELAMER **CARBONate** 800 MG TAB PO SCH ×2 (10:03→12:30)
[2023-02-02] MEDS: LOSARTAN 50MG TABLET PO SCH (10:03)
[2023-02-02] MEDS: CARVedilol 12.5 MG TAB PO SCH (10:04)
[2023-02-02] MEDS: cloNIDine 0.1MG TABLET PO SCH (10:05)
[2023-02-02] MEDS: NIFEdipine 30MG XL TAB PO SCH (10:05)
[2023-02-02] MEDS ORDERED: ACET-683 PO (11:11)
== END 2023-02-02 13:51 | disposition home or self-care (01) | DRG 919 ==
LOC: M ED 11:00 → M ED INP 19:59 → M PCU 22:18
PROVIDERS: ADMIT Internal Medicine; ATTEND Internal Medicine
PROC: 30233N1 Transfusion of Nonautologous Red Blood Cells into Peripheral Vein, Percutaneous Approach (ICD-10-PCS; principal; 2023-01-31)
DX: T85.71XA Infection and inflammatory reaction due to peritoneal dialysis catheter, initial encounter (principal); N18.6 End stage renal disease; K65.0 Generalized (acute) peritonitis; I16.9 Hypertensive crisis, unspecified; E87.1 Hypo-osmolality and hyponatremia; I12.0 Hypertensive chronic kidney disease with stage 5 chronic kidney disease or end stage renal disease; E10.43 Type 1 diabetes mellitus with diabetic autonomic (poly)neuropathy; E10.22 Type 1 diabetes mellitus with diabetic chronic kidney disease; D63.1 Anemia in chronic kidney disease; K21.9 Gastro-esophageal reflux disease without esophagitis; I48.0 Paroxysmal atrial fibrillation; K31.84 Gastroparesis; K59.00 Constipation, unspecified; E83.39 Other disorders of phosphorus metabolism; E10.65 Type 1 diabetes mellitus with hyperglycemia; Y84.1 Kidney dialysis as the cause of abnormal reaction of the patient, or of later complication, without mention of misadventure at the time of the procedure; Z79.899 Other long term (current) drug therapy; Z79.4 Long term (current) use of insulin

== ENCOUNTER 2023-02-13 10:49 | Inpatient (IN) | payer OTHER ==
[~2023-02-13] VITALS: Ht 172.7 cm; Wt 64.5 kg
[~2023-02-13 10:49] MED LIST changes: +ACET-683 PO; +POTA1TAB23 PO
[2023-02-13] MEDS ORDERED: hydrALAZINE 20MG/ML 1ML VIAL IV STA ×3 (11:53→16:49)
[2023-02-13] MEDS ORDERED: ONDANSETRON 4MG 2ML VIAL IV ONE (11:55)
[2023-02-13 12:05] LABS: BASO % 0.1 % (0.0-1.0); EOS % 0.1 % (0.0-3.0); HEMATOCRIT 35.8 % (42.0-52.0); HEMOGLOBIN 12.3 g/dl (13.5-17.5); LYMPH # 0.9 10^3/uL (1.5-5.0); LYMPH % 9.2 % (24.0-44.0); MEAN CORPUSCULAR HEMOGLOBIN 27.8 pg (27.0-33.0); MEAN CORPUSCULAR HGB CONC 34.4 g/dl (32.0-36.5); MEAN CORPUSCULAR VOLUME 80.8 fl (80.0-96.0); MONO # 0.4 10^3/uL (0.0-0.8); MONO % 3.9 % (2.0-8.0); NEUTROPHILS # 8.6 10^3/uL (1.5-8.5); NEUTROPHILS % 86.3 % (36.0-66.0); PLATELET COUNT, AUTOMATED 307 10^3/uL (150-450); RED BLOOD COUNT 4.43 10^6/uL (4.30-6.10)
[2023-02-13 12:18] LABS: INR 1.05; PROTHROMBIN TIME 13.4 SECONDS (12.5-14.5)
[2023-02-13 12:19] LABS: PARTIAL THROMBOPLASTIN TIME 27.3 SECONDS (24.8-34.2)
[2023-02-13 12:27] LABS: LIPASE 41 U/L (12-53)
[2023-02-13 12:29] LABS: ALBUMIN 3.1 G/DL (3.2-5.2); ALKALINE PHOSPHATASE 96 U/L (46-116); ALT/SGPT 11 U/L (7.0-40); AST/SGOT 13 U/L (<34); BILIRUBIN,DIRECT 0.2 MG/DL (<0.4); BILIRUBIN,TOTAL 0.5 MG/DL (0.3-1.2); CPK CREATINE PHOSPHOKINASE 73 U/L (46-171); TOTAL PROTEIN 6.6 G/DL (5.7-8.2)
[2023-02-13 12:30] LABS: CK-MB VALUE MASS < 1.0 NG/ML (<3.6); MB/CK RELATIVE INDEX 1.36 (< OR =4)
[2023-02-13 12:36] LABS: AMYLASE < 20 U/L (30-118)
[2023-02-13 12:38] LABS: RSV AMPLIFICATION NEGATIVE (NEGATIVE)
[2023-02-13 12:58] LABS: MAGNESIUM LEVEL 1.6 MG/DL (1.8-2.4)
[2023-02-13] MEDS ORDERED: LOSARTAN 50MG TABLET PO STA (13:11)
[2023-02-13] MEDS ORDERED: NIFEdipine 30MG XL TAB PO STA (13:11)
[2023-02-13] MEDS ORDERED: CARVedilol 12.5 MG TAB PO STA (13:11)
[2023-02-13 14:21] LABS: CK-MB VALUE MASS < 1.0 NG/ML (<3.6)
[2023-02-13 14:23] LABS: CPK CREATINE PHOSPHOKINASE 70 U/L (46-171); MB/CK RELATIVE INDEX 1.42 (< OR =4)
[2023-02-13] MEDS ORDERED: PROMETHAZINE 25MG/ML 1ML VIAL IV ONE (14:25)
[2023-02-13 14:30] LABS: PROCALCITONIN 0.27 ng/ml
[2023-02-13 14:33] LABS: BLOOD UREA NITROGEN 35 MG/DL (9-23); CARBON DIOXIDE LEVEL 34 MMOL/L (20-31); CHLORIDE LEVEL 89 MMOL/L (98-107); CREATININE FOR GFR 9.65 MG/DL (0.70-1.30); GLOMERULAR FILTRATION RATE 6.2 (>60); GLUCOSE, FASTING 447 MG/DL (60-100); POTASSIUM SERUM 3.4 MMOL/L (3.5-5.1); SODIUM LEVEL 136 MMOL/L (136-145)
[2023-02-13] MEDS ORDERED: METOCLOPRAMIDE INJ 10MG/2ML VIAL IV ONE (15:35)
[2023-02-13] MEDS ORDERED: VANCOMYCIN HCL 1,250 MG in NS 250 ML IV ONE (15:45)
[2023-02-13] MEDS ORDERED: HumuLIN R (REGULAR) INSULIN (NovoLIN R) **100U/ML** PER UNIT IV ONE (16:40)
[2023-02-13] MEDS ORDERED: LABETALOL 100MG/20ML VIAL IV STA ×2 (16:49→17:47)
[2023-02-13] MEDS ORDERED: cloNIDine 0.1MG TABLET PO ONE ×2 (16:50→17:40)
[2023-02-13] MEDS ORDERED: VANCOMYCIN HCL 750 MG, VIAL MATE ADAPTER 1 EACH in D5W 250 ML IV ONE (17:00)
[2023-02-13] MEDS ORDERED: ONDANSETRON 4MG 2ML VIAL IV PRN (17:30)
[2023-02-13] MEDS ORDERED: GLUCAGON INJ 1MG VIAL SC PRN (17:30)
[2023-02-13] MEDS ORDERED: DEXTROSE 50% 50ML SYRINGE IV PRN (17:30)
[2023-02-13] MEDS ORDERED: GLUCOSE 4GM CHEW TABLET PO PRN (17:30)
[2023-02-13] MEDS ORDERED: LEVEMIR (INSULIN DETEMIR) 1 UNITS/0.01ML SC ONE (17:30)
[2023-02-13 17:33] LABS: SOURCE, BODY FLUID GLUCOSE PERITONEAL
[2023-02-13 17:35] LABS: SOURCE, BODY FLUID TOT PROTEIN PERITONEAL; TOTAL PROTEIN, BODY FLUID < 2.0 G/DL (NOT ESTABLISHED)
[2023-02-13 17:37] LABS: APPEARANCE, BODY FLUID CLEAR (CLEAR); PERITONEAL FL COLOR COLORLESS (COLORLESS); SOURCE, BODY FLUID PERITONEAL
[2023-02-13] MEDS ORDERED: NITROGLYCERIN 2% OINT 1 GM *U/D* PKT TOP ONE (17:40)
[2023-02-13] MEDS ORDERED: VANCOMYCIN 1000MG/20ML VIAL IP ONE (18:00)
[2023-02-13] MEDS ORDERED: CEFEPIME 1GM VIAL (MAXIPIME) IP SCH (18:00)
[2023-02-13] MEDS ORDERED: VANCOMYCIN HCL 500 MG in D5W MINI-BAG PLUS 100 ML IV ONE (18:00)
[2023-02-13 18:03] LABS: HEMOGLOBIN A1c 7.3 % (4.0-6.0)
[2023-02-13] MEDS ORDERED: hydrALAZINE 20MG/ML 1ML VIAL IV SCH (19:00)
[2023-02-13] MEDS ORDERED: ACET-683 PO (19:11)
[2023-02-13] MEDS ORDERED: METO10TA2 PO (19:35)
[2023-02-13] MEDS ORDERED: HYDR-3910 PO (19:35)
[2023-02-13] MEDS ORDERED: HOME MED LIST COMPLETE! XX SCH (19:40)
[2023-02-13] MEDS ORDERED: SCOPOLAMINE 1MG TRANSDERMAL PATCH TOP SCH (20:00)
[2023-02-13] MEDS ORDERED: LABETALOL 100MG/20ML VIAL IV ONE (20:00)
[2023-02-13] MEDS ORDERED: HYDROMORPHONE HCL 0.5 MG/ 0.5 ML SYRINGE IV ONE (20:00)
[2023-02-13] MEDS: KCL 20MEQ in NS 1000ML 1,000 ML IV SCH (20:13)
[2023-02-13 21:05] VITALS: BP 183/94; TEMP 97.3; O2SAT 100
[2023-02-13] MEDS: oxyBUTYnin 5 MG TAB PO SCH (21:33)
[2023-02-13] MEDS: CARVedilol 12.5 MG TAB PO SCH (21:34)
[2023-02-13] MEDS: PANTOPRAZOLE 40MG TAB (PROTONIX) PO SCH (21:34)
[2023-02-13] MEDS: NIFEdipine 30MG XL TAB PO SCH (21:34)
[2023-02-13] MEDS: **hydrALAZINE HCL** 25 MG TAB PO SCH (21:35)
[2023-02-13] MEDS: AMITRIPTYLINE 50 MG TAB PO SCH (23:11)
[2023-02-13 23:28] VITALS: BP 162/88; TEMP 98.2; O2SAT 100
[2023-02-14 04:14] VITALS: BP 159/82; TEMP 97.4; O2SAT 100
[2023-02-14] MEDS: **hydrALAZINE HCL** 25 MG TAB PO SCH ×3 (06:09→20:56)
[2023-02-14] MEDS: INSULIN LISPRO (NovoLOG) PER UNIT SC SCH ×6 (07:30→18:19)
[2023-02-14 07:40] VITALS: BP 136/76; TEMP 98.1; O2SAT 91
[2023-02-14 08:16] LABS: BASO # 0.1 10^3/uL (0.0-0.2); BASO % 0.7 % (0.0-1.0); EOS % 0.5 % (0.0-3.0); HEMATOCRIT 31.5 % (42.0-52.0); HEMOGLOBIN 10.4 g/dl (13.5-17.5); LYMPH # 0.5 10^3/uL (1.5-5.0); LYMPH % 7.1 % (24.0-44.0); MEAN CORPUSCULAR VOLUME 84.7 fl (80.0-96.0); MONO # 0.5 10^3/uL (0.0-0.8); MONO % 6.9 % (2.0-8.0); NEUTROPHILS # 6.4 10^3/uL (1.5-8.5); NEUTROPHILS % 84.5 % (36.0-66.0); PLATELET COUNT, AUTOMATED 227 10^3/uL (150-450); RED BLOOD COUNT 3.72 10^6/uL (4.30-6.10); WHITE BLOOD COUNT 7.6 10^3/uL (4.0-10.0)
[2023-02-14] MEDS ORDERED: PERCOCET 5MG/325MG TAB PO ONE (08:45)
[2023-02-14] MEDS ORDERED: LEVEMIR (INSULIN DETEMIR) 1 UNITS/0.01ML SC SCH (09:00)
[2023-02-14] MEDS ORDERED: VITAMIN D 50,000 UNITS CAPSULE (ERGOCALCIFEROL 1.25MG) PO SCH (09:00)
[2023-02-14] MEDS: LOSARTAN 50MG TABLET PO SCH (09:00)
[2023-02-14] MEDS: CARVedilol 12.5 MG TAB PO SCH ×2 (09:00→20:57)
[2023-02-14] MEDS: HEPARIN SOD (PORCINE) 5000UNITS/ML 1ML VIAL/SYRINGE SQ SCH ×2 (09:00→20:59)
[2023-02-14] MEDS: NIFEdipine 30MG XL TAB PO SCH ×2 (09:00→20:57)
[2023-02-14] MEDS: CALCITRIOL 0.25 MCG CAP (S0169) PO SCH (09:19)
[2023-02-14] MEDS: METOCLOPRAMIDE 10MG TAB PO SCH ×4 (09:19→20:58)
[2023-02-14] MEDS: PANTOPRAZOLE 40MG TAB (PROTONIX) PO SCH ×2 (09:19→20:55)
[2023-02-14] MEDS: KCL 20MEQ in NS 1000ML 1,000 ML IV SCH ×2 (09:20→20:55)
[2023-02-14] MEDS: oxyBUTYnin 5 MG TAB PO SCH ×2 (09:20→20:58)
[2023-02-14 09:22] LABS: CALCIUM LEVEL 9.1 MG/DL (8.5-10.1); CREATININE FOR GFR 10.54 MG/DL (0.70-1.30); GLOMERULAR FILTRATION RATE 5.6 (>60)
[2023-02-14 12:44] LABS: APPEARANCE, BODY FLUID CLEAR (CLEAR); PERITONEAL DIALYSATE FL COLOR COLORLESS (COLORLESS); SOURCE, BODY FLUID PERITONEAL DIALYSATE
[2023-02-14 14:04] VITALS: BP 121/69
[2023-02-14 16:00] VITALS: BP 150/68; TEMP 97.2; O2SAT 93
[2023-02-14 20:00] VITALS: BP 148/88; TEMP 98.4; O2SAT 98
[2023-02-14] MEDS: AMITRIPTYLINE 50 MG TAB PO SCH (20:57)
[2023-02-14] MEDS: LEVEMIR (INSULIN DETEMIR) 1 UNITS/0.01ML SC SCH (21:00)
[2023-02-15] VITALS: BP 140/86; TEMP 98; O2SAT 99
[2023-02-15 06:15] LABS: BASO % 0.8 % (0.0-1.0); EOS # 0.4 10^3/uL (0.0-0.5); EOS % 7.6 % (0.0-3.0); HEMATOCRIT 29.7 % (42.0-52.0); HEMOGLOBIN 9.6 g/dl (13.5-17.5); LYMPH # 0.8 10^3/uL (1.5-5.0); LYMPH % 15.9 % (24.0-44.0); MEAN CORPUSCULAR HEMOGLOBIN 27.7 pg (27.0-33.0); MEAN CORPUSCULAR HGB CONC 32.3 g/dl (32.0-36.5); MEAN CORPUSCULAR VOLUME 85.8 fl (80.0-96.0); MONO # 0.5 10^3/uL (0.0-0.8); MONO % 9.3 % (2.0-8.0); NEUTROPHILS # 3.2 10^3/uL (1.5-8.5); NEUTROPHILS % 66.2 % (36.0-66.0); PLATELET COUNT, AUTOMATED 221 10^3/uL (150-450); RED BLOOD COUNT 3.46 10^6/uL (4.30-6.10); WHITE BLOOD COUNT 4.9 10^3/uL (4.0-10.0)
[2023-02-15] MEDS: KCL 20MEQ in NS 1000ML 1,000 ML IV SCH (06:21)
[2023-02-15] MEDS: **hydrALAZINE HCL** 25 MG TAB PO SCH (06:25)
[2023-02-15 06:41] LABS: CALCIUM LEVEL 8.9 MG/DL (8.5-10.1); CREATININE FOR GFR 9.7 MG/DL (0.70-1.30); GLOMERULAR FILTRATION RATE 6.1 (>60); POTASSIUM SERUM 3.5 MMOL/L (3.5-5.1)
[2023-02-15] MEDS: INSULIN LISPRO (NovoLOG) PER UNIT SC SCH ×6 (07:30→17:30)
[2023-02-15] MEDS: METOCLOPRAMIDE 10MG TAB PO SCH ×4 (07:30→22:24)
[2023-02-15 08:00] VITALS: BP 190/102; TEMP 97.3; O2SAT 96
[2023-02-15] MEDS: LOSARTAN 50MG TABLET PO SCH (09:04)
[2023-02-15] MEDS: CALCITRIOL 0.25 MCG CAP (S0169) PO SCH (09:04)
[2023-02-15] MEDS: oxyBUTYnin 5 MG TAB PO SCH ×2 (09:04→22:25)
[2023-02-15] MEDS: PANTOPRAZOLE 40MG TAB (PROTONIX) PO SCH ×2 (09:04→22:25)
[2023-02-15] MEDS: NIFEdipine 30MG XL TAB PO SCH ×2 (09:04→22:23)
[2023-02-15] MEDS: HEPARIN SOD (PORCINE) 5000UNITS/ML 1ML VIAL/SYRINGE SQ SCH ×2 (09:05→22:26)
[2023-02-15] MEDS: CARVedilol 12.5 MG TAB PO SCH ×2 (09:05→22:25)
[2023-02-15] MEDS ORDERED: POTASSIUM CHLORIDE 10MEQ SR TABLET PO ONE (12:00)
[2023-02-15 13:00] VITALS: BP 180/100; TEMP 98.8; O2SAT 99
[2023-02-15] MEDS ORDERED: **hydrALAZINE** 50 MG TAB PO SCH (14:00)
[2023-02-15 15:22] VITALS: BP 178/70
[2023-02-15] MEDS ORDERED: PILL CUTTER 1 EACH XX PRN (15:40)
[2023-02-15] MEDS ORDERED: **hydrALAZINE HCL** 25 MG TAB PO ONE (15:55)
[2023-02-15 17:10] VITALS: BP 170/80; TEMP 97.7; O2SAT 95
[2023-02-15 21:55] VITALS: BP 140/90; TEMP 97.9; O2SAT 97
[2023-02-15] MEDS: AMITRIPTYLINE 50 MG TAB PO SCH (22:21)
[2023-02-15] MEDS: **hydrALAZINE** 50 MG TAB PO SCH (22:22)
[2023-02-15] MEDS: LEVEMIR (INSULIN DETEMIR) 1 UNITS/0.01ML SC SCH (22:26)
[2023-02-16] MEDS: **hydrALAZINE** 50 MG TAB PO SCH (05:56)
[2023-02-16 06:08] LABS: BASO % 1.2 % (0.0-1.0); EOS # 0.3 10^3/uL (0.0-0.5); EOS % 9.8 % (0.0-3.0); HEMATOCRIT 28.3 % (42.0-52.0); HEMOGLOBIN 9.1 g/dl (13.5-17.5); LYMPH # 0.8 10^3/uL (1.5-5.0); LYMPH % 25.5 % (24.0-44.0); MEAN CORPUSCULAR HEMOGLOBIN 27.4 pg (27.0-33.0); MEAN CORPUSCULAR HGB CONC 32.2 g/dl (32.0-36.5); MEAN CORPUSCULAR VOLUME 85.2 fl (80.0-96.0); MONO # 0.3 10^3/uL (0.0-0.8); MONO % 10.5 % (2.0-8.0); NEUTROPHILS # 1.7 10^3/uL (1.5-8.5); PLATELET COUNT, AUTOMATED 198 10^3/uL (150-450); RED BLOOD COUNT 3.32 10^6/uL (4.30-6.10); WHITE BLOOD COUNT 3.3 10^3/uL (4.0-10.0)
[2023-02-16 06:18] VITALS: BP 142/89; TEMP 97.7; O2SAT 98
[2023-02-16 06:40] LABS: CALCIUM LEVEL 8.6 MG/DL (8.5-10.1); CREATININE FOR GFR 8.82 MG/DL (0.70-1.30); GLOMERULAR FILTRATION RATE 6.9 (>60); POTASSIUM SERUM 3.8 MMOL/L (3.5-5.1)
[2023-02-16] MEDS: INSULIN LISPRO (NovoLOG) PER UNIT SC SCH ×4 (07:30→12:00)
[2023-02-16] MEDS ORDERED: HYDR-3910 PO (08:33)
[2023-02-16 08:41] VITALS: BP 141/89
[2023-02-16] MEDS: CARVedilol 12.5 MG TAB PO SCH (08:41)
[2023-02-16] MEDS: NIFEdipine 30MG XL TAB PO SCH (08:42)
[2023-02-16] MEDS: oxyBUTYnin 5 MG TAB PO SCH (08:42)
[2023-02-16] MEDS: CALCITRIOL 0.25 MCG CAP (S0169) PO SCH (08:42)
[2023-02-16] MEDS: METOCLOPRAMIDE 10MG TAB PO SCH ×2 (08:42→12:00)
[2023-02-16] MEDS: LOSARTAN 50MG TABLET PO SCH (08:42)
[2023-02-16] MEDS: PANTOPRAZOLE 40MG TAB (PROTONIX) PO SCH (08:42)
[2023-02-16] MEDS: HEPARIN SOD (PORCINE) 5000UNITS/ML 1ML VIAL/SYRINGE SQ SCH (08:44)
== END 2023-02-16 13:07 | disposition home or self-care (01) | DRG 304 ==
LOC: M ED 10:49 → M ED INP 16:49 → ENRESERV 19:50 → M PCU 21:03 → M MSPAV 02-15 17:02
PROVIDERS: ADMIT General Practice; ATTEND Internal Medicine
DX: I16.0 Hypertensive urgency (principal); N18.6 End stage renal disease; I48.20 Chronic atrial fibrillation, unspecified; E87.3 Alkalosis; E87.20 Acidosis, unspecified; N25.81 Secondary hyperparathyroidism of renal origin; E10.43 Type 1 diabetes mellitus with diabetic autonomic (poly)neuropathy; I12.0 Hypertensive chronic kidney disease with stage 5 chronic kidney disease or end stage renal disease; K21.9 Gastro-esophageal reflux disease without esophagitis; D63.1 Anemia in chronic kidney disease; E10.22 Type 1 diabetes mellitus with diabetic chronic kidney disease; E87.6 Hypokalemia; Z79.899 Other long term (current) drug therapy; Z79.4 Long term (current) use of insulin

== ENCOUNTER 2023-05-05 15:23 | Inpatient (IN) | payer OTHER ==
[~2023-05-05] VITALS: Ht 172.7 cm; Wt 56.2 kg
[~2023-05-05 15:23] MED LIST changes: -HYDR-3910 PO; -HYDR25TA PO; +HYDR25TA87 PO; +HYDR25TA88 PO; -MIRA1POW3 PO; +MIRA33506 PO; -OXYB5TAB11 PO; +OXYB5TAB14 PO
[2023-05-05 17:10] LABS: BASO % 0.5 % (0.0-1.0); EOS # 0.2 10^3/uL (0.0-0.5); EOS % 3.4 % (0.0-3.0); HEMATOCRIT 24.6 % (42.0-52.0); HEMOGLOBIN 8.3 g/dl (13.5-17.5); LYMPH # 0.6 10^3/uL (1.5-5.0); MEAN CORPUSCULAR HEMOGLOBIN 29.9 pg (27.0-33.0); MEAN CORPUSCULAR HGB CONC 33.7 g/dl (32.0-36.5); MEAN CORPUSCULAR VOLUME 88.5 fl (80.0-96.0); MONO # 0.7 10^3/uL (0.0-0.8); MONO % 11.1 % (2.0-8.0); NEUTROPHILS % 75.7 % (36.0-66.0); PLATELET COUNT, AUTOMATED 160 10^3/uL (150-450); RED BLOOD COUNT 2.78 10^6/uL (4.30-6.10); WHITE BLOOD COUNT 6.6 10^3/uL (4.0-10.0)
[2023-05-05 17:29] LABS: LIPASE 26 U/L (12-53)
[2023-05-05 17:35] LABS: ALBUMIN 2.6 G/DL (3.2-5.2); ALKALINE PHOSPHATASE 120 U/L (46-116); ALT/SGPT 14 U/L (7.0-40); AST/SGOT 9 U/L (<34); BILIRUBIN,DIRECT < 0.1 MG/DL (<0.4); BILIRUBIN,TOTAL < 0.2 MG/DL (0.3-1.2); BLOOD UREA NITROGEN 50 MG/DL (9-23); CALCIUM LEVEL 10.1 MG/DL (8.5-10.1); CARBON DIOXIDE LEVEL 33 MMOL/L (20-31); CHLORIDE LEVEL 93 MMOL/L (98-107); CREATININE FOR GFR 10.18 MG/DL (0.70-1.30); GLOMERULAR FILTRATION RATE 5.8 (>60); GLUCOSE, FASTING 304 MG/DL (60-100); MAGNESIUM LEVEL 3.5 MG/DL (1.8-2.4); POTASSIUM SERUM 3.2 MMOL/L (3.5-5.1); SODIUM LEVEL 133 MMOL/L (136-145); TOTAL PROTEIN 5.8 G/DL (5.7-8.2)
[2023-05-05] MEDS: NS 1,000 ML IV SCH (18:15)
[2023-05-05 18:33] LABS: APPEARANCE, BODY FLUID CLEAR (CLEAR); PERITONEAL FL COLOR COLORLESS (COLORLESS); SOURCE, BODY FLUID PERITONEAL
[2023-05-05 18:55] LABS: RSV AMPLIFICATION NEGATIVE (NEGATIVE)
[2023-05-05 18:56] LABS: SOURCE, BODY FLUID ALBUMIN PERITONEAL
[2023-05-05 19:01] LABS: SOURCE, BODY FLUID GLUCOSE PERITONEAL
[2023-05-05 19:03] LABS: SOURCE, BODY FLUID TOT PROTEIN PERITONEAL; TOTAL PROTEIN, BODY FLUID < 2.0 G/DL (NOT ESTABLISHED)
[2023-05-05] MEDS ORDERED: METOCLOPRAMIDE INJ 10MG/2ML VIAL IV PRN (20:05)
[2023-05-05] MEDS ORDERED: GLUCOSE 4GM CHEW TABLET PO PRN (20:05)
[2023-05-05] MEDS ORDERED: GLUCAGON INJ 1MG VIAL SC PRN (20:05)
[2023-05-05] MEDS ORDERED: CARVedilol 12.5 MG TAB PO SCH (21:00)
[2023-05-05] MEDS ORDERED: HYDR50TA46 PO (21:04)
[2023-05-05] MEDS ORDERED: TRAN1DIS4 TOP (21:04)
[2023-05-05] MEDS ORDERED: LABE100T40 PO (21:04)
[2023-05-05] MEDS ORDERED: CLON0.5T17 PO (21:04)
[2023-05-05] MEDS ORDERED: GABA-282 PO (21:07)
[2023-05-05] MEDS ORDERED: CLON0.5T2 PO (21:18)
[2023-05-05] MEDS ORDERED: HOME MED LIST COMPLETE! XX SCH (21:20)
[2023-05-05 23:20] VITALS: BP 220/100; TEMP 97.9; O2SAT 97
[2023-05-05 23:21] VITALS: BP 230/102
[2023-05-05] MEDS: DOCUSATE SODIUM 100MG CAPSULE PO SCH (23:56)
[2023-05-05] MEDS: **hydrALAZINE** 50 MG TAB PO SCH (23:56)
[2023-05-05] MEDS: LABETALOL 100MG TAB PO SCH (23:57)
[2023-05-06] VITALS (28 sets, daily range): BP systolic 127–254; BP diastolic 61–119; TEMP 97.5–98.1; O2SAT 90–100
[2023-05-06] MEDS: hydrALAZINE 20MG/ML 1ML VIAL IV ONE ×2 (03:07→18:16)
[2023-05-06] MEDS: LABETALOL 100MG/20ML VIAL IV STA (03:47)
[2023-05-06] MEDS ORDERED: INSULIN LISPRO (NovoLOG) PER UNIT SC SCH ×2 (03:50→07:30)
[2023-05-06] MEDS: LORazepam 2 MG/ML 1ML VIAL IV ONE (03:52)
[2023-05-06] MEDS ORDERED: LORazepam 2 MG/ML 1ML VIAL IV ONE ×2 (04:00)
[2023-05-06] MEDS: LABETALOL HCL 200 MG in D5W 160 ML IV SCH (04:56)
[2023-05-06 05:35] LABS: HEMATOCRIT 22.5 % (42.0-52.0); HEMOGLOBIN 7.6 g/dl (13.5-17.5); MEAN CORPUSCULAR HEMOGLOBIN 29.7 pg (27.0-33.0); MEAN CORPUSCULAR HGB CONC 33.8 g/dl (32.0-36.5); MEAN CORPUSCULAR VOLUME 87.9 fl (80.0-96.0); PLATELET COUNT, AUTOMATED 149 10^3/uL (150-450); RED BLOOD COUNT 2.56 10^6/uL (4.30-6.10); WHITE BLOOD COUNT 6.1 10^3/uL (4.0-10.0)
[2023-05-06 06:08] LABS: CALCIUM LEVEL 9.2 MG/DL (8.5-10.1); CREATININE FOR GFR 10.81 MG/DL (0.70-1.30); GLOMERULAR FILTRATION RATE 5.4 (>60); POTASSIUM SERUM 3.2 MMOL/L (3.5-5.1)
[2023-05-06] MEDS: INSULIN LISPRO (NovoLOG) PER UNIT SC SCH (06:27)
[2023-05-06] MEDS ORDERED: KCL 10MEQ/100ML SWI (KRUN) 10 MEQ in IV 1 EA IV SCH (08:00)
[2023-05-06] MEDS ORDERED: PILL CUTTER 1 EACH XX ONE (08:13)
[2023-05-06] MEDS: METOCLOPRAMIDE 10MG TAB PO PRN (08:55)
[2023-05-06] MEDS ORDERED: ENOXAPARIN 30MG/0.3ML SYRINGE (J1650 PER 10MG) SC SCH (09:00)
[2023-05-06] MEDS ORDERED: CLON0.2D6 TD (09:20)
[2023-05-06] MEDS: CARVedilol 12.5 MG TAB PO SCH (09:22)
[2023-05-06] MEDS: LOSARTAN 50MG TABLET PO SCH (09:23)
[2023-05-06] MEDS: POTASSIUM CHLORIDE 10MEQ SR TABLET PO ONE (09:23)
[2023-05-06] MEDS: HEPARIN SOD (PORCINE) 5000UNITS/ML 1ML VIAL/SYRINGE SQ SCH (09:24)
[2023-05-06] MEDS: SENOKOT S TAB PO SCH (11:10)
[2023-05-06] MEDS: CALCITRIOL 0.25 MCG CAP (S0169) PO SCH (11:10)
[2023-05-06] MEDS: (RENVELA) SEVELAMER **CARBONate** 800 MG TAB PO SCH (11:10)
[2023-05-06] MEDS: oxyBUTYnin 5 MG TAB PO SCH (11:10)
[2023-05-06] MEDS: clonazePAM 0.5 MG TAB PO PRN (11:11)
[2023-05-06] MEDS: PANTOPRAZOLE 40MG TAB (PROTONIX) PO SCH (11:11)
[2023-05-06 12:27] LABS: HEPATITIS B SURFACE ANTIBODY POSITIVE (POSITIVE)
[2023-05-06 12:59] LABS: HEPATITIS C VIRUS ABY INDEX 0.03 INDEX (<0.8)
[2023-05-06 13:00] LABS: HEPATITIS B CORE ANTIBODY IGM NEGATIVE (NEGATIVE)
[2023-05-06] MEDS: DEXTROSE 50% 50ML SYRINGE IV PRN (17:30)
[2023-05-06] MEDS: GABAPENTIN 300 MG CAP PO SCH (20:27)
[2023-05-06] MEDS: AMITRIPTYLINE 50 MG TAB PO SCH (20:28)
[2023-05-06] MEDS: LORazepam 2 MG/ML 1ML VIAL IV STA (21:23)
[2023-05-07] VITALS (19 sets, daily range): BP systolic 143–277; BP diastolic 67–146; TEMP 97.8–98.8; O2SAT 84–99
[2023-05-07] MEDS: LORazepam 2 MG/ML 1ML VIAL IV STA (02:54)
[2023-05-07 04:50] LABS: HEMATOCRIT 21.1 % (42.0-52.0); MEAN CORPUSCULAR HEMOGLOBIN 29.7 pg (27.0-33.0); MEAN CORPUSCULAR HGB CONC 33.2 g/dl (32.0-36.5); MEAN CORPUSCULAR VOLUME 89.4 fl (80.0-96.0); PLATELET COUNT, AUTOMATED 141 10^3/uL (150-450); RED BLOOD COUNT 2.36 10^6/uL (4.30-6.10); WHITE BLOOD COUNT 4.6 10^3/uL (4.0-10.0)
[2023-05-07 05:11] LABS: CALCIUM LEVEL 8.7 MG/DL (8.5-10.1); CREATININE FOR GFR 11.85 MG/DL (0.70-1.30); GLOMERULAR FILTRATION RATE 4.9 (>60); MAGNESIUM LEVEL 3.5 MG/DL (1.8-2.4); PHOSPHORUS LEVEL 5.5 MG/DL (2.5-4.9); POTASSIUM SERUM 3.4 MMOL/L (3.5-5.1)
[2023-05-07] MEDS ORDERED: SODIUM CHLORIDE 0.9% 1000ML IV PRN (06:40)
[2023-05-07] MEDS ORDERED: HEPARIN 1,000UNITS/ML 10ML VIAL (FOR RADIOLOGY & DIALYSIS ONLY) IV PRN (06:40)
[2023-05-07] MEDS ORDERED: LIDOCAINE 1% SDV 5ML VIAL SC PRN (06:40)
[2023-05-07] MEDS ORDERED: HEPARIN 1,000UNITS/ML 10ML VIAL (FOR RADIOLOGY & DIALYSIS ONLY) XX SCH (06:40)
[2023-05-07] MEDS: **hydrALAZINE HCL** 25 MG TAB PO SCH (09:57)
[2023-05-07] MEDS: LORazepam 1 MG TAB PO ONE (09:57)
[2023-05-07] MEDS: hydrALAZINE 20MG/ML 1ML VIAL IV ONE (13:04)
[2023-05-07] MEDS ORDERED: **hydrALAZINE** 50 MG TAB PO SCH (14:00)
[2023-05-07] MEDS: **hydrALAZINE** 50 MG TAB PO SCH (14:00)
[2023-05-07] MEDS: amLODIPine 5 MG TAB PO SCH (14:00)
[2023-05-07] MEDS: LABETALOL 100MG/20ML VIAL IV SCH (14:19)
[2023-05-07] MEDS ORDERED: PILL CUTTER 1 EACH XX PRN (14:30)
[2023-05-07] MEDS: ONDANSETRON 4MG 2ML VIAL IV PRN (14:59)
[2023-05-07] MEDS: clonazePAM 0.5 MG TAB PO PRN (15:13)
[2023-05-07] MEDS: MORPHINE 2 MG/ML 1ML VIAL IV ONE (17:00)
[2023-05-07] MEDS: ERYTHROMYCIN 250MG TABLET PO SCH (18:03)
[2023-05-07] MEDS: cloNIDine HCL 0.1 MG/24 HR PATCH TOP SCH (18:06)
[2023-05-07] MEDS: ACETAMINOPHEN TAB 650MG DOSE (2X325MG) PO PRN (20:31)
[2023-05-07] MEDS: METOCLOPRAMIDE INJ 10MG/2ML VIAL IV ONE (21:53)
[2023-05-07] MEDS: ACETAMINOPHEN *IV* 1,000 MG in IV 1 EA IV ONE (22:17)
[2023-05-08] VITALS (9 sets, daily range): BP systolic 120–260; BP diastolic 76–140; TEMP 96.9–98.6; O2SAT 91–100
[2023-05-08] MEDS: INSULIN LISPRO (NovoLOG) PER UNIT SC ONE (00:59)
[2023-05-08] MEDS: MORPHINE 2 MG/ML 1ML VIAL IV ONE (01:14)
[2023-05-08] MEDS: METOCLOPRAMIDE INJ 10MG/2ML VIAL IV ONE (01:16)
[2023-05-08 05:40] LABS: HEMATOCRIT 25.9 % (42.0-52.0); HEMOGLOBIN 8.8 g/dl (13.5-17.5); MEAN CORPUSCULAR HEMOGLOBIN 29.6 pg (27.0-33.0); MEAN CORPUSCULAR VOLUME 87.2 fl (80.0-96.0); PLATELET COUNT, AUTOMATED 190 10^3/uL (150-450); RED BLOOD COUNT 2.97 10^6/uL (4.30-6.10); WHITE BLOOD COUNT 11.3 10^3/uL (4.0-10.0)
[2023-05-08] MEDS: SCOPOLAMINE 1MG TRANSDERMAL PATCH TOP PRN (05:54)
[2023-05-08 06:04] LABS: CALCIUM LEVEL 9.2 MG/DL (8.5-10.1); CREATININE FOR GFR 11.05 MG/DL (0.70-1.30); GLOMERULAR FILTRATION RATE 5.3 (>60); POTASSIUM SERUM 3.1 MMOL/L (3.5-5.1)
[2023-05-08] MEDS: POTASSIUM CHLORIDE 10MEQ SR TABLET PO ONE (09:15)
[2023-05-08] MEDS: LORazepam 2 MG/ML 1ML VIAL IV ONE (10:48)
[2023-05-08] MEDS: METOCLOPRAMIDE INJ 10MG/2ML VIAL IV SCH (11:02)
[2023-05-08] MEDS: KCL 10MEQ/100ML SWI (KRUN) 10 MEQ in IV 1 EA IV SCH (14:25)
[2023-05-08] MEDS: ERYTHROMYCIN LACTOBIONATE IV SCH (16:45)
[2023-05-08] MEDS: NS IV SCH (16:45)
[2023-05-08] MEDS: cloNIDine HCL 0.1 MG/24 HR PATCH TOP SCH (17:11)
[2023-05-08] MEDS: hydrALAZINE 20MG/ML 1ML VIAL IV SCH (17:50)
[2023-05-08] MEDS ORDERED: ASPIRIN 325 MG TAB PO ONE (18:30)
[2023-05-08] MEDS ORDERED: ATORVASTATIN 20 MG TAB PO SCH (21:00)
[2023-05-08] MEDS ORDERED: LABETALOL 100MG/20ML VIAL IV SCH (21:00)
[2023-05-08] MEDS: amLODIPine 5 MG TAB PO SCH (21:22)
[2023-05-08] MEDS: LABETALOL 100MG/20ML VIAL IV SCH (21:23)
[2023-05-08] MEDS: KCL 20MEQ in NS 1000ML 1,000 ML IV SCH (22:03)
[2023-05-08] MEDS: LORazepam 2 MG/ML 1ML VIAL IV PRN (23:09)
[2023-05-09 04:05] VITALS: BP 170/75; TEMP 97.6; O2SAT 92
[2023-05-09 05:39] LABS: HEMATOCRIT 27.8 % (42.0-52.0); HEMOGLOBIN 9.5 g/dl (13.5-17.5); MEAN CORPUSCULAR HEMOGLOBIN 29.5 pg (27.0-33.0); MEAN CORPUSCULAR HGB CONC 34.2 g/dl (32.0-36.5); MEAN CORPUSCULAR VOLUME 86.3 fl (80.0-96.0); PLATELET COUNT, AUTOMATED 115 10^3/uL (150-450); RED BLOOD COUNT 3.22 10^6/uL (4.30-6.10); WHITE BLOOD COUNT 10.6 10^3/uL (4.0-10.0)
[2023-05-09 06:08] LABS: CALCIUM LEVEL 8.6 MG/DL (8.5-10.1); CREATININE FOR GFR 9.8 MG/DL (0.70-1.30); GLOMERULAR FILTRATION RATE 6.1 (>60); MAGNESIUM LEVEL 2.8 MG/DL (1.8-2.4); PHOSPHORUS LEVEL 4.5 MG/DL (2.5-4.9); POTASSIUM SERUM 3.7 MMOL/L (3.5-5.1)
[2023-05-09 08:00] VITALS: BP 190/72; TEMP 97.4; O2SAT 97
[2023-05-09] MEDS ORDERED: NS IV SCH ×2 (08:20→14:00)
[2023-05-09] MEDS ORDERED: ERYTHROMYCIN LACTOBIONATE IV SCH ×2 (08:20→14:00)
[2023-05-09] MEDS ORDERED: ASPIRIN 81MG ENTERIC TABLET PO SCH (09:00)
[2023-05-09 12:00] VITALS: BP 176/70; TEMP 98; O2SAT 96
[2023-05-09 16:00] VITALS: BP 179/86; TEMP 96.7; O2SAT 94
[2023-05-09 20:00] VITALS: BP 164/84; TEMP 97.4; O2SAT 98
[2023-05-10] VITALS (7 sets, daily range): BP systolic 155–190; BP diastolic 61–90; TEMP 96.3–98.4; O2SAT 94–97
[2023-05-10 05:40] LABS: HEMATOCRIT 26.4 % (42.0-52.0); HEMOGLOBIN 8.6 g/dl (13.5-17.5); MEAN CORPUSCULAR HEMOGLOBIN 30.3 pg (27.0-33.0); MEAN CORPUSCULAR HGB CONC 32.6 g/dl (32.0-36.5); PLATELET COUNT, AUTOMATED 156 10^3/uL (150-450); RED BLOOD COUNT 2.84 10^6/uL (4.30-6.10); WHITE BLOOD COUNT 6.7 10^3/uL (4.0-10.0)
[2023-05-10 06:26] LABS: CALCIUM LEVEL 7.9 MG/DL (8.5-10.1); CREATININE FOR GFR 9.12 MG/DL (0.70-1.30); GLOMERULAR FILTRATION RATE 6.6 (>60); MAGNESIUM LEVEL 2.4 MG/DL (1.8-2.4); PHOSPHORUS LEVEL 4.4 MG/DL (2.5-4.9); POTASSIUM SERUM 3.8 MMOL/L (3.5-5.1)
[2023-05-10] MEDS ORDERED: DEXTROSE 50% 50ML SYRINGE IV PRN (11:35)
[2023-05-10] MEDS: NS 1,000 ML IV SCH (11:35)
[2023-05-10] MEDS: LR 1,000 ML IV SCH ×2 (11:35→15:25)
[2023-05-10] MEDS ORDERED: GLUCOSE 4GM CHEW TABLET PO PRN (11:35)
[2023-05-10] MEDS ORDERED: GLUCAGON INJ 1MG VIAL SC PRN (11:35)
[2023-05-10] MEDS ORDERED: INSULIN LISPRO (NovoLOG) PER UNIT SC PRN (11:35)
[2023-05-10] MEDS: **hydrALAZINE** 50 MG TAB PO SCH (12:00)
[2023-05-10] MEDS: ceFAZolin 2 GM/D5W 50 ML IV BAG As Ordered ONE (12:40)
[2023-05-10] MEDS ORDERED: METOCLOPRAMIDE INJ 10MG/2ML VIAL As Ordered ONE (13:18)
[2023-05-10] MEDS ORDERED: LABETALOL 100MG/20ML VIAL As Ordered ONE (13:18)
[2023-05-10] MEDS ORDERED: SUGAMMADEX SODIUM 500 MG/5 ML VIAL (BRIDION) As Ordered ONE (13:18)
[2023-05-10] MEDS ORDERED: ETOMIDATE INJ 20MG/10ML VIAL As Ordered ONE (13:18)
[2023-05-10] MEDS ORDERED: ACETAMINOPHEN 1000MG 100ML IV BAG As Ordered ONE (13:18)
[2023-05-10] MEDS ORDERED: LIDOCAINE 2% 100MG/5ML SDV (FOR ANES.) As Ordered ONE (13:18)
[2023-05-10] MEDS ORDERED: propofoL 200 MG/20 ML VIAL As Ordered ONE (13:18)
[2023-05-10] MEDS ORDERED: ROCURONIUM BROMIDE 50MG/5ML VIAL As Ordered ONE (13:18)
[2023-05-10] MEDS ORDERED: ONDANSETRON 4MG 2ML VIAL As Ordered ONE (13:18)
[2023-05-10] MEDS ORDERED: fentaNYL 100 MCG/2 ML INJECTION As Ordered ONE (13:18)
[2023-05-10] MEDS ORDERED: MIDAZOLAM INJ 2MG/2ML VIAL As Ordered ONE (13:18)
[2023-05-10] MEDS: LIDOCAINE 1% SDV 30ML VIAL As Ordered ONE (14:00)
[2023-05-10] MEDS ORDERED: ONDANSETRON 4MG 2ML VIAL IV PRN (15:25)
[2023-05-10] MEDS ORDERED: oxyCODONE 5MG TAB PO PRN (15:25)
[2023-05-10] MEDS ORDERED: fentaNYL 100 MCG/2 ML INJECTION IV PRN (15:25)
[2023-05-10] MEDS: HYDROMORPHONE HCL 0.5 MG/ 0.5 ML SYRINGE IV PRN (16:10)
[2023-05-10] MEDS: hydrALAZINE 20MG/ML 1ML VIAL IV PRN (16:33)
[2023-05-10] MEDS: LABETALOL 100MG/20ML VIAL IV PRN (16:34)
[2023-05-11] VITALS (7 sets, daily range): BP systolic 162–238; BP diastolic 70–110; TEMP 97.5–98.3; O2SAT 95–99
[2023-05-11] MEDS ORDERED: HEPARIN 1,000UNITS/ML 10ML VIAL (FOR RADIOLOGY & DIALYSIS ONLY) IV PRN (06:55)
[2023-05-11] MEDS ORDERED: HEPARIN 1,000UNITS/ML 10ML VIAL (FOR RADIOLOGY & DIALYSIS ONLY) XX SCH (06:55)
[2023-05-11] MEDS ORDERED: SODIUM CHLORIDE 0.9% 1000ML IV PRN (06:55)
[2023-05-11] MEDS ORDERED: LIDOCAINE 1% SDV 5ML VIAL SC PRN (06:55)
[2023-05-11 07:16] LABS: BASO % 0.5 % (0.0-1.0); EOS # 0.1 10^3/uL (0.0-0.5); EOS % 0.6 % (0.0-3.0); HEMATOCRIT 29.9 % (42.0-52.0); HEMOGLOBIN 9.8 g/dl (13.5-17.5); LYMPH # 0.7 10^3/uL (1.5-5.0); LYMPH % 7.6 % (24.0-44.0); MEAN CORPUSCULAR HEMOGLOBIN 29.6 pg (27.0-33.0); MEAN CORPUSCULAR HGB CONC 32.8 g/dl (32.0-36.5); MEAN CORPUSCULAR VOLUME 90.3 fl (80.0-96.0); MONO % 11.2 % (2.0-8.0); NEUTROPHILS % 79.2 % (36.0-66.0); RED BLOOD COUNT 3.31 10^6/uL (4.30-6.10); WHITE BLOOD COUNT 8.8 10^3/uL (4.0-10.0)
[2023-05-11 07:45] LABS: ALBUMIN 1.9 G/DL (3.2-5.2); ALKALINE PHOSPHATASE 80 U/L (46-116); ALT/SGPT 12 U/L (7.0-40); AST/SGOT 18 U/L (<34); BILIRUBIN,TOTAL < 0.2 MG/DL (0.3-1.2); BLOOD UREA NITROGEN 46 MG/DL (9-23); CALCIUM LEVEL 8.2 MG/DL (8.5-10.1); CARBON DIOXIDE LEVEL 26 MMOL/L (20-31); CHLORIDE LEVEL 99 MMOL/L (98-107); CREATININE FOR GFR 9.58 MG/DL (0.70-1.30); GLOMERULAR FILTRATION RATE 6.2 (>60); GLUCOSE, FASTING 197 MG/DL (60-100); POTASSIUM SERUM 4.3 MMOL/L (3.5-5.1); SODIUM LEVEL 136 MMOL/L (136-145); TOTAL PROTEIN 4.6 G/DL (5.7-8.2)
[2023-05-11] MEDS ORDERED: METOCLOPRAMIDE INJ 10MG/2ML VIAL IV SCH (17:00)
[2023-05-11] MEDS: **hydrALAZINE** 50 MG TAB PO SCH (17:51)
[2023-05-11] MEDS: LABETALOL 200 MG TAB PO SCH (20:55)
[2023-05-11] MEDS: RAMELTEON 8 MG TAB (ROZEREM) PO PRN (23:36)
[2023-05-12] VITALS (7 sets, daily range): BP systolic 160–230; BP diastolic 82–100; TEMP 96.9–98; O2SAT 95–98
[2023-05-12] MEDS: hydrALAZINE 20MG/ML 1ML VIAL IV SCH (12:05)
[2023-05-12] MEDS: PERCOCET 5MG/325MG TAB PO PRN (12:55)
[2023-05-12] MEDS: LABETALOL 100MG/20ML VIAL IV SCH ×2 (15:14→22:44)
[2023-05-12] MEDS: METOCLOPRAMIDE INJ 10MG/2ML VIAL IV PRN (21:35)
[2023-05-13] VITALS (67 sets, daily range): BP systolic 124–228; BP diastolic 62–110; TEMP 97–98.4; O2SAT 91–99
[2023-05-13] MEDS: hydrALAZINE 20MG/ML 1ML VIAL IV STA ×3 (01:51→04:26)
[2023-05-13] MEDS ORDERED: LIDOCAINE 1% SDV 5ML VIAL SC PRN (06:40)
[2023-05-13] MEDS ORDERED: HEPARIN 1,000UNITS/ML 10ML VIAL (FOR RADIOLOGY & DIALYSIS ONLY) IV PRN (06:40)
[2023-05-13] MEDS ORDERED: SODIUM CHLORIDE 0.9% 1000ML IV PRN (06:40)
[2023-05-13] MEDS ORDERED: HEPARIN 1,000UNITS/ML 10ML VIAL (FOR RADIOLOGY & DIALYSIS ONLY) XX SCH (06:40)
[2023-05-13 07:26] LABS: HEMATOCRIT 32.8 % (42.0-52.0); HEMOGLOBIN 11.2 g/dl (13.5-17.5); MEAN CORPUSCULAR HEMOGLOBIN 30.5 pg (27.0-33.0); MEAN CORPUSCULAR HGB CONC 34.1 g/dl (32.0-36.5); MEAN CORPUSCULAR VOLUME 89.4 fl (80.0-96.0); PLATELET COUNT, AUTOMATED 210 10^3/uL (150-450); RED BLOOD COUNT 3.67 10^6/uL (4.30-6.10); WHITE BLOOD COUNT 13.3 10^3/uL (4.0-10.0)
[2023-05-13 07:55] LABS: ALBUMIN 2.1 G/DL (3.2-5.2); CALCIUM LEVEL 9.5 MG/DL (8.5-10.1); CREATININE FOR GFR 9.69 MG/DL (0.70-1.30); GLOMERULAR FILTRATION RATE 6.2 (>60); PHOSPHORUS LEVEL 5.6 MG/DL (2.5-4.9); POTASSIUM SERUM 3.9 MMOL/L (3.5-5.1)
[2023-05-13] MEDS: LABETALOL 100MG/20ML VIAL IV SCH (08:31)
[2023-05-13] MEDS: niCARdipine IV 40 MG in IV 1 EA IV SCH (09:05)
[2023-05-13] MEDS: clonazePAM 0.5 MG TAB PO PRN (09:21)
[2023-05-13] MEDS: hydrALAZINE 20MG/ML 1ML VIAL IV SCH (12:15)
[2023-05-13] MEDS: (RENVELA) SEVELAMER **CARBONate** 800 MG TAB PO SCH (12:37)
[2023-05-13] MEDS: LORazepam 2 MG/ML 1ML VIAL IV PRN (12:38)
[2023-05-14] VITALS (62 sets, daily range): BP systolic 131–202; BP diastolic 63–93; TEMP 97.3–98.2; O2SAT 92–100
[2023-05-14] MEDS ORDERED: SODIUM CHLORIDE 0.9% 1000ML IV PRN (06:00)
[2023-05-14] MEDS ORDERED: LIDOCAINE 1% SDV 5ML VIAL SC PRN (06:00)
[2023-05-14] MEDS: HEPARIN 1,000UNITS/ML 10ML VIAL (FOR RADIOLOGY & DIALYSIS ONLY) IV STA (09:35)
[2023-05-14 10:59] LABS: ALKALINE PHOSPHATASE 78 U/L (46-116); ALT/SGPT < 9 U/L (7.0-40); AST/SGOT 16 U/L (<34); BILIRUBIN,TOTAL < 0.2 MG/DL (0.3-1.2); BLOOD UREA NITROGEN 41 MG/DL (9-23); CALCIUM LEVEL 8.7 MG/DL (8.5-10.1); CARBON DIOXIDE LEVEL 32 MMOL/L (20-31); CHLORIDE LEVEL 98 MMOL/L (98-107); CREATININE FOR GFR 7.73 MG/DL (0.70-1.30); GLUCOSE, FASTING 122 MG/DL (60-100); MAGNESIUM LEVEL 2.5 MG/DL (1.8-2.4); PHOSPHORUS LEVEL 4.4 MG/DL (2.5-4.9); POTASSIUM SERUM 2.9 MMOL/L (3.5-5.1); SODIUM LEVEL 137 MMOL/L (136-145); TOTAL PROTEIN 4.9 G/DL (5.7-8.2)
[2023-05-14] MEDS: LORazepam 2 MG/ML 1ML VIAL IV PRN (13:57)
[2023-05-14 19:09] LABS: CALCIUM LEVEL 6.5 MG/DL (8.5-10.1); CREATININE FOR GFR 6.51 MG/DL (0.70-1.30); GLOMERULAR FILTRATION RATE 9.7 (>60); POTASSIUM SERUM 3.6 MMOL/L (3.5-5.1)
[2023-05-15] VITALS (43 sets, daily range): BP systolic 128–195; BP diastolic 61–91; TEMP 97.2–98.6; O2SAT 90–99
[2023-05-15] MEDS: LORazepam 2 MG/ML 1ML VIAL IV STA (04:28)
[2023-05-15 08:44] LABS: ALBUMIN 1.7 G/DL (3.2-5.2); ALKALINE PHOSPHATASE 75 U/L (46-116); ALT/SGPT < 9 U/L (7.0-40); AST/SGOT 14 U/L (<34); BILIRUBIN,TOTAL < 0.2 MG/DL (0.3-1.2); BLOOD UREA NITROGEN 37 MG/DL (9-23); CALCIUM LEVEL 8.6 MG/DL (8.5-10.1); CARBON DIOXIDE LEVEL 37 MMOL/L (20-31); CHLORIDE LEVEL 99 MMOL/L (98-107); CREATININE FOR GFR 7.73 MG/DL (0.70-1.30); GLUCOSE, FASTING 117 MG/DL (60-100); MAGNESIUM LEVEL 2.2 MG/DL (1.8-2.4); PHOSPHORUS LEVEL 5.3 MG/DL (2.5-4.9); POTASSIUM SERUM 3.5 MMOL/L (3.5-5.1); SODIUM LEVEL 142 MMOL/L (136-145); TOTAL PROTEIN 4.3 G/DL (5.7-8.2)
[2023-05-15] MEDS: LABETALOL 100MG/20ML VIAL IV SCH (10:27)
[2023-05-16] VITALS (17 sets, daily range): BP systolic 134–198; BP diastolic 70–99; TEMP 97–98.2; O2SAT 95–100
[2023-05-16] MEDS ORDERED: SODIUM CHLORIDE 0.9% 1000ML IV PRN (06:00)
[2023-05-16] MEDS ORDERED: HEPARIN 1,000UNITS/ML 10ML VIAL (FOR RADIOLOGY & DIALYSIS ONLY) XX SCH (06:00)
[2023-05-16] MEDS ORDERED: HEPARIN 1,000UNITS/ML 10ML VIAL (FOR RADIOLOGY & DIALYSIS ONLY) IV PRN (06:00)
[2023-05-16 06:20] LABS: ALBUMIN 1.8 G/DL (3.2-5.2); ALKALINE PHOSPHATASE 87 U/L (46-116); ALT/SGPT < 9 U/L (7.0-40); AST/SGOT 23 U/L (<34); BILIRUBIN,TOTAL < 0.2 MG/DL (0.3-1.2); BLOOD UREA NITROGEN 45 MG/DL (9-23); CARBON DIOXIDE LEVEL 36 MMOL/L (20-31); CHLORIDE LEVEL 95 MMOL/L (98-107); CREATININE FOR GFR 8.96 MG/DL (0.70-1.30); GLOMERULAR FILTRATION RATE 6.7 (>60); GLUCOSE, FASTING 180 MG/DL (60-100); MAGNESIUM LEVEL 2.6 MG/DL (1.8-2.4); SODIUM LEVEL 139 MMOL/L (136-145); TOTAL PROTEIN 4.5 G/DL (5.7-8.2)
[2023-05-16] MEDS: LABETALOL 100MG TAB PO SCH (11:55)
[2023-05-16] MEDS ORDERED: hydrALAZINE 20MG/ML 1ML VIAL XX SCH (12:00)
[2023-05-16] MEDS ORDERED: LABETALOL 100MG/20ML VIAL XX SCH (14:00)
[2023-05-16] MEDS: clonazePAM 0.5 MG TAB PO PRN (19:08)
[2023-05-16] MEDS: diphenhydrAMINE 25MG CAP PO STA (21:11)
[2023-05-16] MEDS: **hydrALAZINE** 50 MG TAB PO PRN (23:46)
[2023-05-17] VITALS (7 sets, daily range): BP systolic 120–180; BP diastolic 59–86; TEMP 97–97.8; O2SAT 91–98
[2023-05-17] MEDS ORDERED: SODIUM CHLORIDE 0.9% 1000ML IV PRN (06:00)
[2023-05-17] MEDS ORDERED: HEPARIN 1,000UNITS/ML 10ML VIAL (FOR RADIOLOGY & DIALYSIS ONLY) XX SCH (06:00)
[2023-05-17] MEDS ORDERED: HEPARIN 1,000UNITS/ML 10ML VIAL (FOR RADIOLOGY & DIALYSIS ONLY) IV PRN (06:00)
[2023-05-17 06:28] LABS: ALBUMIN 1.9 G/DL (3.2-5.2); ALKALINE PHOSPHATASE 97 U/L (46-116); ALT/SGPT < 9 U/L (7.0-40); AST/SGOT 17 U/L (<34); BILIRUBIN,TOTAL < 0.2 MG/DL (0.3-1.2); BLOOD UREA NITROGEN 30 MG/DL (9-23); CALCIUM LEVEL 8.9 MG/DL (8.5-10.1); CARBON DIOXIDE LEVEL 39 MMOL/L (20-31); CHLORIDE LEVEL 95 MMOL/L (98-107); GLOMERULAR FILTRATION RATE 9.1 (>60); GLUCOSE, FASTING 218 MG/DL (60-100); MAGNESIUM LEVEL 2.3 MG/DL (1.8-2.4); PHOSPHORUS LEVEL 5.2 MG/DL (2.5-4.9); POTASSIUM SERUM 3.7 MMOL/L (3.5-5.1); SODIUM LEVEL 136 MMOL/L (136-145); TOTAL PROTEIN 4.7 G/DL (5.7-8.2)
[2023-05-17] MEDS: METOCLOPRAMIDE INJ 10MG/2ML VIAL IV SCH (13:03)
[2023-05-17] MEDS ORDERED: ACETAMINOPHEN TAB 650MG DOSE (2X325MG) GT PRN (13:30)
[2023-05-17] MEDS ORDERED: **hydrALAZINE** 50 MG TAB JT PRN (13:40)
[2023-05-17] MEDS: INSULIN LISPRO (NovoLOG) PER UNIT SC ONE (13:43)
[2023-05-17] MEDS: oxyBUTYnin 5 MG TAB JT SCH (14:23)
[2023-05-17] MEDS: LABETALOL 100MG TAB JT SCH (14:25)
[2023-05-17] MEDS: INSULIN LISPRO (NovoLOG) PER UNIT SC SCH (18:06)
[2023-05-17] MEDS: amLODIPine 5 MG TAB JT SCH (20:55)
[2023-05-17] MEDS ORDERED: AMITRIPTYLINE 50 MG TAB GT SCH (21:00)
[2023-05-17] MEDS ORDERED: GABAPENTIN 300 MG CAP GT SCH (21:00)
[2023-05-17] MEDS ORDERED: SENOKOT S TAB JT SCH (21:00)
[2023-05-17] MEDS ORDERED: SENOKOT S TAB GT SCH (21:00)
[2023-05-17] MEDS ORDERED: DOCUSATE SOD LIQ 100MG/10ML UDC JT SCH (21:00)
[2023-05-17] MEDS ORDERED: SENNA 8.6 MG TAB (SENOKOT) JT SCH (21:00)
[2023-05-17] MEDS ORDERED: amLODIPine 5 MG TAB GT SCH (21:00)
[2023-05-17] MEDS: AMITRIPTYLINE 50 MG TAB JT SCH (21:16)
[2023-05-17] MEDS: GABAPENTIN 300 MG CAP JT SCH (21:16)
[2023-05-17] MEDS: SENOKOT S TAB JT SCH (21:16)
[2023-05-18 03:37] VITALS: BP 136/72; TEMP 99.2; O2SAT 94
[2023-05-18 05:55] LABS: ALBUMIN 1.9 G/DL (3.2-5.2); ALKALINE PHOSPHATASE 91 U/L (46-116); ALT/SGPT < 9 U/L (7.0-40); AST/SGOT 11 U/L (<34); BILIRUBIN,TOTAL < 0.2 MG/DL (0.3-1.2); BLOOD UREA NITROGEN 41 MG/DL (9-23); CALCIUM LEVEL 9.6 MG/DL (8.5-10.1); CARBON DIOXIDE LEVEL 37 MMOL/L (20-31); CHLORIDE LEVEL 94 MMOL/L (98-107); CREATININE FOR GFR 8.17 MG/DL (0.70-1.30); GLOMERULAR FILTRATION RATE 7.5 (>60); GLUCOSE, FASTING 193 MG/DL (60-100); MAGNESIUM LEVEL 2.5 MG/DL (1.8-2.4); PHOSPHORUS LEVEL 6.2 MG/DL (2.5-4.9); POTASSIUM SERUM 3.6 MMOL/L (3.5-5.1); SODIUM LEVEL 138 MMOL/L (136-145); TOTAL PROTEIN 4.7 G/DL (5.7-8.2)
[2023-05-18] MEDS ORDERED: HEPARIN 1,000UNITS/ML 10ML VIAL (FOR RADIOLOGY & DIALYSIS ONLY) XX SCH (06:00)
[2023-05-18] MEDS ORDERED: SODIUM CHLORIDE 0.9% 1000ML IV PRN (06:00)
[2023-05-18] MEDS ORDERED: HEPARIN 1,000UNITS/ML 10ML VIAL (FOR RADIOLOGY & DIALYSIS ONLY) IV PRN (06:00)
[2023-05-18 08:15] VITALS: BP 116/62; TEMP 97.9; O2SAT 96
[2023-05-18] MEDS: OMEPRAZOLE/SODIUM BICARB 20-840MG 10ML ORAL SYRINGE JT SCH (09:00)
[2023-05-18] MEDS ORDERED: CALCITRIOL 0.25 MCG CAP (S0169) GT SCH (09:00)
[2023-05-18] MEDS: LOSARTAN 50MG TABLET JT SCH (09:00)
[2023-05-18] MEDS: CALCITRIOL 0.25 MCG CAP (S0169) JT SCH (11:37)
[2023-05-18 11:59] VITALS: BP 142/78; TEMP 98.1; O2SAT 97
[2023-05-18] MEDS ORDERED: PHENYLephrine 500MCG 5ML (100MCG/ML) SYRINGE As Ordered ONE (13:06)
[2023-05-18] MEDS ORDERED: ePHEDrine SULFATE 25 MG/5 ML(5MG/ML) SYRINGE As Ordered ONE (13:06)
[2023-05-18] MEDS ORDERED: HEPARIN 1,000UNITS/ML 10ML VIAL (FOR RADIOLOGY & DIALYSIS ONLY) As Ordered ONE (13:23)
[2023-05-18] MEDS: LIDOCAINE W/EPINEPHRINE 1% 20ML VIAL As Ordered ONE (14:31)
[2023-05-18] MEDS ORDERED: DESFLURANE 240 ML INHALANT As Ordered ONE (15:42)
[2023-05-18] MEDS: HEPARIN SOD (PORCINE) 5000UNITS/ML 1ML VIAL/SYRINGE As Ordered ONE (17:00)
[2023-05-18] MEDS ORDERED: ONDANSETRON 4MG 2ML VIAL IV PRN (18:10)
[2023-05-18] MEDS ORDERED: HYDROMORPHONE HCL 0.5 MG/ 0.5 ML SYRINGE IV PRN (18:10)
[2023-05-18] MEDS ORDERED: NS 1,000 ML IV SCH (18:10)
[2023-05-18] MEDS ORDERED: fentaNYL 100 MCG/2 ML INJECTION IV PRN (18:10)
[2023-05-18] MEDS: oxyCODONE 5MG TAB PO PRN (18:36)
[2023-05-18 20:20] VITALS: BP 132/64
[2023-05-18] MEDS: ACETAMINOPHEN TAB 650MG DOSE (2X325MG) JT PRN (21:01)
[2023-05-18] MEDS: RAMELTEON 8 MG TAB (ROZEREM) JT PRN (21:01)
[2023-05-18] MEDS: PERCOCET 5MG/325MG TAB JT PRN (21:15)
[2023-05-18] MEDS: HYDROMORPHONE HCL 0.5 MG/ 0.5 ML SYRINGE IV PRN (23:45)
[2023-05-18 23:49] VITALS: BP 190/92; TEMP 97.3; O2SAT 100
[2023-05-19] VITALS (7 sets, daily range): BP systolic 113–162; BP diastolic 65–87; TEMP 97.2–98.4; O2SAT 92–98
[2023-05-19] MEDS ORDERED: hydrOXYzine 50 MG TAB JT STA (00:24)
[2023-05-19] MEDS: PROMETHAZINE 25MG/ML 1ML VIAL IV ONE (01:00)
[2023-05-19] MEDS: ALPRAZolam 0.5 MG TAB JT PRN (03:25)
[2023-05-19] MEDS: SCOPOLAMINE 1MG TRANSDERMAL PATCH TOP SCH (03:26)
[2023-05-19] MEDS ORDERED: SODIUM CHLORIDE 0.9% 1000ML IV PRN (06:00)
[2023-05-19] MEDS ORDERED: HEPARIN 1,000UNITS/ML 10ML VIAL (FOR RADIOLOGY & DIALYSIS ONLY) XX SCH (06:00)
[2023-05-19] MEDS ORDERED: HEPARIN 1,000UNITS/ML 10ML VIAL (FOR RADIOLOGY & DIALYSIS ONLY) IV PRN (06:00)
[2023-05-19] MEDS: LORazepam 2 MG/ML 1ML VIAL IV STA (09:38)
[2023-05-19] MEDS: METOCLOPRAMIDE INJ 10MG/2ML VIAL IV ONE (18:31)
[2023-05-20] VITALS (7 sets, daily range): BP systolic 78–160; BP diastolic 50–81; TEMP 96.9–98.3; O2SAT 95–100
[2023-05-20 10:07] LABS: ALBUMIN 2.6 G/DL (3.2-5.2); ALKALINE PHOSPHATASE 107 U/L (46-116); ALT/SGPT < 9 U/L (7.0-40); AST/SGOT 20 U/L (<34); BILIRUBIN,TOTAL 0.2 MG/DL (0.3-1.2); BLOOD UREA NITROGEN 33 MG/DL (9-23); CALCIUM LEVEL 10.7 MG/DL (8.5-10.1); CARBON DIOXIDE LEVEL 32 MMOL/L (20-31); CHLORIDE LEVEL 90 MMOL/L (98-107); CREATININE FOR GFR 6.17 MG/DL (0.70-1.30); GLOMERULAR FILTRATION RATE 10.4 (>60); GLUCOSE, FASTING 258 MG/DL (60-100); SODIUM LEVEL 141 MMOL/L (136-145); TOTAL PROTEIN 6.2 G/DL (5.7-8.2)
[2023-05-20] MEDS: ALPRAZolam 0.5 MG TAB JT PRN (11:55)
[2023-05-20] MEDS: cloNIDine HCL 0.2 MG/24 HR PATCH TOP SCH (17:06)
[2023-05-20] MEDS: MIDODRINE 5 MG TAB JT STA (23:09)
[2023-05-21] VITALS (11 sets, daily range): BP systolic 79–140; BP diastolic 50–90; TEMP 97.4–98.3; O2SAT 92–98
[2023-05-21] MEDS: SODIUM CHLORIDE 0.9% 1000ML IV STA (01:38)
[2023-05-21] MEDS: HYDROCORTISONE 100MG/2ML VIAL IV STA (01:38)
[2023-05-21] MEDS: PRAMIPEXOLE (MIRAPEX) 0.125 MG TAB JT STA (03:06)
[2023-05-21] MEDS ORDERED: HEPARIN 1,000UNITS/ML 10ML VIAL (FOR RADIOLOGY & DIALYSIS ONLY) XX SCH (07:20)
[2023-05-21] MEDS ORDERED: HEPARIN 1,000UNITS/ML 10ML VIAL (FOR RADIOLOGY & DIALYSIS ONLY) IV PRN (07:20)
[2023-05-21] MEDS ORDERED: SODIUM CHLORIDE 0.9% 1000ML IV PRN (07:20)
[2023-05-21 07:54] LABS: HEMATOCRIT 34.2 % (42.0-52.0); HEMOGLOBIN 11.1 g/dl (13.5-17.5); MEAN CORPUSCULAR HEMOGLOBIN 30.2 pg (27.0-33.0); MEAN CORPUSCULAR HGB CONC 32.5 g/dl (32.0-36.5); MEAN CORPUSCULAR VOLUME 92.9 fl (80.0-96.0); PLATELET COUNT, AUTOMATED 298 10^3/uL (150-450); RED BLOOD COUNT 3.68 10^6/uL (4.30-6.10)
[2023-05-21 08:23] LABS: ALBUMIN 2.4 G/DL (3.2-5.2); BLOOD UREA NITROGEN 48 MG/DL (9-23); CALCIUM LEVEL 10.9 MG/DL (8.5-10.1); CARBON DIOXIDE LEVEL > 40.0 MMOL/L (20-31); CHLORIDE LEVEL 77 MMOL/L (98-107); CREATININE FOR GFR 8.05 MG/DL (0.70-1.30); GLOMERULAR FILTRATION RATE 7.6 (>60); GLUCOSE, FASTING 477 MG/DL (60-100); PHOSPHORUS LEVEL 9.5 MG/DL (2.5-4.9); POTASSIUM SERUM 3.9 MMOL/L (3.5-5.1); SODIUM LEVEL 137 MMOL/L (136-145)
[2023-05-21] MEDS: NS 1,000 ML IV ONE (09:28)
[2023-05-21 09:49] LABS: VENOUS BASE EXCESS 2.8 (-2.0-2.0); VENOUS HCO3 29.6 MMOL/L (23.0-27.0); VENOUS O2 SATURATION 85.6 % (60.0-80.0); VENOUS PARTIAL PRESSURE CO2 57.2 mmHg (38.0-50.0); VENOUS PARTIAL PRESSURE O2 59.2 mmHg (30.0-50.0); VENOUS PH 7.332 UNITS (7.330-7.430); VENOUS STANDARD HCO3 26.7 MMOL/L; VENOUS TOTAL CO2 31.4 MMOL/L (24.0-28.0)
[2023-05-21] MEDS: LEVEMIR (INSULIN DETEMIR) 1 UNITS/0.01ML SC SCH (14:30)
[2023-05-21] MEDS: PROMETHAZINE 25MG SUPP PR ONE (15:25)
[2023-05-21] MEDS: NITROGLYCERIN 0.4MG SUBL TABLET SL STA (18:26)
[2023-05-21 19:21] LABS: CK-MB VALUE MASS < 1.0 NG/ML (<3.6)
[2023-05-21 19:34] LABS: CPK CREATINE PHOSPHOKINASE 106 U/L (46-171); MB/CK RELATIVE INDEX 0.94 (< OR =4)
[2023-05-21 20:03] LABS: BLOOD UREA NITROGEN 17 MG/DL (9-23); CALCIUM LEVEL 11.8 MG/DL (8.5-10.1); CARBON DIOXIDE LEVEL 33 MMOL/L (20-31); CHLORIDE LEVEL 99 MMOL/L (98-107); CREATININE FOR GFR 3.57 MG/DL (0.70-1.30); GLOMERULAR FILTRATION RATE 19.5 (>60); GLUCOSE, FASTING 168 MG/DL (60-100); POTASSIUM SERUM 3.7 MMOL/L (3.5-5.1); SODIUM LEVEL 140 MMOL/L (136-145)
[2023-05-21] MEDS: ATORVASTATIN 20 MG TAB JT STA (20:21)
[2023-05-21] MEDS: METOPROLOL TART 12.5 MG PER 1/2 TAB JT STA (20:21)
[2023-05-21] MEDS: ASPIRIN 300 MG SUPP PR STA (20:21)
[2023-05-21] MEDS: HYDROMORPHONE HCL 0.5 MG/ 0.5 ML SYRINGE IV STA (20:22)
[2023-05-21] MEDS ORDERED: ACET1TAB55 JT (23:33)
[2023-05-21] MEDS ORDERED: HYDR50TA46 JT (23:33)
[2023-05-21] MEDS ORDERED: GABA-282 JT (23:33)
[2023-05-21] MEDS ORDERED: RENV2TAB PO (23:33)
[2023-05-21] MEDS ORDERED: ALPR0.5T3 JT (23:33)
[2023-05-21] MEDS ORDERED: CALC1CAP31 JT (23:33)
[2023-05-21] MEDS ORDERED: SENN-52 JT (23:33)
[2023-05-21] MEDS ORDERED: AMIT50TA JT (23:33)
[2023-05-21] MEDS ORDERED: INSUDET SC (23:33)
[2023-05-21] MEDS ORDERED: RAME8TAB2 JT (23:33)
[2023-05-21] MEDS ORDERED: OXYB5TAB14 JT (23:33)
[2023-05-21] MEDS ORDERED: HYDR0.5S8 IV (23:33)
[2023-05-21] MEDS ORDERED: PERCOCET JT (23:33)
[2023-05-21] MEDS ORDERED: OMEP90SU JT (23:33)
[2023-05-21] MEDS ORDERED: INSUHUMDS SC (23:33)
== END 2023-05-22 00:28 | disposition short-term general hospital (02) | DRG 981 ==
LOC: M ED 15:23 → M ED INP 19:50 → M MSPAV 22:37 → M PCU 05-06 03:03 → M ICU 05-06 04:40 → M PCU 05-07 22:48 → M ICU 05-13 08:58 → M PCU 05-16 21:17
PROVIDERS: ADMIT Internal Medicine; ATTEND Internal Medicine
PROC: 30233N1 Transfusion of Nonautologous Red Blood Cells into Peripheral Vein, Percutaneous Approach (ICD-10-PCS; 2023-05-07)
PROC: 0DH63UZ Insertion of Feeding Device into Stomach, Percutaneous Approach (ICD-10-PCS; 2023-05-10)
PROC: 06HM33Z Insertion of Infusion Device into Right Femoral Vein, Percutaneous Approach (ICD-10-PCS; 2023-05-14)
PROC: 5A1D70Z Performance of Urinary Filtration, Intermittent, Less than 6 Hours Per Day (ICD-10-PCS; 2023-05-14)
PROC: 0DHA4UZ Insertion of Feeding Device into Jejunum, Percutaneous Endoscopic Approach (ICD-10-PCS; 2023-05-18)
PROC: 0WP Anatomical Regions, General, Removal (ICD-10-PCS; principal; 2023-05-18 14:00)
PROC: 0WJG4ZZ Inspection of Peritoneal Cavity, Percutaneous Endoscopic Approach (ICD-10-PCS; 2023-05-18 14:00)
DX: E10.43 Type 1 diabetes mellitus with diabetic autonomic (poly)neuropathy (principal); N18.6 End stage renal disease; I21.4 Non-ST elevation (NSTEMI) myocardial infarction; E87.1 Hypo-osmolality and hyponatremia; I12.0 Hypertensive chronic kidney disease with stage 5 chronic kidney disease or end stage renal disease; K94.13 Enterostomy malfunction; E46 Unspecified protein-calorie malnutrition; Z68.1 Body mass index [BMI] 19.9 or less, adult; I16.0 Hypertensive urgency; E10.22 Type 1 diabetes mellitus with diabetic chronic kidney disease; I48.91 Unspecified atrial fibrillation; E87.6 Hypokalemia; K31.84 Gastroparesis; D63.1 Anemia in chronic kidney disease; E86.0 Dehydration; E87.70 Fluid overload, unspecified; K21.00 Gastro-esophageal reflux disease with esophagitis, without bleeding; K29.50 Unspecified chronic gastritis without bleeding; K59.00 Constipation, unspecified; F41.1 Generalized anxiety disorder; F41.0 Panic disorder [episodic paroxysmal anxiety]; I95.2 Hypotension due to drugs; Z79.899 Other long term (current) drug therapy; Z79.4 Long term (current) use of insulin